=== PATIENT | male | born 1950 | race Caucasian/White ===

== ENCOUNTER 2019-12-27 12:19 | Emergency (ER) | payer MEDICARE, MEDICAID, SELFPAY ==
[2019-12-27] VITALS (27 sets, daily range): BP systolic 84–145; BP diastolic 51–72; PULSE 52–61; RESP 12–32; TEMP 36.8; O2SAT 98
--- NOTE | ~2019-12-27 | XR_ITS ---
EXAMINATION: XR chest 2V DATE: 12/27/2019 13:30 INDICATION: Weakness. Dizziness. TECHNIQUE: frontal and lateral views of the chest were obtained. COMPARISON: Chest radiograph dated 05/05/2019 FINDINGS: The lungs are clear with no focal airspace opacities, pulmonary edema, pleural effusion or pneumothor ax. The cardiomediastinal silhouette is normal. There are couple surgical clips projecting over the m edial aspect of the right posterior sulcus. IMPRESSION: 1. No acute cardiopulmonary disease. Reviewed, dictated and finalized at location A.
--- NOTE | 2019-12-27 12:59 | ECG_ITS ---
Measurements Intervals [place] Rate: 52 P: 68 ME: 187 QRS: 26 QRSD: 105 T: 75 QT: 453 QTc: 422 Interpretive Statements SINUS BRADYCARDIA MINIMAL Q WAVES- HIGH LATERAL LEADS BORDERLINE ECG Electronically Signed On 12-27-2019 13:19:38 CDT by Sancho Live D.O.
[2019-12-27] MEDS: SODIUM CHLORIDE 0.9% IV 1,000 ML 999 ML IV CONT (13:18)
[2019-12-27 13:32] LABS: Basophils Absolute Auto 0.1 K/mm3 (0.0-0.1); Basophils Percent Auto 0.6 % (0.2-1.2); Eosinophils Absolute Auto 0.2 K/mm3 (0-0.3); Eosinophils Percent Auto 1.7 % (0-4.4); Hematocrit 41.1 % (42.0-52.0); Hemoglobin 13.9 g/dL (14.0-18.0); Immature Granulocyte Absolute 0.04 K/mm3 (0.00-0.031); Immature Granulocyte Percent A 0.4 % (0-0.5); Lymphocytes Absolute Auto 1.15 K/mm3 (0.9-3.2); Lymphocytes Percent Auto 10.7 % (18.3-44.2); Mean Corpuscular HGB Conc 33.8 g/dl (32-36); Mean Corpuscular Hemoglobin 30.6 pg (26-34); Mean Corpuscular Volume 90.5 fl (80-100); Mean Platelet Volume 10.3 fl (7.4-10.4); Monocytes Absolute Auto 0.7 K/mm3 (0.1-0.6); Monocytes Percent Auto 6.2 % (2.6-8.5); Neutrophils Absolute Auto 8.6 K/mm3 (1.3-6.7); Neutrophils Percent Auto 80.4 % (45.5-73.1); Platelet Count Result 147 k/mm3 (150-375); Red Blood Count 4.54 M/mm3 (4.6-6.20); Red Cell Distribution Width 13.6 % (11.5-14.5); White Blood Count 10.7 K/mm3 (4.5-10.0)
[2019-12-27 13:45] LABS: Blood Urea Nitrogen 21 mg/dL (9-20); Calcium 8.3 mg/dL (8.4-10.2); Carbon Dioxide 25 mmol/L (22-30); Chloride 108 mmol/L (98-107); Estimated CRCL calculation 55 ml/min; Estimated Glomerular Filt Rate 60; Glucose 82 mg/dL (75-110); Potassium 4.6 mmol/L (3.4-5.0); Sodium 138 mmol/L (137-145)
--- NOTE | 2019-12-27 16:02 | PC.NURSE ---
Pt ambulated without difficulty. Pt denies dizziness or lightheadedness. Pt denies weakness.
--- NOTE | 2019-12-27 16:15 | ED.DIZZY ---
HPI - Dizziness General Chief Complaint: Dizziness Stated Complaint: WEAKNESS,DIZZY Time Seen by Provider: 12/27/19 13:07 History of Present Illness HPI Narrative: Patient is a 69-year-old male who presents the ER with dizziness. Patient reports he took his home medications this morning for the first time in years. A short time later he felt lightheaded and then he was so weak he could not get his head up off of his table. He went to his primary care physician yesterday and had the nurse put all of his pills in a medicine c4 planner. Patient does not know any of the medicines he takes or what they are for. Denies any chest pain or shortness of breath. No nausea/vomiting/confusion Related Data Home Medications Medication Instructions Recorded Confirmed amlodipine 12/27/19 aspirin 12/27/19 atorvastatin 12/27/19 clopidogrel 12/27/19 gabapentin 12/27/19 levothyroxine 12/27/19 lisinopril 12/27/19 metoprolol succinate PO 12/27/19 pantoprazole PO 12/27/19 quetiapine 12/27/19 Allergies Allergy/AdvReac Type Severity Reaction Status Date / Time No Known Allergies Allergy Unknown Verified 12/27/19 12:19 No Known Allergies Allergy Other Uncoded 12/27/19 12:19 Review of Systems Review of Systems: All systems reviewed & are unremarkable except as noted in HPI and below Constitutional: Constitutional: Denies chills, Denies fever(s) and Reports weakness ENT: Denies nasal congestion and Denies sore throat Cardiovascular: Cardiovascular: Denies chest pain and Denies radiating jaw, neck or arm pain Respiratory: Respiratory: Denies cough, Denies dyspnea and Denies wheezing Gastrointestinal: Gastrointestinal: Denies abdominal pain, Denies nausea and Denies vomiting PMFSH Past Medical History Medical History (Updated 12/27/19 @ 17:57 by Arjun Hernandez MD) CVA (cerebral vascular accident) Hypercholesterolemia Hypertension Hypothyroidism Surgical History Surgical History (Updated 12/27/19 @ 16:19 by Arjun Hernandez MD) H/O right nephrectomy Social History Social History (Updated 12/27/19 @ 16:20 by Arjun Hernandez MD) Smoking status: Never smoker Gender identity (if verbalized by the patient): Male Exam Narrative: Exam Narrative: GENERAL: Well-appearing, well-nourished, and in no acute distress. HEAD: Normocephalic, atraumatic. ENT: Mucous membranes moist. CHEST: Clear to auscultation. No respiratory distress. HEART: Regular rate and rhythm. Normal peripheral pulses. ABDOMEN: Soft, nontender, nondistended. EXTREMITIES: Normal range of motion. No edema. SKIN: Warm, dry, no rash. NEURO: Alert and oriented x3. Course Course Emergency Course: Patient up and ambulatory without issue. Blood pressures responded well to hydration. Suspect patient had a adverse reaction to his medications since he had been poorly compliant and is now taking them all appropriately. Recommend he not take any of his medications, he plans on going to his primary care doctor's office tomorrow to discuss his medications further. I have attempted to contact his PCP without success. Vital Signs Vital signs: Vital Signs Temperature 98.2 F 12/27/19 12:20 Pulse Rate 52 L 12/27/19 12:20 Respiratory Rate 16 12/27/19 12:20 Blood Pressure 84/51 L 12/27/19 12:20 Pulse Oximetry 98 12/27/19 12:20 Temperature 98.2 F 12/27/19 12:20 Pulse Rate 58 L 12/27/19 17:30 Respiratory Rate 14 12/27/19 17:30 Blood Pressure 122/66 12/27/19 17:16 Pulse Oximetry 98 12/27/19 12:20 MDM - Dizziness Lab Data Result diagrams: 12/27/19 13:27 12/27/19 13:27 Labs: Lab Results 12/27/19 12/27/19 12/27/19 Range/Units 13:27 13:27 13:27 WBC 10.7 H (4.5-10.0) K/mm3 RBC 4.54 L (4.6-6.20) M/mm3 Hgb 13.9 L (14.0-18.0) g/dL Hct 41.1 L (42.0-52.0) % MCV 90.5 (80-100) fl MCH 30.6 (26-34) pg MCHC 33.8 (32-36) g/dl RDW 13.6 (11.5
== END 2019-12-27 18:06 | disposition home or self-care (01) ==
PROVIDERS: Emergency Provider Emergency Medicine
DX: I95.9 Hypotension, unspecified (principal); T50.905A Adverse effect of unspecified drugs, medicaments and biological substances, initial encounter; Z86.73 Personal history of transient ischemic attack (TIA), and cerebral infarction without residual deficits; E78.00 Pure hypercholesterolemia, unspecified; I10 Essential (primary) hypertension; E03.9 Hypothyroidism, unspecified; Z90.5 Acquired absence of kidney; R00.1 Bradycardia, unspecified
CPT/HCPCS: 36415; 71046; 80048; 83605; 85025; 93005; 96360; 99283; J7030

== ENCOUNTER 2020-05-17 08:30 | Emergency (ER) | payer MEDICARE, MEDICAID, SELFPAY ==
--- NOTE | ~2020-05-17 | XR_ITS ---
EXAMINATION: XR chest 1V portable DATE: 05/17/2020 09:33 INDICATION: Shortness of breath TECHNIQUE: frontal view of the chest was obtained. COMPARISON: Chest radiograph dated 12/27/2019 FINDINGS: Small calcified nodule in the right midlung zone and calcified right hilar and mediastinal lymph node s, all consistent with old granulomatous disease. No other airspace opacities, pulmonary edema, pleur al effusion or pneumothorax. There are a couple tiny surgical clips at the medial aspect of the right posterior sulcus as seen on CT dated 01/21/2018 and which may be related to prior lung biopsy. The ca rdiomediastinal silhouette is normal. IMPRESSION: 1. No acute cardiopulmonary disease. Reviewed, dictated and finalized at location A.
[2020-05-17 08:40] VITALS: BP 157/86; PULSE 67; RESP 23; TEMP 36.8; O2SAT 96
--- NOTE | 2020-05-17 08:54 | ECG_ITS ---
Measurements Intervals [place] Rate: 64 P: 71 FL: 158 QRS: -49 QRSD: 100 T: 76 QT: 409 QTc: 424 Interpretive Statements SINUS RHYTHM LEFT ANTERIOR FASCICULAR BLOCK ABNORMAL ECG Electronically Signed On 05-17-2020 11:23:47 CDT by Sancho Live D.O.
--- NOTE | 2020-05-17 08:55 | ED.SOB ---
HPI - SOB/Dyspnea General Chief Complaint: Shortness of Breath/Dyspnea Stated Complaint: SOB Time Seen by Provider: 05/17/20 08:42 Source: patient Mode of arrival: EMS Limitations: no limitations History of Present Illness HPI Narrative: This patient is a 69 year old male who presents for evaluation of sob and possible covid. He states for the past 2 weeks he has been having sinus congestion and drainage. HE also reports over the past 2 days he feels like he is sob and he needs to take an extra breath. He denies nausea, vomiting, fever, chills, abdominal pain or chest pain. He states he did have diarrhea 3 days ago. His physician recommended that he go to the hospital to get evaluated for covid. He denies sick contacts. MD elicited complaint: shortness of breath Related Data Home Medications Medication Instructions Recorded Confirmed amlodipine 12/27/19 aspirin 12/27/19 atorvastatin 12/27/19 clopidogrel 12/27/19 gabapentin 12/27/19 levothyroxine 12/27/19 lisinopril 12/27/19 metoprolol succinate PO 12/27/19 pantoprazole PO 12/27/19 quetiapine 12/27/19 Allergies Allergy/AdvReac Type Severity Reaction Status Date / Time No Known Allergies Allergy Unknown Verified 05/17/20 08:56 No Known Allergies Allergy Other Uncoded 05/17/20 08:56 Review of Systems Review of Systems: All systems reviewed & are unremarkable except as noted in HPI and below Constitutional: Constitutional: Denies chills and Denies fever(s) ENT: Reports nasal congestion Cardiovascular: Cardiovascular: Denies chest pain Respiratory: Respiratory: Denies cough and Reports dyspnea Gastrointestinal: Gastrointestinal: Denies abdominal pain, Reports diarrhea (3 days ago) and Denies nausea Neurologic: Reports headache(s) PMFSH Past Medical History Medical History (Updated 05/17/20 @ 11:42 by Michelle Parrish MD) CVA (cerebral vascular accident) Hypercholesterolemia Hypertension Hypothyroidism Surgical History Surgical History (Updated 12/27/19 @ 16:19 by Arjun Hernandez MD) H/O right nephrectomy Social History Social History (Updated 12/27/19 @ 16:20 by Arjun Hernandez MD) Smoking status: Never smoker Gender identity (if verbalized by the patient): Male Exam Narrative: Exam Narrative: GENERAL: Well-appearing, well-nourished, and in no acute distress. HEAD: Normocephalic, atraumatic EYES: PERRLA and EOMI, conjunctiva clear without discharge EARS: TM's clear bilaterally without erythema or dullness NOSE: Nares clear, no rhinorrhea or epistaxis THROAT:Mucous membranes moist, Oropharynx normal without erythema, exudate, peritonsillar swelling or fluctuance NECK: Supple, without lymphadenopathy or mass RESPIRATORY: No respiratory distress, Airway patent, Respirations non-labored, Clear to auscultation without rales, rhonchi or wheeze HEART: Regular rate and rhythm. No murmur heard. Normal peripheral pulses. ABDOMEN: Soft, nontender, nondistended, normal active bowel sounds. No masses. No rebound or guarding, No organomegaly. EXTREMITIES: No edema, normal strength with full range of motion. SKIN: Warm, dry, normal color without rash NEURO: Alert and oriented x3. CN 2-12 grossly intact. No focal deficits. PSYCH: Normal mood and affect. Course Reevaluation(s) Reevaluation #1: I have discussed with patient that his evaluation has been unremarkable . He will be tested for covid. He is stable for discharge. Date: 05/17/20 Time: 11:39 Vital Signs Vital signs: Vital Signs Temperature 98.3 F 05/17/20 08:40 Pulse Rate 67 05/17/20 08:40 Respiratory Rate 23 H 05/17/20 08:40 Blood Pressure 157/86 H 05/17/20 08:40 Pulse Oximetry 96 05/17/20 08:40 Temperature 98.3 F 05/17/20 08:40 Pulse Rate 66 05/17/20 11:51 Respiratory Rate 18 05/17/20 11:51 Blood Pressure 118/66 05/17/20 11:51 Pulse Oximetry 99 05/17/20 11:51 MDM - SOB/Dyspnea Lab Data Attestation
[2020-05-17 09:11] LABS: Basophils Absolute Auto 0.1 K/mm3 (0.0-0.1); Basophils Percent Auto 0.9 % (0.2-1.2); Eosinophils Absolute Auto 0.3 K/mm3 (0-0.3); Eosinophils Percent Auto 3.3 % (0-4.4); Hematocrit 52.9 % (42.0-52.0); Hemoglobin 17.8 g/dL (14.0-18.0); Immature Granulocyte Absolute 0.03 K/mm3 (0.00-0.031); Immature Granulocyte Percent A 0.3 % (0-0.5); Lymphocytes Absolute Auto 1.88 K/mm3 (0.9-3.2); Lymphocytes Percent Auto 21.1 % (18.3-44.2); Mean Corpuscular HGB Conc 33.6 g/dl (32-36); Mean Corpuscular Hemoglobin 30.7 pg (26-34); Mean Corpuscular Volume 91.2 fl (80-100); Mean Platelet Volume 10.5 fl (7.4-10.4); Monocytes Percent Auto 10.9 % (2.6-8.5); Neutrophils Absolute Auto 5.7 K/mm3 (1.3-6.7); Neutrophils Percent Auto 63.5 % (45.5-73.1); Platelet Count Result 178 k/mm3 (150-375); Red Cell Distribution Width 13.6 % (11.5-14.5); White Blood Count 8.9 K/mm3 (4.5-10.0)
[2020-05-17 09:16] LABS: Alveolar/Arterial O2 Gradient 26.6 mmHg; Base Excess ABG -1.2 mEq/l (+/-2.0); Fractional Inspired Oxygen 21 %; HCO3 ABG 21.9 mEq/l (22.0-26.0); Oxygen Content ABG 23.5 %vol (16.0-22.0); Oxygen Saturation ABG 96.7 % (95.0-100.0); PO2 ABG 83.6 mmHg (80.0-100.0); PO2 FiO2 Ratio Arterial Blood 3.98 %
[2020-05-17 09:18] LABS: Alanine Aminotransferase 10 U/L (4-50); Albumin Level 4.2 g/dL (3.5-5.1); Alkaline Phosphatase 63 U/L (38-126); Anion Gap 9 mmol/L (8-16); Aspartate Amino Transferase 20 U/L (17-59); Bilirubin,Total 0.8 mg/dL (0.2-1.3); Blood Urea Nitrogen 19 mg/dL (9-20); Calcium 9.6 mg/dL (8.4-10.2); Carbon Dioxide 27 mmol/L (22-30); Chloride 105 mmol/L (98-107); Estimated CRCL calculation 65 ml/min; Estimated Glomerular Filt Rate > 60; Glucose 102 mg/dL (75-110); Sodium 141 mmol/L (137-145)
[2020-05-17 09:18] LABS: Device ROOM AIR; Modified Allen's Test Pass; Site Drawn RIGHT RADIAL
[2020-05-17 09:24] LABS: CRP 1.5 mg/dL (<1.0); D Dimer 0.44 ug/mL (<0.48)
[2020-05-17 11:24] VITALS: BP 123/57; PULSE 78; RESP 18; O2SAT 98
[2020-05-17 11:51] VITALS: BP 118/66; PULSE 66; RESP 18; O2SAT 99
[2020-05-17 23:13] LABS: SARS-CoV-2 RNA PCR Negative
== END 2020-05-17 11:52 | disposition home or self-care (01) ==
PROVIDERS: Emergency Provider General Practice
DX: R06.00 Dyspnea, unspecified (principal); Z20.828 Contact with and (suspected) exposure to other viral communicable diseases; Z86.73 Personal history of transient ischemic attack (TIA), and cerebral infarction without residual deficits; E78.00 Pure hypercholesterolemia, unspecified; I10 Essential (primary) hypertension; E03.9 Hypothyroidism, unspecified; Z90.5 Acquired absence of kidney; I44.4 Left anterior fascicular block
CPT/HCPCS: 36415; 36600; 71045; 80053; 82805; 85025; 85380; 86140; 87635; 93005; 99284; C9803; U0003

== ENCOUNTER 2021-12-17 14:02 | Emergency (ER) | payer MEDICARE, MEDICAID, SELFPAY ==
--- NOTE | ~2021-12-17 | XR_ITS ---
EXAMINATION: XR chest 2V Exam Date/Time: 12/17/2021 17:08 CDT CLINICAL HISTORY: dizziness,SOB X 2 DAYS stroke protocal HX CVA,HTN Comparison: None available. RESULT: Lines, tubes, and devices: Right posterior chest surgical clips. Lungs and pleura: Senescent/emphysematous change. Prior granulomatous disease. Otherwise clear. Cardiomediastinal silhouette: Stable cardiomediastinal silhouette. Other: No acute osseous or upper abdominal finding. IMPRESSION: No acute cardiopulmonary process Reviewed, dictated and finalized at location K.
--- NOTE | ~2021-12-17 | CT_ITS ---
EXAMINATION: CT brain wo con DATE: 12/17/2021 17:15 INDICATION: dizziness TECHNIQUE: Computed tomography (CT) of the head was performed without intravenous contrast. The mA wa s adjusted according to patient size. Iterative reconstruction technique was employed. The dose-lengt h product was 529.67 mGy-cm. COMPARISON: 06/04/2019 FINDINGS: No acute intracranial hemorrhage or extra-axial fluid collection. No hydrocephalus, mass, or herniation. No acute ischemic infarct. Unremarkable dural venous sinus attenuation. No acute osseous abnormality. The aerated spaces are clear. Moderate atrophy and chronic white matter change. Atherosclerotic intracranial calcifications. Old ri ght internal capsular and periventricular infarct. IMPRESSION: No acute intracranial process. Reviewed, dictated and finalized at location K.
[2021-12-17 14:51] VITALS: BP 118/67; PULSE 69; RESP 18; TEMP 36.6; O2SAT 98
--- NOTE | 2021-12-17 14:59 | ECG_ITS ---
Measurements Intervals [place] Rate: 61 P: 83 PA: 184 QRS: 62 QRSD: 91 T: 73 QT: 409 QTc: 413 Interpretive Statements SINUS RHYTHM NORMAL ECG Electronically Signed On 12-17-2021 15:18:07 CDT by Sancho Live D.O.
[2021-12-17 15:14] LABS: Basophils Absolute Auto 0.1 K/mm3 (0.0-0.1); Eosinophils Absolute Auto 0.3 K/mm3 (0-0.3); Eosinophils Percent Auto 3.2 % (0-4.4); Immature Granulocyte Absolute 0.03 K/mm3 (0.00-0.031); Immature Granulocyte Percent A 0.3 % (0-0.5); Lymphocytes Absolute Auto 2.78 K/mm3 (0.9-3.2); Lymphocytes Percent Auto 31.9 % (18.3-44.2); Mean Corpuscular Hemoglobin 31.9 pg (26-34); Mean Corpuscular Volume 93.8 fl (80-100); Mean Platelet Volume 9.9 fl (7.4-10.4); Monocytes Absolute Auto 0.7 K/mm3 (0.1-0.6); Monocytes Percent Auto 7.5 % (2.6-8.5); Neutrophils Absolute Auto 4.9 K/mm3 (1.3-6.7); Neutrophils Percent Auto 56.1 % (45.5-73.1); Platelet Count Result 191 k/mm3 (150-375); Red Blood Count 5.33 M/mm3 (4.6-6.20); Red Cell Distribution Width 13.6 % (11.5-14.5); White Blood Count 8.7 K/mm3 (4.5-10.0)
[2021-12-17 15:29] LABS: Alanine Aminotransferase 9 U/L (6-50); Albumin Level 4.5 g/dL (3.5-5.1); Alkaline Phosphatase 50 U/L (38-126); Anion Gap 8 mmol/L (8-16); Aspartate Amino Transferase 23 U/L (17-59); Bilirubin,Total 0.4 mg/dL (0.2-1.3); Blood Urea Nitrogen 13 mg/dL (9-20); Calcium 9.4 mg/dL (8.4-10.2); Carbon Dioxide 27 mmol/L (22-30); Chloride 102 mmol/L (98-107); Estimated CRCL calculation 78 ml/min; Estimated Glomerular Filt Rate > 60; Glucose 81 mg/dL (65-110); Potassium 3.9 mmol/L (3.4-5.0); Sodium 137 mmol/L (137-145)
--- NOTE | 2021-12-17 16:41 | ED.DIZZY ---
HPI - Dizziness General Chief Complaint: Dizziness Stated Complaint: DIZZINESS X WEEKS Time Seen by Provider: 12/17/21 16:41 Source: patient Mode of arrival: EMS Limitations: no limitations History of Present Illness HPI Narrative: The patient is a 71-year-old male with a history of previous CVA with left-sided deficit, hypertension, hyperlipidemia, presenting to the emergency department for evaluation of dizziness. Patient reports dizziness has been ongoing over the past several months, worsening in frequency over the past 2 weeks. Patient reports dizziness that will occur suddenly while he is at rest but does exacerbated with movement. Patient reports current dizziness at the time of assessment. He denies headache, vision changes. He reports difficulty hearing out of his left ear. He reports chronic left upper and lower extremity weakness secondary to his initial CVA over 2 years ago. Patient takes a daily statin, blood pressure medication but denies any anticoagulation. Patient lives at home and is able to function independently. Patient denies recent fall or injury. Denies recent head trauma. Patient denies any chest pain, reports at times he does feel short of breath. Patient is still smoking cigarettes and marijuana. He denies alcohol use. Patient denies any difficulty with speech, facial droop. He denies dysarthria. Patient lives alone, states that he is having increasing difficulty to complete his ADLs secondary to the dizziness. Related Data Home Medications Medication Instructions Recorded Confirmed amlodipine 12/27/19 aspirin 12/27/19 atorvastatin 12/27/19 clopidogrel 12/27/19 gabapentin 12/27/19 levothyroxine 12/27/19 lisinopril 12/27/19 metoprolol succinate PO 12/27/19 pantoprazole PO 12/27/19 quetiapine 12/27/19 Allergies Allergy/AdvReac Type Severity Reaction Status Date / Time No Known Allergies Allergy Unknown Verified 05/17/20 08:56 Review of Systems Review of Systems: CONSTITUTIONAL: Denies fever, chills, or sweats. EYES: Denies visual changes, redness, or discharge. ENT: Denies rhinorrhea, congestion, sore throat, or otalgia. CARDIOVASCULAR: Denies chest pain, palpitations, or edema. RESPIRATORY: Denies cough or dyspnea. GASTROINTESTINAL: Denies abdominal pain, nausea, vomiting, or diarrhea. GENITOURINARY: Denies dysuria or hematuria. SKIN: Denies rash or itching. MUSCULOSKELETAL: Denies back pain, joint pain, or myalgia. NEUROLOGIC: Denies headache, reports dizziness, reports left-sided upper and lower extremity weakness, chronic PMFSH Past Medical History Medical History CVA (cerebral vascular accident) Hypercholesterolemia Hypertension Hypothyroidism Surgical History Surgical History H/O right nephrectomy Social History Social History Smoking status: Never smoker Gender identity (if verbalized by the patient): Male Exam Narrative: GENERAL: Awake, alert, conversant HEAD: Normocephalic, atraumatic. EYES: PERRLA and EOMI. ENT: Nares clear, no rhinorrhea or epistaxis. Mucous membranes dry. TMs with cerumen impaction bilaterally. NECK: Supple. CHEST: No respiratory distress, breathing even and non labored HEART: Regular rate, sinus rhythm ABDOMEN:Non distended, non tender EXTREMITIES: Normal range of motion. No edema. SKIN: Warm, dry, no rash. NEURO:No focal deficits. Alert and oriented x3. Patient cannot complete [id number] testing in the left upper extremity secondary to his residual CVA deficit. It is normal [id number] testing in the right upper extremity. EOMs intact without nystagmus. No facial droop/asymmetry noted bilaterally. Grimace intact. Intact sensation in face. Hearing intact bilaterally. Shoulder shrug intact. Strength 5/5 bilateral upper extremities. Strength 5/5 bilateral l
[2021-12-17 16:42] VITALS: BP 139/77; PULSE 61; RESP 21; O2SAT 97
[2021-12-17 17:24] LABS: Troponin I < 0.012 ng/mL (0.000-0.034)
[2021-12-17 17:50] LABS: INR 1.1; Prothrombin Time 13.4 Seconds (11.1-14.7)
[2021-12-17] MEDS: SODIUM CHLORIDE 0.9% IV 1,000 ML 999 ML IV CONT (17:50)
[2021-12-17] MEDS: MECLIZINE HCL 25 MG TABLET PO (17:50)
[2021-12-17 17:51] LABS: Partial Thromboplastin Time 33.5 SECONDS (22.3-36.8)
[2021-12-17 18:22] LABS: Appearance Urine Clear (Clear); Bilirubin Urine 1+ (Negative); Blood Urine Negative (Negative); Color Urine Yellow (Yellow); Glucose Urine UA Negative (Negative); Ketones Urine Trace mg/dL (Negative); Leukocyte Esterase Ur Negative LEU/UL (Negative); Nitrate Urine Negative (Negative); Protein Urine Trace mg/dL (Negative); Specific Grav Ur >= 1.030 (1.001-1.035); Urobilinogen Urine 0.2 mg/dL (<2.0); pH Urine 5.5 (5.0-9.0)
[2021-12-17 18:26] LABS: Bacteria Urine Trace /hpf; Mucus Urine Rare /lpf; RBC Urine 0-2 /hpf (0-2); WBC Urine 0-3 /hpf
[2021-12-17 18:40] LABS: Add Urine Microscopic? YES
[2021-12-17 18:56] VITALS: BP 130/67; PULSE 58; RESP 18; O2SAT 94
--- NOTE | 2021-12-17 20:00 | PC.NURSE ---
This nurse also irrigated pt bilateral ears with moderate amount of cerumen irrigated from bilateral ears. This nurse also ambulated pt and pt felt minimal dizziness and stated, I do not need to use my cane . Pt was ambulatory with no assistance. MD Valencia made aware.
[2021-12-17 20:30] VITALS: BP 163/83; PULSE 78; RESP 18; O2SAT 98
== END 2021-12-17 20:30 | disposition home or self-care (01) ==
PROVIDERS: Emergency Provider Emergency Medicine; PCP Internal Medicine
DX: R42 Dizziness and giddiness (principal); H61.23 Impacted cerumen, bilateral; I69.954 Hemiplegia and hemiparesis following unspecified cerebrovascular disease affecting left non-dominant side; I10 Essential (primary) hypertension; E78.5 Hyperlipidemia, unspecified; E03.9 Hypothyroidism, unspecified; F17.210 Nicotine dependence, cigarettes, uncomplicated; Z79.82 Long term (current) use of aspirin
CPT/HCPCS: 36415; 69209; 70450; 71046; 80053; 81001; 84443; 84484; 85025; 85610; 85730; 93005; 96360; 99284; A9270; J7030

== ENCOUNTER 2022-01-14 12:49 | Inpatient (IN) | payer MEDICARE, MEDICAID, SELFPAY ==
[2022-01-14] VITALS (25 sets, daily range): BP systolic 136–183; BP diastolic 72–90; PULSE 68–93; RESP 12–25; TEMP 36.9–37.4; O2SAT 95–100; BMI 21.4; BMI 22.7
--- NOTE | ~2022-01-14 | US_ITS ---
EXAMINATION: US carotid duplex BI DATE: 01/16/2022 09:40 INDICATION: Syncope. TECHNIQUE: Grayscale, color Doppler, and pulsed Doppler images of the cervical carotid arteries were obtained. The degree of vessel stenosis is placed in one of the following categories: normal, <50%, 5 0-69%, >=70% but less than near-occlusion, near-occlusion, or total occlusion. Note that percent sten osis relative to normal distal artery lumen diameter is indirectly measured from velocity measurement s as described by Boris, et al. Radiology 2003; 229:[id number]. COMPARISON: None. FINDINGS: RIGHT: The right common carotid artery (CCA) and right internal carotid artery (ICA) are totally occluded. T here is no visible flow in the right vertebral artery. LEFT: The left CCA PSV is 127 cm/s. The left ICA PSV is 132 cm/s. The left ICA EDV is 55 cm/s. The left ICA /CCA PSV ratio is 1.0. Grayscale and color Doppler images yield an estimate of <50% diameter reductio n from plaque in the ICA. There is antegrade flow in the left vertebral artery. IMPRESSION: 1. 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 2. <50% stenosis in the left internal carotid artery. 3. No visible flow in the right vertebral artery, which may be small or occluded. Reviewed, dictated and finalized at location A. IMPRESSION: 1. Total occlusion of right internal carotid artery and right common carotid ar giuseppe. 2. <50% stenosis in the left internal carotid artery. 3. No visible flow in the right vertebral artery, which may be small or occlude d.
--- NOTE | ~2022-01-14 | MR_ITS ---
EXAMINATION: MR brain/brain stem wo con DATE: 01/17/2022 13:02 INDICATION: Carotid and vertebral occlusion. Syncope. TECHNIQUE: Magnetic resonance imaging (MRI) of the brain and brainstem was performed without intraven ous contrast. Sequences included sagittal and axial T1-weighted SE, axial diffusion-weighted FS SE, a xial T2*-weighted GRE, axial T2-weighted FLAIR Propeller, and axial T2-weighted Propeller. Apparent d iffusion coefficient (ADC) maps were created. COMPARISON: CTA brain dated 01/16/[address] brain dated 01/14/2022. FINDINGS: There are chronic right frontal parietal and right basal ganglia infarctions. There is gene ralized atrophy. There is compensatory dilation of the right lateral ventricle. There are scattered m oderate periventricular and subcortical white matter changes, most likely related to small vessel isc hemic disease (microangiopathy). No acute infarction or hemorrhage. No mass or mass effect. No midlin e shift. Structures of the posterior fossa including 7/grade cranial nerve complexes are normal. Orbi ts are symmetric without disconjugate gaze. Paranasal sinuses and mastoids are unremarkable. IMPRESSION: 1. No acute intracranial abnormality. 2: Chronic right frontoparietal and lacunar infarctions. 3: Chronic age-related findings. Reviewed, dictated and finalized at location A.
--- NOTE | ~2022-01-14 | XR_ITS ---
EXAMINATION: XR hip LT min 2V DATE: 01/15/2022 15:36 INDICATION: Left hip bipolar hemiarthroplasty. Postop. TECHNIQUE: 2 views of left hip were obtained. COMPARISON: Left hip radiograph 01/14/2022 FINDINGS: There is a bipolar left hip hemiarthroplasty in near-anatomic alignment. No fracture. Left hip joint space is normal. There is gas in the soft tissues, consistent with recent surgery. Skin sta ples are noted. IMPRESSION: 1. Bipolar left hip hemiarthroplasty in near-anatomic alignment. Reviewed, dictated and finalized at location A.
--- NOTE | ~2022-01-14 | CT_ITS ---
EXAMINATION: CTA brain carotid DATE: 01/16/2022 14:47 INDICATION: Syncope. TECHNIQUE: Computed tomographic angiography (CTA) of the head was performed without and with 100 mL O mnipaque 300 intravenous contrast. CTA of the neck was performed with intravenous contrast. Automated exposure control and iterative reconstruction technique were employed. The dose-length product was 1 678.90 mGy-cm. Maximum intensity projection and volume rendered 3D-reconstructions were created by janeth wong technologist on a separate workstation. COMPARISON: Head CT 01/14/2022 FINDINGS: HEAD CTA: There is an old infarct in right frontoparietal region. There is an old infarct in the righ t basal ganglia. There are scattered areas of low attenuation in the cerebral white matter. There is no intracranial hemorrhage, acute infarction, or abnormal intracranial mass lesion. There is ex vacuo dilatation of right lateral ventricle. There is mild mucosal thickening in the ethmoid sinuses. The mastoid air cells are normal. The orbits are normal. Left vertebral artery is dominant. There is no s ignificant stenosis of basilar artery or the posterior cerebral arteries. There is total occlusion of right internal carotid artery with reconstitution in the cavernous segment. There is no significant stenosis of the anterior cerebral arteries or middle cerebral arteries. Anterior communicating artery is normal. The posterior communicating arteries are normal. There is no aneurysm. NECK CTA: There are no pathologically enlarged lymph nodes. There is total occlusion of proximal righ t vertebral artery with reconstitution. There is moderate stenosis of origin of left vertebral artery . There is total occlusion of right common carotid artery and internal carotid artery. There is a jamar nt in right cervical carotid artery. There is plaque in proximal left internal carotid artery. There is 40% stenosis of the proximal left internal carotid artery relative to normal distal artery lumen d iameter. There is mild stenosis of left common carotid artery. There is moderate cervical spondylosis . IMPRESSION: 1. Old infarcts involving the right basal ganglia and right frontoparietal region. 2. Moderate nonspecific cerebral white matter disease, which likely represents chronic small vessel i schemic disease. 3. Total occlusion of proximal right vertebral artery with reconstitution. 4. 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 5. 40% stenosis of the proximal left internal carotid artery relative to normal distal artery lumen d iameter. 6. Moderate stenosis of origin of left vertebral artery. Reviewed, dictated and finalized at location A. IMPRESSION: 1. Old infarcts involving the right basal ganglia and right frontoparietal boby on. 2. Moderate nonspecific cerebral white matter disease, which likely represents chronic small vessel ischemic disease. 3. Total occlusion of proximal right vertebral artery with reconstitution. 4. Total occlusion of right common carotid artery and right internal carotid ar giuseppe. 5. 40% stenosis of the proximal left internal carotid artery relative to normal distal artery lumen diameter. 6. Moderate stenosis of origin of left vertebral artery.
--- NOTE | ~2022-01-14 | CT_ITS ---
EXAMINATION: CT brain wo con DATE: 01/14/2022 14:19 INDICATION: syncope . TECHNIQUE: Computed tomography (CT) of the head was performed without intravenous contrast. The mA wa s adjusted according to patient size. Iterative reconstruction technique was employed. The dose-lengt h product was 529.67 mGy-cm. COMPARISON: 12/17/2021. FINDINGS: No acute intracranial hemorrhage or extra-axial fluid collection. No hydrocephalus, mass, or herniation. No acute ischemic infarct. Unremarkable dural venous sinus attenuation. No acute osseous abnormality. The aerated spaces are clear. Moderate atrophy and chronic white matter change. Old right internal capsular and periventricular inf arcts. Atherosclerotic arterial calcifications. IMPRESSION: No acute intracranial process. Reviewed, dictated and finalized at location K.
--- NOTE | ~2022-01-14 | XR_ITS ---
EXAM: XR hip LT 2V w AP pelvis DATE: 01/14/2022 14:24 HISTORY: fall. LT HIP PAIN . COMPARISON: None available. FINDINGS: Decreased mineralization. Mildly medially and posteriorly angulated and externally rotated left femoral neck fracture. Extensive vascular calcifications. No other fracture. No dislocation. IMPRESSION: Left femoral neck fracture, with angulation and mild external rotation. Reviewed, dictated and finalized at location K. IMPRESSION: Left femoral neck fracture, with angulation and mild external rotat ion.
--- NOTE | ~2022-01-14 | XR_ITS ---
XR chest 1V portable 01/14/2022 15:56 Indication: AP portable chest Procedure: AP portable chest Comparison: 12/17/2021 Findings: Heart size is normal. There are bilateral interstitial infiltrates with peribronchial thick ening. No pleural effusion or pneumothorax. No acute osseous abnormality. There is polyarticular oste oarthritis of the shoulders. Impression: 1: Bilateral interstitial infiltrates with peribronchial thickening which may reflect edema or pneumo jonnathan. Reviewed, dictated and finalized at location B. Impression: 1: Bilateral interstitial infiltrates with peribronchial thickening which may r eflect edema or pneumonia.
--- NOTE | 2022-01-14 13:02 | ECG_ITS ---
Measurements Intervals [place] Rate: 80 P: 83 MS: 188 QRS: 50 QRSD: 94 T: 78 QT: 386 QTc: 446 Interpretive Statements SINUS RHYTHM COMPARED TO ECG 12/17/2021 15:04:30 NO SIGNIFICANT CHANGES Electronically Signed On 01-14-2022 22:15:27 CDT by Perla Gomes M.D.
[2022-01-14 13:39] LABS: Basophils Percent Auto 0.3 % (0.2-1.2); Eosinophils Absolute Auto 0.1 K/mm3 (0-0.3); Eosinophils Percent Auto 0.6 % (0-4.4); Hemoglobin 16.9 g/dL (14.0-18.0); Immature Granulocyte Absolute 0.06 K/mm3 (0.00-0.031); Immature Granulocyte Percent A 0.5 % (0-0.5); Immature Platelet Fraction Pct 8.3 % (0.9-11.2); Lymphocytes Absolute Auto 0.97 K/mm3 (0.9-3.2); Lymphocytes Percent Auto 7.8 % (18.3-44.2); Mean Corpuscular HGB Conc 33.8 g/dl (32-36); Mean Corpuscular Hemoglobin 31.5 pg (26-34); Mean Corpuscular Volume 93.1 fl (80-100); Mean Platelet Volume 10.9 fl (7.4-10.4); Monocytes Absolute Auto 0.5 K/mm3 (0.1-0.6); Neutrophils Absolute Auto 10.9 K/mm3 (1.3-6.7); Neutrophils Percent Auto 86.8 % (45.5-73.1); Platelet Count Result 137 k/mm3 (150-375); Red Blood Count 5.37 M/mm3 (4.6-6.20); Red Cell Distribution Width 12.9 % (11.5-14.5); White Blood Count 12.5 K/mm3 (4.5-10.0)
[2022-01-14 13:45] LABS: Alanine Aminotransferase 12 U/L (6-50); Albumin Level 4.6 g/dL (3.5-5.1); Alkaline Phosphatase 54 U/L (38-126); Anion Gap 9 mmol/L (8-16); Aspartate Amino Transferase 21 U/L (17-59); Bilirubin,Total 0.9 mg/dL (0.2-1.3); Blood Urea Nitrogen 25 mg/dL (9-20); Carbon Dioxide 25 mmol/L (22-30); Chloride 102 mmol/L (98-107); Estimated CRCL calculation 50 ml/min; Estimated Glomerular Filt Rate > 60; Glucose 94 mg/dL (65-110); Potassium 4.1 mmol/L (3.4-5.0); Sodium 136 mmol/L (137-145)
--- NOTE | 2022-01-14 15:31 | ED.GENADULT ---
HPI - General Adult General Chief complaint: Syncope Stated complaint: syncope, fall Time Seen by Provider: 01/14/22 13:51 Source: patient Mode of arrival: EMS Limitations: no limitations History of Present Illness HPI narrative: 71-year-old with a history of CVA here with complaints of near syncopal episode. Patient states that he was sitting on the couch was trying to get some water from the refrigerator felt extreme weakness in his left leg and fell backwards. Patient denies any loss of consciousness. Complains of mild headache. No history of chest pain or shortness of breath. Patient states that he has weakness in his lower extremity from the time he had stroke. Onset (ago): hour(s) (1) Location: lower extremity (left) Radiation: non-radiation Severity: moderate Quality: aching Pain Consistency: constant Relieving factors: rest Exacerbating factors: movement Associated symptoms: denies other symptoms Related Data Home Medications Medication Instructions Recorded Confirmed amlodipine 5 mg tablet 12/27/19 aspirin 81 mg chewable tablet 12/27/19 atorvastatin 80 mg tablet 12/27/19 clopidogrel 75 mg tablet 12/27/19 gabapentin 100 mg capsule 12/27/19 levothyroxine 50 mcg tablet 12/27/19 lisinopril 40 mg tablet 12/27/19 metoprolol succinate 25 mg PO 12/27/19 tablet,extended release 24 hr pantoprazole 40 mg tablet,delayed PO 12/27/19 release quetiapine 25 mg tablet 12/27/19 Allergies Allergy/AdvReac Type Severity Reaction Status Date / Time No Known Allergies Allergy Unknown Verified 05/17/20 08:56 Review of Systems Review of Systems: All systems reviewed & are unremarkable except as noted in HPI and below Constitutional: Constitutional: Reports no additional constitutional complaints Eyes: Eyes: Reports no additional eye complaints ENT: Reports system reviewed and no additional complaints, except as documented Cardiovascular: Cardiovascular: Reports no additional cardiovascular complaints PMFSH Past Medical History Medical History CVA (cerebral vascular accident) Hypercholesterolemia Hypertension Hypothyroidism Surgical History Surgical History H/O right nephrectomy Social History Social History Smoking status: Never smoker Gender identity (if verbalized by the patient): Male Exam Narrative: GENERAL: Well-appearing, thin, and in no acute distress. HEAD: Normocephalic, atraumatic. EYES: PERRLA and EOMI. NECK: Supple. CHEST: Clear to auscultation. No respiratory distress. HEART: Regular rate and rhythm. No murmur heard. Normal peripheral pulses. ABDOMEN: Soft, nontender, nondistended, normal active bowel sounds. EXTREMITIES: Left leg is externally rotated, tender in the hip SKIN: Warm, dry, no rash. NEURO: No focal deficits. Alert and oriented x3. PSYCH: Normal mood and affect. Course Course Emergency Course: Informed patient about his lab work, CT and x-ray findings. Discussed with Dr. Rodriguez agreed to consult. Discussed with Diana agreed to admit Vital Signs Vital signs: Vital Signs Temperature 36.9 C 01/14/22 12:48 Pulse Rate 83 01/14/22 12:48 Respiratory Rate 12 01/14/22 12:48 Blood Pressure 171/81 H 01/14/22 12:48 Pulse Oximetry 100 01/14/22 12:48 Oxygen Delivery Room Air 01/14/22 12:48 Temperature 36.9 C 01/14/22 12:48 Pulse Rate 83 01/14/22 14:46 Respiratory Rate 24 H 01/14/22 14:46 Blood Pressure 144/72 H 01/14/22 14:46 Pulse Oximetry 98 01/14/22 14:46 Oxygen Delivery Room Air 01/14/22 12:58 Medical Decision Making [facility] Narrative Medical decision making narrative: 71-year-old with a history of hypertension, CVA now having left hip pain after a fall we will do a CT of the head to make sure he has no evidence of bleed or stroke, x-ray of the he
--- NOTE | 2022-01-14 16:09 | PC.NURSE ---
unable to complete orthostatic blood pressures due to fractured hip.
--- NOTE | 2022-01-14 16:26 | PC.NURSE ---
Patient continues to deny pain and decline pain medication at this time. Patient made aware that he has an order for Morphine PRN if needed.
--- NOTE | 2022-01-14 16:29 | PC.NURSE ---
Hospitalist BRANCH CONTROLLER at bedside to assess pt.
--- NOTE | 2022-01-14 16:45 | PM.IMHP ---
H&P: HPI History of Present Illness Date/Time: 01/14/22 16:45 Chief Complaint: Left hip pain after fall. Narrative: This is a pleasant 71-year-old male smoker with history of stroke and residual left-sided weakness, hypertension, hyperlipidemia, nonobstructive coronary artery disease, and hypothyroidism who presented to the emergency department from home for evaluation of left hip pain after a fall. He was sitting on the couch watching television when he got up to get something to drink from the refrigerator. After he took several steps he began to feel lightheaded and dizzy and so he rested his arms on the counter top to steady himself. He then decided to tried ambulate back to the living room to sit down on the chair but unfortunately he began to feel very weak and he fell hard onto his left hip. He was unable to get himself up and he lay on the floor for approximately 2 hours until he was found by a worker that was coming to the home to install cable. He does not think that he lost consciousness however it certainly sounds as though he had a near syncopal episode. In fact he was seen ER last week for dizziness which seems to occur mainly with position changes. Brain CT and lab work was reassuring. He did have bilateral cerumen impaction which was cleared and it was thought that perhaps his symptoms were related to that causing peripheral dizziness. He was discharged with a prescription for meclizine. Unfortunately he continues to have episodes of dizziness, mainly with position changes. In any event, imaging today showed left femoral neck fracture and he is being admitted in this setting. Preoperative chest x-ray showed bilateral interstitial infiltrates with peribronchial thickening which may reflect edema or pneumonia and with further questioning he does endorse rhinorrhea and some chest congestion recently though he denies sinus congestion, cough, and shortness of breath. He also denies fever, chills, sweats, orthopnea, paroxysmal nocturnal dyspnea, and lower extremity edema. Appetite has been okay and he has not had nausea, vomiting, or diarrhea. He denies sick contacts, dysphagia, and concerns for aspiration. He denies head trauma and other injuries sustained in the fall. Review of Systems Review of Systems: Twelve systems were reviewed. No fever, chills, or sweats. No dysphagia or concerns for aspiration. No orthopnea, PND, or lower extremity edema. He had some chest pain with exertion 3 months ago but has not had any pain since that time. On occasion he does experience a discomfort in his chest that he has a difficult time describing though he says on occasion it feels ?like it is going to explode? and he attributes that to high blood pressure though he has not been monitoring his blood pressures at home. Except as documented, all other systems were reviewed and are negative. [facility] Past Medical History Medical History (Updated 01/14/22 @ 22:44 by Nga Rodriguez PA-C) Cerebrovascular accident Residual left-sided weakness. Coronary artery disease Nonobstructive coronary artery disease heard in February 2011. Hepatic steatosis Hypercholesterolemia Hypertension Hypothyroidism Tobacco abuse Surgical History Surgical History (Updated 01/14/22 @ 22:38 by Nga Rodriguez PA-C) History of cardiac catheterization History of right inguinal hernia repair History of right nephrectomy Removed as a child for recurrent infections. Family History Family History (Updated 01/14/22 @ 22:38 by Nga Rodriguez PA-C) Father Heat stroke Other Diabetes mellitus Heart disease Hypertension Social History Social History (Updated 01/14/22 @ 22:38 by Nga Rodriguez PA-C) Social History: Surrogate decision maker: An[employer], friend. Code status: Full code. Smoking packs per day: 2 Smoking cigarettes per day: 40.0 Years smoked: 44 Smoking pack-years: 88.00 Smoking status: Current every day smoker Tobacco type: ciga
[2022-01-14] MEDS: MORPHINE SULFATE (*CRX) 4 MG/ML INJ IV PUSH (16:58)
[2022-01-14] MEDS: ONDANSETRON INJ 4 MG/2 ML VIAL IV PUSH (16:58)
--- NOTE | 2022-01-14 17:20 | PC.NURSE ---
This patient, Kemal Thomas, was admitted to 3 [facility] Surg Room 304-01. Patient/family oriented to hospital policies and general routines including ID bracelet, bed and alarms, visiting hours, pain management, procedures, bathroom and other care routines, personal items, smoking policy, room service/diet, and visiting hours. Report received from Teri SHARIF. Information on how to activate the Rapid Response Team has been discussed. Patient/Family are encouraged to report perceived risks to care and to ask questions if they do not understand what they are told or what they should do.
[2022-01-14] MEDS: SODIUM CHLORIDE 0.9% IV 1,000 ML 100 ML IV CONT (18:52)
[2022-01-15] VITALS (20 sets, daily range): BP systolic 104–183; BP diastolic 57–87; PULSE 70–98; RESP 12–18; TEMP 36.1–37.6; O2SAT 93–100; BMI 21.3
[2022-01-15] MEDS: ONDANSETRON INJ 4 MG/2 ML VIAL IV PUSH ×2 (00:02→11:22)
[2022-01-15 03:15] LABS: SARS-CoV-2 RNA PCR Negative
[2022-01-15 06:15] LABS: Basophils Percent Auto 0.3 % (0.2-1.2); Eosinophils Percent Auto 0.1 % (0-4.4); Hematocrit 49.6 % (42.0-52.0); Hemoglobin 17.2 g/dL (14.0-18.0); Immature Granulocyte Absolute 0.07 K/mm3 (0.00-0.031); Immature Granulocyte Percent A 0.5 % (0-0.5); Lymphocytes Absolute Auto 1.58 K/mm3 (0.9-3.2); Lymphocytes Percent Auto 10.4 % (18.3-44.2); Mean Corpuscular HGB Conc 34.7 g/dl (32-36); Mean Corpuscular Hemoglobin 31.1 pg (26-34); Mean Corpuscular Volume 89.7 fl (80-100); Monocytes Percent Auto 6.4 % (2.6-8.5); Neutrophils Absolute Auto 12.5 K/mm3 (1.3-6.7); Neutrophils Percent Auto 82.3 % (45.5-73.1); Platelet Count Result 170 k/mm3 (150-375); Red Blood Count 5.53 M/mm3 (4.6-6.20); Red Cell Distribution Width 12.5 % (11.5-14.5); White Blood Count 15.2 K/mm3 (4.5-10.0)
[2022-01-15 06:28] LABS: Anion Gap 14 mmol/L (8-16); Blood Urea Nitrogen 17 mg/dL (9-20); Calcium 9.3 mg/dL (8.4-10.2); Carbon Dioxide 17 mmol/L (22-30); Chloride 107 mmol/L (98-107); Estimated CRCL calculation 70 ml/min; Estimated Glomerular Filt Rate > 60; Glucose 105 mg/dL (65-110); Magnesium 1.6 mg/dL (1.6-2.3); Potassium 3.9 mmol/L (3.4-5.0); Sodium 138 mmol/L (137-145)
[2022-01-15 06:34] LABS: NT Pro B Type Natriuretic Pept 891 pg/mL (5-100)
--- NOTE | 2022-01-15 08:51 | WPDANESEPPF ---
Anes - Initial Pre Proc Eval Procedure: Operation Date: 01/15/22 13:30 Proposed Procedures p Left Bipolar Hip Replacement - Tommy Rodriguez MD Date/Time: 01/15/22 08:51 Pre Op Diagnosis: Left Femoral Neck Fracture Patient Data Age: 71 Gender: M Height: 1.75 m Weight: 65.6 kg Last Vital Signs Temp 37.1 C 01/15/22 05:55 Pulse 91 01/15/22 05:55 Resp 18 01/15/22 05:55 BP 177/86 H 01/15/22 05:55 Pulse Ox 97 01/15/22 05:55 O2 Del Method Room Air 01/14/22 20:00 Allergies Allergy/AdvReac Type Severity Reaction Status Date / Time No Known Allergies Allergy Unknown Verified 01/14/22 18:40 Home Medications Medication Instructions Recorded Confirmed Type amlodipine 5 mg tablet 5 mg PO DAILY 12/27/19 01/14/22 History lisinopril 40 mg tablet 40 mg PO DAILY 12/27/19 01/14/22 History albuterol sulfate 90 mcg/actuation 2 puff inhalation QID PRN 05/17/20 01/14/22 Rx aerosol inhaler shortness of breath or wheezing #6.7 grams Laboratory Tests 01/14/22 01/14/22 01/14/22 02:45 13:28 13:28 WBC 12.5 K/mm3 H K/mm3 (4.5-10.0) RBC 5.37 M/mm3 M/mm3 (4.6-6.20) Hgb 16.9 g/dL g/dL (14.0-18.0) Hct 50.0 % % (42.0-52.0) MCV 93.1 fl fl (80-100) MCH 31.5 pg pg (26-34) MCHC 33.8 g/dl g/dl (32-36) RDW 12.9 % % (11.5-14.5) Plt Count 137 k/mm3 L k/mm3 (150-375) MPV 10.9 fl H fl (7.4-10.4) Immature Gran % (Auto) 0.5 % % (0-0.5) Neut % (Auto) 86.8 % H % (45.5-73.1) Lymph % (Auto) 7.8 % L % (18.3-44.2) [place] % (Auto) 4.0 % % (2.6-8.5) Eos % (Auto) 0.6 % % (0-4.4) Baso % (Auto) 0.3 % % (0.2-1.2) Lymph # (Auto) 0.97 K/mm3 K/mm3 (0.9-3.2) [place] # (Auto) 0.5 K/mm3 K/mm3 (0.1-0.6) Eos # (Auto) 0.1 K/mm3 K/mm3 (0-0.3) Baso # (Auto) 0.0 K/mm3 K/mm3 (0.0-0.1) Abs Immat Gran (auto) 0.06 K/mm3 H K/mm3 (0.00-0.031) Absolute Neuts (auto) 10.9 K/mm3 H K/mm3 (1.3-6.7) Absolute Nucleated RBC 0.0 K/mm3 K/mm3 (0.0-0.012) Nucleated RBC % 0.0 % % (0.0-0.2) % Immature Plt Fraction 8.3 % % (0.9-11.2) Sodium 136 mmol/L L mmol/L (137-145) Potassium 4.1 mmol/L mmol/L (3.4-5.0) Chloride 102 mmol/L mmol/L (98-107) Carbon Dioxide 25 mmol/L mmol/L (22-30) Anion Gap 9 mmol/L mmol/L (8-16) BUN 25 mg/dL H D mg/dL (9-20) Creatinine 1.10 mg/dL mg/dL (0.7-1.3) Estim Creat Clear Calc 50 ml/min ml/min Estimated GFR > 60 (59 - ) Glucose 94 mg/dL mg/dL (65-110) Calcium 9.0 mg/dL mg/dL (8.4-10.2) Magnesium Total Bilirubin 0.9 mg/dL mg/dL (0.2-1.3) AST 21 U/L U/L (17-59) ALT 12 U/L U/L (6-50) Alkaline Phosphatase 54 U/L U/L (38-126) C-Reactive Protein NT-Pro-B Natriuret Pep Total Protein 8.0 g/dL g/dL (6.3-8.2) Albumin 4.6 g/dL g/dL (3.5-5.1) Procalcitonin TSH (Reflex) SARS-CoV-2 RNA (RT-PCR) Negative 01/15/22 01/15/22 01/15/22 06:07 06:07 06:07 WBC RBC Hgb Hct MCV MCH MCHC RDW Plt Count MPV Immature Gran % (Auto) Neut % (Auto) Lymph % (Auto) [place] % (Auto) Eos % (Auto) Baso % (Auto) Lymph # (Auto) [place] # (Auto) Eos # (Auto) Baso # (Auto) Abs Immat Gran (auto) Absolute Neuts (auto) Absolute Nucleated RBC Nucleated RBC % % Immature Plt Fraction Sodium 138 mmol/L mmol/L
[2022-01-15] MEDS: MAGNESIUM SULF 2 GM/WATER 50ML 2 GM/50 ML BAG IVPB (09:03)
--- NOTE | 2022-01-15 09:15 | PM.CNOR ---
Assessment and Plan Assessment and plan (1) Closed displaced fracture of left femoral neck: Code(s): S72.002A - Fracture of unspecified part of neck of left femur, initial encounter for closed fracture <Adina LindSHARRON - Last Filed: 01/15/22 09:26> Status: Acute <Adina LindAKILP - Last Filed: 01/15/22 09:26> Assessment and Plan: History, exam and radiographs reviewed with the patient. Radiographs of the left hip reveal a left femoral neck fracture with angulation and mild external rotation. The fracture type and injury as well as radiographs discussed with the patient and family. Operative and nonoperative treatment options reviewed. The patient elects for operative treatment. Discussed Left Hip Bipolar Risks of surgery including but not limited to neurovascular damage, wound complications, blood clot, pulmonary embolus, stroke, myocardial infarction, anesthetic risks up to and including were reviewed. Continued pain and possible dysfunction were explained. No guarantees were offered. The patient understands and wishes to proceed. Plan: Left Hip Bipolar by Dr. Rodriguez pending medical clearance NPO in the interim. Bedrest. Cardiac Echo. Pain control. Ice. Dispo: Patient lives at home alone. History of CVA with left sided residual weakness. Now with left hip fracture. Will require SNF or ARF pending discharge for rehab. <Adina LrSHARRON clancy - Last Filed: 01/15/22 09:26> (2) Tobacco abuse: Code(s): Z72.0 - Tobacco use <Adina Tsai AKIL LindP - Last Filed: 01/15/22 09:26> Status: Acute <Adina Lrjulieth STAFF RESPIRATORY THERAPIST - Last Filed: 01/15/22 09:26> (3) Abnormal chest x-ray: Code(s): R93.89 - Abnormal findings on diagnostic imaging of other specified body structures <Adina AlvaJacquelin BeSHARRON clancy - Last Filed: 01/15/22 09:26> Status: Acute <Adina LrAKIL clancyP - Last Filed: 01/15/22 09:26> (4) Hypertension: Code(s): I10 - Essential (primary) hypertension <Adina AlvaJacquelin Lind [facility] - Last Filed: 01/15/22:26> Status: Acute <Adina Lind [facility] - Last Filed: 01/15/22 09:26> (5) Hypothyroidism: Code(s): E03.9 - Hypothyroidism, unspecified <Adina Lind [facility] - Last Filed: 01/15/22:26> Status: Acute <Adina Lind [facility] - Last Filed: 01/15/22 09:26> (6) Near syncope: Code(s): R55 - Syncope and collapse <Adina Lind [facility] - Last Filed: 01/15/22:26> Status: Acute <Adina Lind [facility] - Last Filed: 01/15/22:26> Assessment and Plan: Elevated BNP. Cardiac echo pending. Will need clearance prior to surgical intervention which is planned for today. <Adina Lind [facility] - Last Filed: 01/15/22:26> (7) Person under investigation for COVID-19: Code(s): Z20.828 - Contact with and (suspected) exposure to other viral communicable diseases <Adina Lind [facility] - Last Filed: 01/15/22 09:26> Status: Ruled-out <Adina Lind [facility] - Last Filed: 01/15/22 09:26> Assessment and Plan: COVID negative. <Adina Lind [facility] - Last Filed: 01/15/22 09:26> Assessment and Plan: Pt seen and examined. Discussed nonoperative and operative treatment options with the patient. Risks and benefits of each as well as alternatives were reviewed. All of the patient's questions were answered. The risks of surgery reviewed including but not limited to: Neurovascular damage, wound complication, infection, blood clot, pulmonary embolus, stroke, myocardial infarction, and anesthetic risks up to and including . Continued pain and possible dysfunction were explained. Specific risks of the procedure including later recurrence of deformity. No guarantees were offered. If hardware used, discussed risk of failure/ breakage and possible need for removal. If complications occur, the patient understands the need for further treatment, possible further surgery. Patient mil
[2022-01-15 09:37] LABS: Procalcitonin 0.1 ng/mL
[2022-01-15] MEDS: ACETAMINOPHEN 500 MG TABLET 1000 MG PO (12:24)
[2022-01-15] MEDS: KETOROLAC 15 MG/ML VIAL (*BKC) IV PUSH (12:29)
[2022-01-15] MEDS: LACTATED RINGERS 1,000 ML 30 ML IV CONT ×2 (12:29→15:22)
--- NOTE | 2022-01-15 12:52 | PCNSR ---
On 01/15/22, the student, Lisette King, provided care and completed [facility] documentation on this patient. I have reviewed the student's documentation and agree with the findings.
[2022-01-15] MEDS: TRANEXAMIC ACID 1,000 MG/10 ML AMPUL 1000 MG IV PUSH (13:28)
--- NOTE | 2022-01-15 13:31 | WPDHPUPDATE1 ---
History and Physical Update Update Date/Time: 01/15/22 13:31 History and Physical has been reviewed, including an updated exam of the patient. There are NO changes in the patient's condition. Risks, benefits, and alternatives have been discussed and questions answered. Patient agrees to proceed with procedure.
[2022-01-15] MEDS: ceFAZolin 2 GM/D5W 50 ML 2 GM/50 ML BAG IVPB (13:35)
--- NOTE | 2022-01-15 15:13 | PM.IMPN ---
Progress Note: A&P Assessment and Plan (1) Closed displaced fracture of left femoral neck: Code(s): S72.002A - Fracture of unspecified part of neck of left femur, initial encounter for closed fracture Status: Acute Assessment and Plan: Sustained in a fall related to a near syncopal episode. Management per Orthopedic surgery Planning for surgical repair this afternoon Supportive care. Analgesics available as needed He will need postoperative PT and OT evals (2) Near syncope: Code(s): R55 - Syncope and collapse Status: Acute Assessment and Plan: 01/14 patient had episode of near-syncope while standing up from sitting position Evaluate orthostatic vital signs. Continue fall precautions Telemetry evaluated and patient is in sinus rhythm. Telemetry can be discontinued postoperatively Echocardiogram is pending Evaluate carotid Doppler Head CT showed no acute findings (3) Community acquired pneumonia: Code(s): J18.9 - Pneumonia, unspecified organism Status: Acute Assessment and Plan: CXR on presentation showed bilateral infiltrates Patient complains of productive cough and has mild leukocytosis COVID-19 negative. Will check influenza. Continue ceftriaxone azithromycin Sputum culture ordered. Awaiting stable for collection Legionella and pneumococcal urinary antigens pending (4) Hypertension: Code(s): I10 - Essential (primary) hypertension Status: Acute Assessment and Plan: Blood pressures were reviewed and have been elevated, likely due to pain Resume lisinopril and amlodipine Monitor BP trends (5) Hypothyroidism: Code(s): E03.9 - Hypothyroidism, unspecified Status: Acute Assessment and Plan: TSH is within normal limits Continue levothyroxine (6) Tobacco abuse: Code(s): Z72.0 - Tobacco use Status: Acute Assessment and Plan: Patient smokes 2 packs per day Smoking cessation is imperative. Continue to educate regarding importance Declined nicotine patch Subjective Date/time seen: 01/15/22 15:13 Interval history: Date of service: 01/15/2022 Kemal Thomas is a 71-year-old male with a history of CVA with residual left-sided weakness, CAD, hepatic steatosis, hyperlipidemia, hypertension, hypothyroidism, and tobacco abuse who is seen in follow-up for left hip fracture following fall due to syncope. He states he feels ?awful today. He has some abdominal discomfort and states he has been belching. He needs to have a bowel movement. He denies shortness of breath but he does endorse cough that is productive of sputum. He has a visualize the sputum as he has been swallowing it. He endorses chills but denies fever. It seems that this is more just him feeling cold knee states 1 blank it is not enough. He endorses pain in his left hip which she rates as 8/10. He is planning for surgery this afternoon. He is NPO for the procedure and is very frustrated because he wants something to drink. He is also feeling hungry. He denies dizziness or lightheadedness. No chest pain or palpitations. Denies nausea or vomiting. Review of Systems Review of Systems: All systems reviewed & are unremarkable except as noted in HPI and below Exam Narrative: General: Thin, disheveled-appearing 71-year-old male, supine in bed, comfortable, NARD Neuro: awake, alert and oriented x4, speech clear, no focal neuro deficits noted HEENMT: normocephalic, atraumatic, EOMI, sclerae anicteric Respiratory diminished breath sounds bilaterally without crackles rhonchi, or wheezes, nonlabored breathing, able to speak complete sentences, occasional dry cough on exam Cardio: regular rate, regular rhythm with S1-S2 Abdomen: nondistended, normoactive bowel sounds, soft, nontender to palpation Extremities: Left leg is shortened and externally rotated, left hip is nontender to palpation, bilateral lower extremi
--- NOTE | 2022-01-15 15:34 | W.PM.PROC2 ---
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 Indicated for surgical treatment. Patient would like to proceed. Given medical comorbidities indicated for hemiarthroplasty replacement. Description of Procedure After informed consent was given, the operative extremity was marked in the preoperative holding area. The patient received intravenous antibiotics. Patient was brought to the operating room where they underwent a general anesthetic. Positioned in the lateral decubitus position nonop side down and the operative hip up. Careful gel padding was ensured for the down side. Protection of the head neck was done during turning as well as through the case. The hip was then prepped and draped in the usual sterile surgical fashion using ChloraPrep skin solution. Time-out performed confirming the patient, side of the surgery, and the plan. A longitudinal incision was then made over the lateral side of the hip with the 10-blade knife. Hemostasis was controlled with electrocautery. Dissection was carried down through the fascia, which was incised in line with the skin incision. Subfascial retractor was placed. The abductor musculature was then elevated off the lateral side of the femur leaving a cuff of tissue for repair. The short abductor musculature was then elevated off the capsule and retention sutures were placed at the corner. The capsule was then incised in line with the femoral neck and T'd at the base. This allowed exposure of the fracture. The acute fracture hematoma was evacuated. Proximal femoral cutting guide was used to make a femoral neck cut at 2 cm above the lesser trochanter. This bone was removed with a rongeur. We then removed the head with a corkscrew. This was measured on the back table. Trialing of the acetabulum was done and a size 51mm had excellent fit. The acetabulum was thoroughly irrigated and suctioned. Part of the fovea was removed with cautery. The rest of the acetabulum was inspected and noted to be with minimal degenerative changes. The proximal femur was then prepared. A posterior femoral retractor elevator was placed and a box cutting chisel was used to enter the femoral canal. We then used the canal finder. Broaching was then performed sequentially in 1 mm increments from a size 4 up to a size 12. This was noted to have excellent fit. We then trialed the hip. Excellent fit, stability with external and internal rotation at full extension and flexion of his hip and leg shuck were noted. The trial components were then removed. There was thorough irrigation with antibiotic solution of the proximal femur, acetabulum, and the wound. The femoral stem was then impacted into place. Good fit was noted. Trialing was once again performed and a -3 stem with a 51 mm acetabular cup had excellent stability and range of motion. The trial components were removed and the 28 mm head acetabular cup were then impacted onto the femoral stem. The hip was then reduced once again, taken through full range of motion and noted to be stable with the leg extended in full external and internal rotation with the hip flexed to 90 degrees with internal and external rotation. There was equal leg length noted. Wound was thoroughly irrigated with antibiotic solution. The capsule was repaired with #1 Vicryl interrupted suture. The abductors were repaired back with #1 Vicryl interrupted suture. The fascia was repaired with 0 Vicryl running suture. Subcutaneous tissue was repaired in layers with 2-0 Vicryl interrupted suture. Skin repaired with malissa. A sterile dressing was placed. A hip abduction safety pillow was applied. The patient was then returned supine, extubated a
[2022-01-15] MEDS: SENNA/DOCUSATE SODIUM TABLET 2 TAB PO (17:16)
[2022-01-15 17:32] LABS: Influenza Control Positive
[2022-01-15] MEDS: KCL 20 MEQ/D5/0.45% SOD CHL 1,000 ML 80 ML IV CONT (18:54)
[2022-01-15] MEDS: FAMOTIDINE 20 MG TABLET PO (20:41)
--- NOTE | 2022-01-15 22:47 | ECHO_ITS ---
Patient Info Name: Kemal Thomas Age: 71 years : 1950 Gender: Male Ht: 69 in Wt: 153 lbs BSA: 1.84 m2 HR: 78 bpm BP: 177 / 86 mmHg Heart Rhythm: Sinus Rhythm Technical Quality: Fair Exam Date: 01/15/2022 10:11 AM [facility] Patient Status: Inpatient Admit Date: 01/14/2022 Staff Ordering Physician: Nga Rodriguez PA-C Hand Splitter: Heather Mcfarland RDCS Attending Provider: Claribel Gasca PA-C Referring Physician: Jennifer NAGEL; Exam Type: CA echo doppler color flow Study Info Indications - near syncope hypertension cad Complete two-dimensional, color flow and Doppler transthoracic echocardiogram is performed. Summary 1. Complete two-dimensional, color flow and Doppler transthoracic echocardiogram is performed. 2. Normal left ventricular size and and thickness, with overall good contractility, ejection fraction 65-70%. Probable basal inferior wall hypokinesis. Normal diastolic function. 3. Left atrial chamber dimension is mildly enlarged. 4. There is mild aortic valve regurgitation. 5. Moderate pulmonary hypertension, estimated pulmonary arterial systolic pressure is 47 mmHg. 6. Normal sinus rhythm. 7. Technically difficult study with limited views. Left Ventricle Left ventricular chamber dimension is normal. Left ventricular systolic function is normal, estimated at 65-70%. There is no increased left ventricular wall thickness. Left ventricular septal wall motion is normal. The left ventricular diastolic function is normal. Right Ventricle Right ventricular chamber dimension is normal. Right ventricular systolic function is normal. Left Atria Left atrial chamber dimension is mildly enlarged. Right Atria Right atrial chamber dimension is normal. Aortic Valve The aortic valve is trileaflet. There is mild aortic valve sclerosis. There is no aortic valve stenosis. There is mild aortic valve regurgitation. Pulmonic Valve The pulmonic valve is normal. There is no pulmonic valve stenosis. There is no pulmonic regurgitation. Mitral Valve The mitral valve has normal leaflets. There is no mitral valve stenosis. There is no mitral valve regurgitation. Tricuspid Valve The tricuspid valve leaflets are normal. There is no significant tricuspid valve stenosis. There is trace tricuspid valve regurgitation. Moderate pulmonary hypertension, estimated pulmonary arterial systolic pressure is 47 mmHg. Pericardium/Pleural The pericardium appears normal. There is no pericardial effusion. Inferior Vena Cava Not well visualized inferior vena cava with >50% collapse upon inspiration consistent with Empty right atrial pressure, 10 mmHg. Aorta The aortic root size at the sinus of Valsalva is normal. The prox ascending aorta size is not well visualized. Left Ventricular Outflow Tract Name Value Normal LVOT 2D LVOT Diameter 2.0 cm LVOT Doppler LVOT Peak Gradient 10 mmHg LVOT Mean Gradient 6 mmHg LVOT VTI 28 cm LVOT VT
[2022-01-16] VITALS (11 sets, daily range): BP systolic 82–132; BP diastolic 40–74; PULSE 72–88; RESP 17–18; TEMP 36.4–36.7; O2SAT 97–100
[2022-01-16] MEDS: KCL 20 MEQ/D5/0.45% SOD CHL 1,000 ML 80 ML IV CONT (06:21)
[2022-01-16 07:43] LABS: Basophils Percent Auto 0.1 % (0.2-1.2); Hematocrit 40.8 % (42.0-52.0); Immature Granulocyte Absolute 0.07 K/mm3 (0.00-0.031); Immature Granulocyte Percent A 0.4 % (0-0.5); Lymphocytes Absolute Auto 0.88 K/mm3 (0.9-3.2); Lymphocytes Percent Auto 5.6 % (18.3-44.2); Mean Corpuscular HGB Conc 34.3 g/dl (32-36); Mean Corpuscular Hemoglobin 31.5 pg (26-34); Mean Corpuscular Volume 91.7 fl (80-100); Mean Platelet Volume 11.1 fl (7.4-10.4); Monocytes Absolute Auto 1.3 K/mm3 (0.1-0.6); Monocytes Percent Auto 8.5 % (2.6-8.5); Neutrophils Absolute Auto 13.3 K/mm3 (1.3-6.7); Neutrophils Percent Auto 85.4 % (45.5-73.1); Platelet Count Result 137 k/mm3 (150-375); Red Blood Count 4.45 M/mm3 (4.6-6.20); Red Cell Distribution Width 12.7 % (11.5-14.5); White Blood Count 15.6 K/mm3 (4.5-10.0)
--- NOTE | 2022-01-16 10:14 | PCNFU ---
Nutrition Follow-Up Complete: Inadequate oral intake related to decreased appetite as evidenced by unintentional weight loss of 50lbs within last 6 months. Goal: Eating 75% or more of meals with Ensure Compact BID ([id number], Pro 9gm each). - Pt is not meeting current goal, continue current goal. Pt current nutrition is full liquid. Last recorded weight is 70.2 kg, up 4.6 kg from reported wt on 01/15. Bowel Motility: no new BM reported Labs Reviewed: Hct 40.8 Meds Noted: Zofran-Nausea Skin: WNL Additional Notes: Pt reports good appetite but is consuming 10% of meals (01/15) due to pt report of dull food. Pt has advanced from NPO to full liquid and will start receiving Ensure Compact BID (220kcal, 9gm/pro each). Monitor changes in weight, meal consumption %, and labs every 3 days.
[2022-01-16] MEDS: ASPIRIN 325 MG ENTERIC TABLET 650 MG PO (10:40)
[2022-01-16] MEDS: polyethylene glycoL 3350 17 GM POWD.PACK PO (10:40)
[2022-01-16] MEDS: amLODIPine BESYLATE 5 MG TABLET PO (10:40)
[2022-01-16] MEDS: SENNA/DOCUSATE SODIUM TABLET 2 TAB PO ×2 (10:40→17:52)
[2022-01-16] MEDS: lisinopriL 20 MG TABLET 40 MG PO (10:41)
[2022-01-16] MEDS: FAMOTIDINE 20 MG TABLET PO ×2 (10:41→21:42)
[2022-01-16] MEDS: SODIUM CHLORIDE 0.9% IV 500 ML IV CONT (10:49)
--- NOTE | 2022-01-16 11:52 | PCNSR ---
On 01/16/22, the student, Lisette King, provided care and completed [facility] documentation on this patient. I have reviewed the student's documentation and agree with the findings.
--- NOTE | 2022-01-16 12:45 | PM.PNORT ---
Progress Note: A&P Assessment and Plan (1) S/P hip hemiarthroplasty: Code(s): Z96.649 - Presence of unspecified artificial hip joint Status: Acute Assessment and Plan: POD #1: L Hip Hemiarthroplasty Continue PT/OT. WBAT. Walker. HIGH FALL RISK. Continue pain control. Ice Hip. Protect skin. DVT prophylaxis with Aspirin. SCDs. Incentive Spirometry Use reviewed. Monitor Dressing. Change prior to discharge. Apply mepilex silver dressing before discharge. Bowel Regimen. Dispo: SNF for rehab pending medical clearance. Subjective Subjective Date/Time Seen: 01/16/22 12:45 Post Op day: 1 Interval history: POD #1: Left Hip Bipolar Patient doing well. No new concerns. Pain well controlled. Slow progress with PT/OT. Review of Systems Constitutional: Constitutional: Denies chills, Denies fatigue, Denies fever(s), Denies night sweats and Denies weakness Cardiovascular: Cardiovascular: Denies chest pain, Denies lightheadedness, Denies palpitations and Denies dyspnea Respiratory: Respiratory: Denies cough, Denies dyspnea and Denies wheezing Gastrointestinal: Gastrointestinal: Denies abdominal pain, Denies diarrhea, Denies nausea and Denies vomiting Musculoskeletal: Musculoskeletal: Reports arthralgias (left hip ), Reports joint swelling (left hip ) and Denies numbness Neurologic: Denies numbness and Denies weakness Endocrine: Endocrine: Denies fatigue and Denies palpitations Allergic/Immunologic: Allergic/Immunologic: Denies wheezing Exam Const: General: comfortable and no acute distress Orientation/consciousness: patient oriented x3 Limitations: no limitations Resp: Effort & Inspection: normal respiratory effort Cardio: Rate: regular rate Rhythm: regular rhythm GI: Inspection: non-distended Skin: General skin exam: normal color Wounds: wounds noted (incision left hip C/D/I ) Neuro: General: patient oriented x3 Extrem: Left lower extremity: hip/thigh Details: tenderness Location: of the hip Location: laterally and anteriorly, swelling (thigh soft ) Location: of the hip (lateral. ), abnormal ROM (limitations with internal/external rotation and flexion/extension due to recent surgical intervention ) and other (incision lateral hip c/d/i. ), knee Details: normal to inspection and normal ROM; no tenderness and no swelling, lower leg (Negative Amber's Sign ) Details: no edema, ankle (+ankle dorsiflexion/plantarflexion ) Details: normal to inspection, no edema and normal ROM; no tenderness, no swelling and no warmth and foot Details: normal capillary refill, toes with normal ROM, vascular exam Details: dorsalis pedis pulse present and motor-sensory exam light-touch normal in all toes; no tenderness, no ecchymosis and no crepitus Psych: Mental Status: mental status grossly normal Affect: normal affect Objective Data Vital Signs Vital Signs: Vital Signs - 24 hr 01/15/22 15:22 01/15/22 15:28 01/15/22 15:35 Temperature 36.2 C L Pulse Rate 89 82 95 Respiratory Rate 12 14 16 Blood Pressure 111/59 L 138/64 145/62 H Pulse Oximetry 100 99 100 Oxygen Delivery Simple Face Mask Simple Face Mask Simple Face Mask Oxygen Flow Rate 6 10 10 01/15/22 15:50 01/15/22 16:05 01/15/22 16:20 Temperature 36.1 C L 36.4 C L 36.6 C Pulse Rate 82 72 70 Respiratory Rate 13 16 16 Blood Pressure 131/58 L 120/62 115/57 L Pulse Oximetry 100 95 93 Oxygen Delivery Simple Face Mask Room Air Room Air Oxygen Flow Rate 10 01/15/22 16:35 01/15/22 17:29 01/15/22 18:05 Temperature 36.3 C L 36.3 C L Pulse Rate 75 74 73 Respiratory Rate 18 18 18 Blood Pressure 123/64 112/66 104/62 Pulse Oximetry 98 100 100 Oxygen Delivery Room Air Oxygen Flow Rate 01/15/22 18:21 01/15/22 21:48 01/15/22 20:00 Temperature 36.3 C L 36.7 C Pulse Rate 83 75 78 Respiratory Rate 18 17 Blood Pressure 105/74 127/63 Pulse Oximetry 100 97 Oxygen Delivery Oxygen Flow Rate 01/15/22 20:00 01/16/22 03:
[2022-01-16 13:42] LABS: Anion Gap 3 mmol/L (8-16); Blood Urea Nitrogen 11 mg/dL (9-20); Calcium 8.5 mg/dL (8.4-10.2); Carbon Dioxide 27 mmol/L (22-30); Chloride 108 mmol/L (98-107); Estimated CRCL calculation 85 ml/min; Estimated Glomerular Filt Rate > 60; Glucose 112 mg/dL (65-110); Potassium 3.9 mmol/L (3.4-5.0); Sodium 138 mmol/L (137-145)
--- NOTE | 2022-01-16 13:44 | P.PNIM_ITS ---
Progress Note: A&P Assessment and Plan (1) Closed displaced fracture of left femoral neck: Code(s): S72.002A - Fracture of unspecified part of neck of left femur, initial encounter for closed fracture Status: Acute Assessment and Plan: Sustained in a fall related to a near syncopal episode. * Management per Orthopedic surgery * Status post hip hemiarthroplasty. POD #!. * Supportive care. Analgesics available as needed * Appreciate PT/OT eval (2) Near syncope: Code(s): R55 - Syncope and collapse Status: Acute Assessment and Plan: 01/14 patient had episode of near-syncope while standing up from sitting position * Patient found to be orthostatic, BP declined to 82/40 upon standing * Will administer IV fluid bolus. Initiate Maged hose. * Continue fall precautions * Monitor on telemetry overnight with no dysrhythmias. Will discontinue telemetry. * Echocardiogram revealed EF 65-70% with basal inferior wall hypokinesis and normal diastolic function * Carotid Doppler with total occlusion of the right internal carotid on right common carotid, no visible flow in the right vertebral artery which may be small or occluded, <50% stenosis of the left internal carotid artery. * Head CT showed no acute findings (3) Carotid artery disease: Code(s): I77.9 - Disorder of arteries and arterioles, unspecified Status: Acute Assessment and Plan: Please see above * Obtain head/neck CTA * Further evaluation/intervention following results of CTA (4) Community acquired pneumonia: Code(s): J18.9 - Pneumonia, unspecified organism Status: Acute Assessment and Plan: CXR on presentation showed bilateral infiltrates * Patient complains of productive cough and has mild leukocytosis * COVID-19 negative. Influenza negative * Continue ceftriaxone and azithromycin * Sputum culture ordered. Awaiting sample for collection (5) Hypertension: Code(s): I10 - Essential (primary) hypertension Status: Acute Assessment and Plan: Blood pressures were reviewed were elevated prior to surgery, now running on the low end * Resume lisinopril and amlodipine * Hold p.o. antihypertensives (6) Hypothyroidism: Code(s): E03.9 - Hypothyroidism, unspecified Status: Acute Assessment and Plan: TSH is within normal limits * Continue levothyroxine (7) Tobacco abuse: Code(s): Z72.0 - Tobacco use Status: Acute Assessment and Plan: Patient smokes 2 packs per day * Smoking cessation is imperative. Continue to educate regarding importance * Declined nicotine patch Subjective Date/time seen: 01/16/22 13:44 Interval history: Date of service: 01/16/2022 Kemal Thomas is a 71-year-old male with a history of CVA with residual left- sided weakness, CAD, hepatic steatosis, hyperlipidemia, hypertension, hypothyroidism, and tobacco abuse who is seen in follow-up for left hip fracture following fall due to syncope. He is feeling well today. He tolerated his procedure well. His pain has been well controlled. He currently reports hip pain rated 3/10. This morning he stood up in pivoted and sat in a chair for a while. With movement his pain was 10/10. Denies dizziness or lightheadedness with movement or positional change. He denies shortness of breath, cough, or chest pain. No nausea, vomiting, fever, or chills. He is tolerating his diet. His last bowel movement was prior to admission. He reports regular urination and denies dysuria or kip
--- NOTE | 2022-01-16 13:44 | PM.IMPN ---
Progress Note: A&P Assessment and Plan (1) Closed displaced fracture of left femoral neck: Code(s): S72.002A - Fracture of unspecified part of neck of left femur, initial encounter for closed fracture Status: Acute Assessment and Plan: Sustained in a fall related to a near syncopal episode. Management per Orthopedic surgery Status post hip hemiarthroplasty. POD #!. Supportive care. Analgesics available as needed Appreciate PT/OT eval (2) Near syncope: Code(s): R55 - Syncope and collapse Status: Acute Assessment and Plan: 01/14 patient had episode of near-syncope while standing up from sitting position Patient found to be orthostatic, BP declined to 82/40 upon standing Will administer IV fluid bolus. Initiate Maged hose. Continue fall precautions Monitor on telemetry overnight with no dysrhythmias. Will discontinue telemetry. Echocardiogram revealed EF 65-70% with basal inferior wall hypokinesis and normal diastolic function Carotid Doppler with total occlusion of the right internal carotid on right common carotid, no visible flow in the right vertebral artery which may be small or occluded, <50% stenosis of the left internal carotid artery. Head CT showed no acute findings (3) Carotid artery disease: Code(s): I77.9 - Disorder of arteries and arterioles, unspecified Status: Acute Assessment and Plan: Please see above Obtain head/neck CTA Further evaluation/intervention following results of CTA (4) Community acquired pneumonia: Code(s): J18.9 - Pneumonia, unspecified organism Status: Acute Assessment and Plan: CXR on presentation showed bilateral infiltrates Patient complains of productive cough and has mild leukocytosis COVID-19 negative. Influenza negative Continue ceftriaxone and azithromycin Sputum culture ordered. Awaiting sample for collection (5) Hypertension: Code(s): I10 - Essential (primary) hypertension Status: Acute Assessment and Plan: Blood pressures were reviewed were elevated prior to surgery, now running on the low end Resume lisinopril and amlodipine Hold p.o. antihypertensives (6) Hypothyroidism: Code(s): E03.9 - Hypothyroidism, unspecified Status: Acute Assessment and Plan: TSH is within normal limits Continue levothyroxine (7) Tobacco abuse: Code(s): Z72.0 - Tobacco use Status: Acute Assessment and Plan: Patient smokes 2 packs per day Smoking cessation is imperative. Continue to educate regarding importance Declined nicotine patch Subjective Date/time seen: 01/16/22 13:44 Interval history: Date of service: 01/16/2022 Kemal Thomas is a 71-year-old male with a history of CVA with residual left-sided weakness, CAD, hepatic steatosis, hyperlipidemia, hypertension, hypothyroidism, and tobacco abuse who is seen in follow-up for left hip fracture following fall due to syncope. He is feeling well today. He tolerated his procedure well. His pain has been well controlled. He currently reports hip pain rated 3/10. This morning he stood up in pivoted and sat in a chair for a while. With movement his pain was 10/10. Denies dizziness or lightheadedness with movement or positional change. He denies shortness of breath, cough, or chest pain. No nausea, vomiting, fever, or chills. He is tolerating his diet. His last bowel movement was prior to admission. He reports regular urination and denies dysuria or hematuria. Review of Systems Review of Systems: All systems reviewed & are unremarkable except as noted in HPI and below Exam Narrative: General: Thin, disheveled-appearing 71-year-old male, supine in bed, comfortable, NARD Neuro: awake, alert and oriented x4, speech clear, no focal neuro deficits noted HEENMT: normocephalic, atraumatic, EOMI, sclerae anicteric Respiratory: Clear to auscultation bilaterally witho
[2022-01-16] MEDS: diazePAM (*CRX) 5 MG TABLET PO (17:56)
[2022-01-16] MEDS: HYDROcodone/acetaminophen (*CRX) 7.5-325 MG TABLET 1 TAB PO (22:00)
[2022-01-17 05:26] VITALS: BP 108/58; PULSE 72; RESP 18; TEMP 36.9; O2SAT 98
[2022-01-17 06:34] LABS: Hematocrit 36.3 % (42.0-52.0); Hemoglobin 12.4 g/dL (14.0-18.0); Immature Platelet Fraction Pct 6.5 % (0.9-11.2); Mean Corpuscular HGB Conc 34.2 g/dl (32-36); Mean Corpuscular Hemoglobin 31.3 pg (26-34); Mean Corpuscular Volume 91.7 fl (80-100); Mean Platelet Volume 10.8 fl (7.4-10.4); Platelet Count Result 110 k/mm3 (150-375); Red Blood Count 3.96 M/mm3 (4.6-6.20); Red Cell Distribution Width 12.9 % (11.5-14.5); White Blood Count 10.8 K/mm3 (4.5-10.0)
[2022-01-17 06:43] LABS: Anion Gap 2 mmol/L (8-16); Blood Urea Nitrogen 15 mg/dL (9-20); Calcium 8.5 mg/dL (8.4-10.2); Carbon Dioxide 26 mmol/L (22-30); Chloride 109 mmol/L (98-107); Estimated CRCL calculation 85 ml/min; Estimated Glomerular Filt Rate > 60; Glucose 94 mg/dL (65-110); Potassium 3.7 mmol/L (3.4-5.0); Sodium 137 mmol/L (137-145)
[2022-01-17 08:00] VITALS: BP 99/65; PULSE 67; RESP 16; TEMP 36.2; O2SAT 98
[2022-01-17] MEDS: ASPIRIN 325 MG ENTERIC TABLET 650 MG PO (08:04)
[2022-01-17] MEDS: SENNA/DOCUSATE SODIUM TABLET 2 TAB PO (08:04)
[2022-01-17] MEDS: FAMOTIDINE 20 MG TABLET PO ×2 (08:04→21:44)
[2022-01-17] MEDS: polyethylene glycoL 3350 17 GM POWD.PACK PO (08:04)
[2022-01-17] MEDS: ATORVASTATIN 40 MG TABLET PO (08:04)
[2022-01-17 08:41] VITALS: BP 135/70; BP 136/80
--- NOTE | 2022-01-17 10:24 | PM.PNORT ---
Progress Note: A&P Assessment and Plan (1) S/P hip hemiarthroplasty: Code(s): Z96.649 - Presence of unspecified artificial hip joint Status: Acute Assessment and Plan: POD #2: L Hip Hemiarthroplasty Continue PT/OT. WBAT. Walker. HIGH FALL RISK. Continue pain control. Ice Hip. Protect skin. DVT prophylaxis with Aspirin. SCDs. Incentive Spirometry Use reviewed. Monitor Dressing. Change prior to discharge. Apply mepilex silver dressing before discharge. Bowel Regimen. Dispo: SNF for rehab pending medical clearance. Subjective Subjective Date/Time Seen: 01/17/22 10:24 Post Op day: 2 Principal diagnosis: LT hip fx Interval history: Feels better today. Mild let hip pain Exam Const: General: comfortable and no acute distress Orientation/consciousness: patient oriented x3 Limitations: no limitations Resp: Effort & Inspection: normal respiratory effort Cardio: Rate: regular rate Rhythm: regular rhythm GI: Inspection: non-distended Skin: General skin exam: normal color Wounds: wounds noted (incision left hip C/D/I ) Neuro: General: patient oriented x3 Extrem: Left lower extremity: hip/thigh Details: tenderness Location: of the hip Location: laterally and anteriorly, swelling (thigh soft ) Location: of the hip (lateral. ), abnormal ROM (limitations with internal/external rotation and flexion/extension due to recent surgical intervention ) and other (incision clean and dry), knee Details: normal to inspection and normal ROM; no tenderness and no swelling, lower leg (Negative Amber's Sign ) Details: no edema, ankle (+ankle dorsiflexion/plantarflexion ) Details: normal to inspection, no edema and normal ROM; no tenderness, no swelling and no warmth and foot Details: normal capillary refill, toes with normal ROM, vascular exam Details: dorsalis pedis pulse present and motor-sensory exam light-touch normal in all toes; no tenderness, no ecchymosis and no crepitus Psych: Mental Status: mental status grossly normal Affect: normal affect Objective Data Vital Signs Vital Signs: Vital Signs - 24 hr 01/16/22 14:00 01/16/22 10:40 01/16/22 12:00 Temperature 97.9 F Pulse Rate 85 74 Respiratory Rate 18 Blood Pressure 132/48 L Pulse Oximetry 100 Oxygen Delivery Room Air 01/16/22 16:00 01/16/22 21:46 01/17/22 05:26 Temperature 98.1 F 98.4 F Pulse Rate 82 88 72 Respiratory Rate 17 18 Blood Pressure 130/63 108/58 L Pulse Oximetry 97 98 Oxygen Delivery 01/16/22 20:00 01/17/22 08:00 01/17/22 08:00 Temperature 97.2 F L Pulse Rate 72 67 Respiratory Rate 18 16 Blood Pressure 99/65 L Pulse Oximetry 98 98 Oxygen Delivery Room Air Room Air 01/17/22 08:41 01/17/22 08:41 Temperature Pulse Rate Respiratory Rate Blood Pressure 135/70 136/80 Pulse Oximetry Oxygen Delivery Intake/Output Intake/Output: Intake & Output 01/14/22 01/15/22 01/16/22 01/17/22 23:59 23:59 23:59 23:59 Intake Total 2440 3440 310 Output Total 1600 1250 375 Balance 840 2190 -65 Meds/Results Medications: Active Medications Generic Name Dose Route Start Last Admin Trade Name Marshalq PRN Reason Stop Dose Admin Acetaminophen 650 mg 01/14/22 15:42 Acetaminophen 325 Mg Tablet PO Q4H PRN Mild Pain (1-3) or Fever Hydrocodone Bitart/Acetaminophen 1 tab 01/15/22 16:44 01/16/22 22:00 Hydrocodone/Acetaminophen (*Crx) 7.5-325 Mg Tablet PO 1 tab Q3H PRN Administration Pain Rated 4-6 Albuterol 2 puff 01/15/22 16:44 Albuterol Sulfate (*Sp) Aerosol 1 Puff INHALATION QID PRN shortness of breath or wheezing Amlodipine Besylate 5 mg 01/16/22 09:00 01/16/22 10:40 Amlodipine Besylate 5 Mg Tablet PO 5 mg QAM AJAY Administration Aspirin 650 mg 01/16/22 09:00 01/17/22 08:04 Aspirin 325 Mg Enteric Tablet PO 650 mg DAILY AJAY Administration Atorvastatin Calcium 40 mg 01/17/22 09:00 01/17/22 08:04 Atorvastati
[2022-01-17 13:46] VITALS: BP 101/54; PULSE 77; RESP 18; TEMP 36.4; O2SAT 99
--- NOTE | 2022-01-17 15:18 | P.PNIM_ITS ---
Progress Note: A&P Assessment and Plan (1) Closed displaced fracture of left femoral neck: Code(s): S72.002A - Fracture of unspecified part of neck of left femur, initial encounter for closed fracture Status: Acute Assessment and Plan: Sustained in a fall related to a near syncopal episode. * Management per Orthopedic surgery * Status post hip hemiarthroplasty. POD #2. * Supportive care. Analgesics available as needed * Appreciate PT/OT eval (2) Near syncope: Code(s): R55 - Syncope and collapse Status: Acute Assessment and Plan: 01/14 patient had episode of near-syncope while standing up from sitting position * Patient found to be orthostatic. Maged hose applied and he was rehydrated with IV fluids. Subsequent orthostatic vital signs negative. * Continue fall precautions * Monitored on telemetry overnight with no dysrhythmias. Tele discontinued * Echocardiogram revealed EF 65-70% with basal inferior wall hypokinesis and normal diastolic function * Evidence of carotid artery disease, this is likely etiology. * Head CT showed no acute findings (3) Carotid artery disease: Code(s): I77.9 - Disorder of arteries and arterioles, unspecified Status: Acute Assessment and Plan: Carotid Doppler showed total occlusion of the right internal carotid artery and right common carotid artery with no visible flow in the right vertebral artery and <50% stenosis of the left internal carotid artery * Follow-up head/neck CTA also showed total occlusion of the right common, right internal carotid, and right vertebral artery and 40% stenosis of the left internal carotid with moderate stenosis of the left vertebral artery * MRI completed today with no evidence of acute stroke * He will follow-up as an outpatient with Interventional Neurology at [facility]. Records will be faxed on Wednesday, 01/19. * Continue aspirin * Added atorvastatin (4) Community acquired pneumonia: Code(s): J18.9 - Pneumonia, unspecified organism Status: Acute Assessment and Plan: CXR on presentation showed bilateral infiltrates * Patient complained of productive cough and had mild leukocytosis * COVID-19 negative. Influenza negative * Continue ceftriaxone and azithromycin * Sputum culture ordered. Awaiting sample for collection * Supportive care. Pt symptomatically improved. (5) Hypertension: Code(s): I10 - Essential (primary) hypertension Status: Acute Assessment and Plan: Blood pressures were reviewed were elevated prior to surgery, now running on the low end. Last BP 101/54 * Lisinopril and amlodipine discontinued * Allow for permissive hypertension (6) Hypothyroidism: Code(s): E03.9 - Hypothyroidism, unspecified Status: Acute Assessment and Plan: TSH is within normal limits * Continue levothyroxine (7) Tobacco abuse: Code(s): Z72.0 - Tobacco use Status: Acute Assessment and Plan: Patient smokes 2 packs per day * Educated regarding smoking cessation for 6 minutes. Patient is motivated to quit smoking * Declined nicotine patch Subjective Date/time seen: 01/17/22 15:18 Interval history: Date of service: 01/17/2022 Kemal Thomas is a 71-year-old male with a history of CVA with residual left- sided weakness, CAD, hepatic steatosis, hyperlipidemia, hypertension, hypothyroidism, and tobacco abuse who is seen in follow-up for left hip fracture following fall due to near syncope. He is feeling well today. He is in good s
--- NOTE | 2022-01-17 15:18 | PM.IMPN ---
Progress Note: A&P Assessment and Plan (1) Closed displaced fracture of left femoral neck: Code(s): S72.002A - Fracture of unspecified part of neck of left femur, initial encounter for closed fracture Status: Acute Assessment and Plan: Sustained in a fall related to a near syncopal episode. Management per Orthopedic surgery Status post hip hemiarthroplasty. POD #2. Supportive care. Analgesics available as needed Appreciate PT/OT eval (2) Near syncope: Code(s): R55 - Syncope and collapse Status: Acute Assessment and Plan: 01/14 patient had episode of near-syncope while standing up from sitting position Patient found to be orthostatic. Maged hose applied and he was rehydrated with IV fluids. Subsequent orthostatic vital signs negative. Continue fall precautions Monitored on telemetry overnight with no dysrhythmias. Tele discontinued Echocardiogram revealed EF 65-70% with basal inferior wall hypokinesis and normal diastolic function Evidence of carotid artery disease, this is likely etiology. Head CT showed no acute findings (3) Carotid artery disease: Code(s): I77.9 - Disorder of arteries and arterioles, unspecified Status: Acute Assessment and Plan: Carotid Doppler showed total occlusion of the right internal carotid artery and right common carotid artery with no visible flow in the right vertebral artery and <50% stenosis of the left internal carotid artery Follow-up head/neck CTA also showed total occlusion of the right common, right internal carotid, and right vertebral artery and 40% stenosis of the left internal carotid with moderate stenosis of the left vertebral artery MRI completed today with no evidence of acute stroke He will follow-up as an outpatient with Interventional Neurology at [facility]. Records will be faxed on Wednesday, 01/19. Continue aspirin Added atorvastatin (4) Community acquired pneumonia: Code(s): J18.9 - Pneumonia, unspecified organism Status: Acute Assessment and Plan: CXR on presentation showed bilateral infiltrates Patient complained of productive cough and had mild leukocytosis COVID-19 negative. Influenza negative Continue ceftriaxone and azithromycin Sputum culture ordered. Awaiting sample for collection Supportive care. Pt symptomatically improved. (5) Hypertension: Code(s): I10 - Essential (primary) hypertension Status: Acute Assessment and Plan: Blood pressures were reviewed were elevated prior to surgery, now running on the low end. Last BP 101/54 Lisinopril and amlodipine discontinued Allow for permissive hypertension (6) Hypothyroidism: Code(s): E03.9 - Hypothyroidism, unspecified Status: Acute Assessment and Plan: TSH is within normal limits Continue levothyroxine (7) Tobacco abuse: Code(s): Z72.0 - Tobacco use Status: Acute Assessment and Plan: Patient smokes 2 packs per day Educated regarding smoking cessation for 6 minutes. Patient is motivated to quit smoking Declined nicotine patch Subjective Date/time seen: 01/17/22 15:18 Interval history: Date of service: 01/17/2022 Kemal Thomas is a 71-year-old male with a history of CVA with residual left-sided weakness, CAD, hepatic steatosis, hyperlipidemia, hypertension, hypothyroidism, and tobacco abuse who is seen in follow-up for left hip fracture following fall due to near syncope. He is feeling well today. He is in good spirits. He has no hip pain at this time. This morning when he went down for an MRI, he did have some discomfort with transferring from the bed to the table. He did participate in therapy today and took a walk using his walker. He states he tolerated this well and feels he is getting around pretty well. He has had 2 bowel movements today. He denies abdominal pain, cramping, or bloating. Appetite is good. He denies dizziness or lighthead
[2022-01-17 20:00] VITALS: PULSE 77; RESP 18; O2SAT 99
[2022-01-17] MEDS: HYDROcodone/acetaminophen (*CRX) 7.5-325 MG TABLET 1 TAB PO (22:33)
[2022-01-18] VITALS (9 sets, daily range): BP systolic 110–148; BP diastolic 54–71; PULSE 73–110; RESP 16–18; TEMP 36.8–37; O2SAT 98–100
[2022-01-18 06:39] LABS: Hematocrit 35.3 % (42.0-52.0); Hemoglobin 11.9 g/dL (14.0-18.0); Immature Platelet Fraction Pct 7.6 % (0.9-11.2); Mean Corpuscular HGB Conc 33.7 g/dl (32-36); Mean Corpuscular Hemoglobin 31.2 pg (26-34); Mean Corpuscular Volume 92.4 fl (80-100); Platelet Count Result 124 k/mm3 (150-375); Red Blood Count 3.82 M/mm3 (4.6-6.20); Red Cell Distribution Width 13.2 % (11.5-14.5); White Blood Count 10.5 K/mm3 (4.5-10.0)
[2022-01-18 06:48] LABS: Sodium 138 mmol/L (137-145)
[2022-01-18 06:52] LABS: Anion Gap 3 mmol/L (8-16); Blood Urea Nitrogen 14 mg/dL (9-20); Calcium 8.4 mg/dL (8.4-10.2); Carbon Dioxide 28 mmol/L (22-30); Chloride 107 mmol/L (98-107); Estimated CRCL calculation 84 ml/min; Estimated Glomerular Filt Rate > 60; Glucose 97 mg/dL (65-110); Potassium 3.5 mmol/L (3.4-5.0)
[2022-01-18] MEDS: ASPIRIN 325 MG ENTERIC TABLET 650 MG PO (10:17)
[2022-01-18] MEDS: polyethylene glycoL 3350 17 GM POWD.PACK PO (10:17)
[2022-01-18] MEDS: HYDROcodone/acetaminophen (*CRX) 7.5-325 MG TABLET 1 TAB PO (10:17)
[2022-01-18] MEDS: FAMOTIDINE 20 MG TABLET PO ×2 (10:18→22:33)
[2022-01-18] MEDS: ATORVASTATIN 40 MG TABLET PO (10:18)
[2022-01-18] MEDS: SENNA/DOCUSATE SODIUM TABLET 2 TAB PO ×2 (10:18→16:28)
--- NOTE | 2022-01-18 10:39 | PM.PNORT ---
Progress Note: A&P Assessment and Plan (1) S/P hip hemiarthroplasty: Code(s): Z96.649 - Presence of unspecified artificial hip joint Status: Acute Assessment and Plan: POD #3: L Hip Hemiarthroplasty Continue PT/OT. WBAT. Walker. HIGH FALL RISK. Continue pain control. Ice Hip. Protect skin. DVT prophylaxis with Aspirin. SCDs. Incentive Spirometry Use reviewed. Dressing changed to Mepilex. Dispo: SNF for rehab pending medical clearance. Subjective Subjective Date/Time Seen: 01/18/22 10:39 Post Op day: 3 (Left hip bipolar) Principal diagnosis: Left hip fracture Interval history: Patient states feeling better today. Had some difficulty with therapy yesterday and mobilization. Pain improved today. Exam Const: General: comfortable and no acute distress Orientation/consciousness: patient oriented x3 Limitations: no limitations Resp: Effort & Inspection: normal respiratory effort Cardio: Rate: regular rate Rhythm: regular rhythm GI: Inspection: non-distended Skin: General skin exam: normal color Wounds: wounds noted (incision left hip C/D/I ) Neuro: General: patient oriented x3 Extrem: Left lower extremity: hip/thigh Details: tenderness Location: of the hip Location: laterally and anteriorly, swelling (thigh soft ) Location: of the hip (lateral. ), abnormal ROM (limitations with internal/external rotation and flexion/extension due to recent surgical intervention ) and other (Dressing changed, incision clean and dry), knee Details: normal to inspection and normal ROM; no tenderness and no swelling, lower leg (Negative Amber's Sign ) Details: no edema, ankle (+ankle dorsiflexion/plantarflexion ) Details: normal to inspection, no edema and normal ROM; no tenderness, no swelling and no warmth and foot Details: normal capillary refill, toes with normal ROM, vascular exam Details: dorsalis pedis pulse present and motor-sensory exam light-touch normal in all toes; no tenderness, no ecchymosis and no crepitus Psych: Mental Status: mental status grossly normal Affect: normal affect Objective Data Vital Signs Vital Signs: Vital Signs - 24 hr 01/17/22 13:46 01/17/22 20:00 01/18/22 06:00 Temperature 97.6 F 98.4 F Pulse Rate 77 77 75 Respiratory Rate 18 18 16 Blood Pressure 101/54 L 121/71 Pulse Oximetry 99 99 98 Oxygen Delivery Room Air Intake/Output Intake/Output: Intake & Output 01/15/22 01/16/22 01/17/22 01/18/22 23:59 23:59 23:59 23:59 Intake Total 2440 3440 730 461 Output Total 1600 1250 375 150 Balance 840 2190 355 311 Meds/Results Medications: Active Medications Generic Name Dose Route Start Last Admin Trade Name Freq PRN Reason Stop Dose Admin Acetaminophen 650 mg 01/14/22 15:42 Acetaminophen 325 Mg Tablet PO Q4H PRN Mild Pain (1-3) or Fever Hydrocodone Bitart/Acetaminophen 1 tab 01/15/22 16:44 01/18/22 10:17 Hydrocodone/Acetaminophen (*Crx) 7.5-325 Mg Tablet PO 1 tab Q3H PRN Administration Pain Rated 4-6 Albuterol 2 puff 01/15/22 16:44 Albuterol Sulfate (*Sp) Aerosol 1 Puff INHALATION QID PRN shortness of breath or wheezing Aspirin 650 mg 01/16/22 09:00 01/18/22 10:17 Aspirin 325 Mg Enteric Tablet PO 650 mg DAILY AJAY Administration Atorvastatin Calcium 40 mg 01/17/22 09:00 01/18/22 10:18 Atorvastatin 40 Mg Tablet PO 40 mg DAILY AJAY Administration Bisacodyl 10 mg 01/15/22 16:44 Bisacodyl 10 Mg Suppository RECTAL DAILY PRN Constipation Diazepam 5 mg 01/15/22 16:44 01/16/22 17:56 Diazepam (*Crx) 5 Mg Tablet PO 5 mg Q8H PRN Administration Muscle Spasm Famotidine 20 mg 01/15/22 21:00 01/18/22 10:18 Famotidine 20 Mg Tablet PO 20 mg Q12HR AJAY Administration Ceftriaxone Sodium/Dextrose 1 gm in 50 mls @ 100 mls/hr 01/14/22 22:50 01/17/22 22:15 Rocephin 1 Gm/D5w 50 Ml IVPB Infused DAILY@2200 AJAY Infusion Azithromycin 500 mg in 250 mls
--- NOTE | 2022-01-18 14:03 | P.PNIM_ITS ---
Progress Note: A&P Assessment and Plan (1) Closed displaced fracture of left femoral neck: Code(s): S72.002A - Fracture of unspecified part of neck of left femur, initial encounter for closed fracture Status: Acute Assessment and Plan: Sustained in a fall related to a near syncopal episode. * Management per Orthopedic surgery * Status post hip hemiarthroplasty. POD #2. * Supportive care. Analgesics available as needed * Appreciate PT/OT eval. He will need continued therapy at SNF on discharge (2) Near syncope: Code(s): R55 - Syncope and collapse Status: Acute Assessment and Plan: 01/14 patient had episode of near-syncope while standing up from sitting position * Patient found to be orthostatic. Maged hose applied and he was rehydrated with IV fluids. Subsequent orthostatic vital signs negative. * Continue fall precautions * No evidence of dysrhythmias on telemetry * Echocardiogram revealed EF 65-70% with basal inferior wall hypokinesis and normal diastolic function * Evidence of carotid artery disease, this is likely etiology. * Head CT showed no acute findings (3) Carotid artery disease: Code(s): I77.9 - Disorder of arteries and arterioles, unspecified Status: Acute Assessment and Plan: Carotid Doppler showed total occlusion of the right internal carotid artery and right common carotid artery with no visible flow in the right vertebral artery and <50% stenosis of the left internal carotid artery * Follow-up head/neck CTA also showed total occlusion of the right common, right internal carotid, and right vertebral artery and 40% stenosis of the left internal carotid with moderate stenosis of the left vertebral artery * MRI with no evidence of acute stroke * He will follow-up as an outpatient with Interventional Neurology at [facility]. Records will be faxed on Wednesday, 01/19. * Continue aspirin and atorvastatin (4) Community acquired pneumonia: Code(s): J18.9 - Pneumonia, unspecified organism Status: Acute Assessment and Plan: CXR on presentation showed bilateral infiltrates * Patient complained of productive cough and had mild leukocytosis * COVID-19 negative. Influenza negative * Continue ceftriaxone and azithromycin #4 * Supportive care. Pt symptomatically improved. (5) Hypertension: Code(s): I10 - Essential (primary) hypertension Status: Acute Assessment and Plan: Blood pressures were reviewed were elevated prior to surgery, now running on the low end. Last BP 121/71 * Lisinopril and amlodipine discontinued * Allow for permissive hypertension (6) Hypothyroidism: Code(s): E03.9 - Hypothyroidism, unspecified Status: Acute Assessment and Plan: TSH is within normal limits * Continue levothyroxine (7) Tobacco abuse: Code(s): Z72.0 - Tobacco use Status: Acute Assessment and Plan: Patient smokes 2 packs per day * Smoking cessation is imperative, especially in light of his carotid disease * Educated regarding smoking cessation for 6 minutes. Patient is motivated to q uit smoking * Declined nicotine patch Subjective Date/time seen: 01/18/22 14:03 Interval history: Date of service: 01/18/2022 Kemal Thomas is a 71-year-old male with a history of CVA with residual left- sided weakness, CAD, hepatic steatosis, hyperlipidemia, hypertension, hypothyroidism, and tobacco abuse who is seen in follow-up for left hip fracture following fall due to near syncope. Is doing well today. He has
--- NOTE | 2022-01-18 14:03 | PM.IMPN ---
Progress Note: A&P Assessment and Plan (1) Closed displaced fracture of left femoral neck: Code(s): S72.002A - Fracture of unspecified part of neck of left femur, initial encounter for closed fracture Status: Acute Assessment and Plan: Sustained in a fall related to a near syncopal episode. Management per Orthopedic surgery Status post hip hemiarthroplasty. POD #2. Supportive care. Analgesics available as needed Appreciate PT/OT eval. He will need continued therapy at SNF on discharge (2) Near syncope: Code(s): R55 - Syncope and collapse Status: Acute Assessment and Plan: 01/14 patient had episode of near-syncope while standing up from sitting position Patient found to be orthostatic. Maged hose applied and he was rehydrated with IV fluids. Subsequent orthostatic vital signs negative. Continue fall precautions No evidence of dysrhythmias on telemetry Echocardiogram revealed EF 65-70% with basal inferior wall hypokinesis and normal diastolic function Evidence of carotid artery disease, this is likely etiology. Head CT showed no acute findings (3) Carotid artery disease: Code(s): I77.9 - Disorder of arteries and arterioles, unspecified Status: Acute Assessment and Plan: Carotid Doppler showed total occlusion of the right internal carotid artery and right common carotid artery with no visible flow in the right vertebral artery and <50% stenosis of the left internal carotid artery Follow-up head/neck CTA also showed total occlusion of the right common, right internal carotid, and right vertebral artery and 40% stenosis of the left internal carotid with moderate stenosis of the left vertebral artery MRI with no evidence of acute stroke He will follow-up as an outpatient with Interventional Neurology at [facility]. Records will be faxed on Wednesday, 01/19. Continue aspirin and atorvastatin (4) Community acquired pneumonia: Code(s): J18.9 - Pneumonia, unspecified organism Status: Acute Assessment and Plan: CXR on presentation showed bilateral infiltrates Patient complained of productive cough and had mild leukocytosis COVID-19 negative. Influenza negative Continue ceftriaxone and azithromycin #4 Supportive care. Pt symptomatically improved. (5) Hypertension: Code(s): I10 - Essential (primary) hypertension Status: Acute Assessment and Plan: Blood pressures were reviewed were elevated prior to surgery, now running on the low end. Last BP 121/71 Lisinopril and amlodipine discontinued Allow for permissive hypertension (6) Hypothyroidism: Code(s): E03.9 - Hypothyroidism, unspecified Status: Acute Assessment and Plan: TSH is within normal limits Continue levothyroxine (7) Tobacco abuse: Code(s): Z72.0 - Tobacco use Status: Acute Assessment and Plan: Patient smokes 2 packs per day Smoking cessation is imperative, especially in light of his carotid disease Educated regarding smoking cessation for 6 minutes. Patient is motivated to quit smoking Declined nicotine patch Subjective Date/time seen: 01/18/22 14:03 Interval history: Date of service: 01/18/2022 Kemal Thomas is a 71-year-old male with a history of CVA with residual left-sided weakness, CAD, hepatic steatosis, hyperlipidemia, hypertension, hypothyroidism, and tobacco abuse who is seen in follow-up for left hip fracture following fall due to near syncope. Is doing well today. He has been up and walking around with therapy and tolerating this well. His pain was 3/10 when he was ambulating. At rest it is 0/10. He states he did feel a bit lightheaded today while he was sitting up in the chair eating. When he got up for a walk he did not feel dizzy or lightheaded. He denies nausea, vomiting, fever, chills, shortness of breath, cough, chest pain. He is eating well. He had a bowel movement this morning. He denies
[2022-01-19 05:53] VITALS: BP 110/51; PULSE 79; RESP 17; TEMP 36.6; O2SAT 96
[2022-01-19 06:10] LABS: Red Cell Distribution Width 13.2 % (11.5-14.5)
[2022-01-19 06:12] LABS: Immature Platelet Fraction Pct 6.9 % (0.9-11.2)
[2022-01-19 06:26] LABS: Anion Gap 4 mmol/L (8-16); Blood Urea Nitrogen 14 mg/dL (9-20); Calcium 8.4 mg/dL (8.4-10.2); Carbon Dioxide 28 mmol/L (22-30); Chloride 103 mmol/L (98-107); Estimated CRCL calculation 98 ml/min; Estimated Glomerular Filt Rate > 60; Glucose 100 mg/dL (65-110); Potassium 3.4 mmol/L (3.4-5.0); Sodium 135 mmol/L (137-145)
[2022-01-19 06:33] LABS: Hematocrit 35.4 % (42.0-52.0); Hemoglobin 11.9 g/dL (14.0-18.0); Mean Corpuscular Hemoglobin 31.2 pg (26-34); Mean Corpuscular Volume 92.9 fl (80-100); Red Blood Count 3.81 M/mm3 (4.6-6.20); White Blood Count 10.2 K/mm3 (4.5-10.0)
[2022-01-19 06:34] LABS: Mean Corpuscular HGB Conc 33.6 g/dl (32-36); Platelet Count Result 137 k/mm3 (150-375)
[2022-01-19 08:00] VITALS: BP 102/89; PULSE 83; RESP 18; TEMP 36.9; O2SAT 97
[2022-01-19] MEDS: FAMOTIDINE 20 MG TABLET PO ×2 (08:42→22:07)
[2022-01-19] MEDS: ASPIRIN 325 MG ENTERIC TABLET 650 MG PO (08:42)
[2022-01-19] MEDS: ATORVASTATIN 40 MG TABLET PO (08:42)
--- NOTE | 2022-01-19 10:52 | PCOTNOTE ---
Attempted to see patient this am, however patient refused stating, After lunch. Physical therapy worked with me and after eating, its got me going to the bathroom a lot.
--- NOTE | 2022-01-19 12:07 | PM.PNORT ---
Progress Note: A&P Assessment and Plan (1) S/P hip hemiarthroplasty: Code(s): Z96.649 - Presence of unspecified artificial hip joint Status: Acute Assessment and Plan: POD #4: L Hip Hemiarthroplasty Continue PT/OT. WBAT. Walker. HIGH FALL RISK. Continue pain control. Ice Hip. Protect skin. DVT prophylaxis with Aspirin. SCDs. Incentive Spirometry. Dressing changed to Mepilex. Dispo: SNF for rehab pending medical clearance. Subjective Subjective Date/Time Seen: 01/19/22 12:07 Post Op day: 4 (Left hip bipolar) Principal diagnosis: Left hip fracture Interval history: Patient doing well today. Slow progress with PT/OT. Review of Systems Constitutional: Constitutional: Denies chills, Denies fatigue, Denies fever(s), Denies night sweats and Denies weakness Cardiovascular: Cardiovascular: Denies chest pain, Denies lightheadedness, Denies palpitations and Denies dyspnea Respiratory: Respiratory: Denies cough, Denies dyspnea and Denies wheezing Gastrointestinal: Gastrointestinal: Denies abdominal pain, Denies diarrhea, Denies nausea and Denies vomiting Musculoskeletal: Musculoskeletal: Reports arthralgias (left hip ), Reports joint swelling (left hip ) and Denies numbness Neurologic: Denies numbness and Denies weakness Endocrine: Endocrine: Denies fatigue and Denies palpitations Allergic/Immunologic: Allergic/Immunologic: Denies wheezing Exam Const: General: comfortable and no acute distress Orientation/consciousness: patient oriented x3 Limitations: no limitations Resp: Effort & Inspection: normal respiratory effort Cardio: Rate: regular rate Rhythm: regular rhythm GI: Inspection: non-distended Skin: General skin exam: normal color Wounds: wounds noted (incision left hip C/D/I ) Neuro: General: patient oriented x3 Extrem: Left lower extremity: hip/thigh Details: tenderness Location: of the hip Location: laterally and anteriorly, swelling (thigh soft ) Location: of the hip (lateral. ), abnormal ROM (limitations with internal/external rotation and flexion/extension due to recent surgical intervention ) and other (Dressing changed, incision clean and dry), knee Details: normal to inspection and normal ROM; no tenderness and no swelling, lower leg (Negative Amber's Sign ) Details: no edema, ankle (+ankle dorsiflexion/plantarflexion ) Details: normal to inspection, no edema and normal ROM; no tenderness, no swelling and no warmth and foot Details: normal capillary refill, toes with normal ROM, vascular exam Details: dorsalis pedis pulse present and motor-sensory exam light-touch normal in all toes; no tenderness, no ecchymosis and no crepitus Psych: Mental Status: mental status grossly normal Affect: normal affect Objective Data Vital Signs Vital Signs: Vital Signs - 24 hr 01/18/22 14:16 01/18/22 15:09 01/18/22 15:11 Temperature 37.0 C Pulse Rate 74 73 82 Respiratory Rate 16 Blood Pressure 116/68 116/64 110/57 L Pulse Oximetry 100 Oxygen Delivery 01/18/22 15:14 01/18/22 20:00 01/18/22 20:30 Temperature 36.8 C 36.8 C Pulse Rate 95 87 82 Respiratory Rate 18 18 Blood Pressure 118/58 L 130/59 L 122/62 Pulse Oximetry 99 98 Oxygen Delivery 01/18/22 20:33 01/18/22 20:36 01/18/22 20:00 Temperature 37.0 C 36.8 C Pulse Rate 90 110 H 110 H Respiratory Rate 18 18 18 Blood Pressure 148/54 H 147/64 H Pulse Oximetry 100 99 99 Oxygen Delivery Room Air 01/19/22 05:53 Temperature 36.6 C Pulse Rate 79 Respiratory Rate 17 Blood Pressure 110/51 L Pulse Oximetry 96 Oxygen Delivery Intake/Output Intake/Output: Intake & Output 01/16/22 01/17/22 01/18/22 01/19/22 23:59 23:59 23:59 23:59 Intake Total 3440 730 731 687 Output Total 1250 375 600 300 Balance 2190 355 131 387 Meds/Results Medications: Active Medications Generic Name Dose Route Start Last Admin Trade Name Freq PRN Reason Stop Dose Admin Acetaminophen 650 mg 01/14/22 15:4
--- NOTE | 2022-01-19 13:23 | PCOTNOTE ---
Attempted to see patient this pm, however patient was with physical therapy at this time.
[2022-01-19 13:27] VITALS: O2SAT 97
[2022-01-19 13:43] VITALS: BP 102/89; BP 123/64; BP 145/81; PULSE 83; RESP 18; TEMP 36.9; O2SAT 97
--- NOTE | 2022-01-19 13:45 | PCNFU ---
Nutrition Follow-Up Complete: Inadequate oral intake related to decreased appetite as evidenced by unintentional weight loss of 50lbs within last 6 months. Goal: Eating 75% or more of meals with Ensure Compact BID ([id number], Pro 9gm each). Pt. is making progress towards goal. Continue with current goal. Pt. current nutrition is Regular Nutrition recommendation: Continue encouraging intake of diet and dietary supplements Last recorded weight is 70 kg, stable. Bowel Motility: +BM reported 01/18 - per MD report, Miralax given 01/17 Labs Reviewed: Hgb 11.9, Hct 35.4, Cr 0.60 Meds Noted: Aspirin, Lipitor, Zithromax, Rocephin, Pepcid Skin: left hip incision Additional Notes: Pt. diet was advanced from full liquid diet to regular diet over the weekend. Pt. appears to be tolerating current diet orders and intake appears to be improving. Reported intake is 50%, 100%, 10%, 5%, and 90% x2. Pt. is receiving dietary supplements of Ensure Compact BID providing an additional 220kcal and 9g of protein per shake. Agree with diet orders at this time. Will continue to follow. Monitor changes in weight, meal consumption %, and labs every 5 days.
--- NOTE | 2022-01-19 15:35 | P.PNIM_ITS ---
Progress Note: A&P Assessment and Plan (1) Closed displaced fracture of left femoral neck: Code(s): S72.002A - Fracture of unspecified part of neck of left femur, initial encounter for closed fracture Status: Acute Assessment and Plan: Sustained in a fall related to a near syncopal episode. * Management per Orthopedic surgery * Status post hip hemiarthroplasty. POD #4. * Supportive care. Analgesics available as needed * Appreciate PT/OT eval. He will need continued therapy at SNF on discharge (2) Near syncope: Code(s): R55 - Syncope and collapse Status: Acute Assessment and Plan: 01/14 patient had episode of near-syncope while standing up from sitting position * Patient found to be orthostatic. Maged hose applied and he was rehydrated with IV fluids. Subsequent orthostatic vital signs negative. * Continue fall precautions * No evidence of dysrhythmias on telemetry * Echocardiogram revealed EF 65-70% with basal inferior wall hypokinesis and normal diastolic function * Evidence of carotid artery disease, this is likely etiology. * Head CT showed no acute findings (3) Carotid artery disease: Code(s): I77.9 - Disorder of arteries and arterioles, unspecified Status: Acute Assessment and Plan: Carotid Doppler showed total occlusion of the right internal carotid artery and right common carotid artery with no visible flow in the right vertebral artery and <50% stenosis of the left internal carotid artery * Follow-up head/neck CTA also showed total occlusion of the right common, right internal carotid, and right vertebral artery and 40% stenosis of the left internal carotid with moderate stenosis of the left vertebral artery * MRI with no evidence of acute stroke * He will follow-up as an outpatient with Interventional Neurology at [facility]. Records have been sent for review and patient will be contacted for follow-up * Continue aspirin and atorvastatin (4) Community acquired pneumonia: Code(s): J18.9 - Pneumonia, unspecified organism Status: Acute Assessment and Plan: CXR on presentation showed bilateral infiltrates * Patient complained of productive cough and had mild leukocytosis * COVID-19 negative. Influenza negative * Completed 5 days of azithromycin. * Continue ceftriaxone #6 * Supportive care. Pt symptomatically improved. (5) Hypertension: Code(s): I10 - Essential (primary) hypertension Status: Acute Assessment and Plan: Blood pressures were reviewed and were elevated prior to surgery, now running on the lower end. * Lisinopril and amlodipine discontinued * Allow for permissive hypertension (6) Hypothyroidism: Code(s): E03.9 - Hypothyroidism, unspecified Status: Acute Assessment and Plan: TSH is within normal limits * Continue levothyroxine (7) Tobacco abuse: Code(s): Z72.0 - Tobacco use Status: Acute Assessment and Plan: Patient smokes 2 packs per day * Smoking cessation is imperative, especially in light of his carotid disease * Educated regarding smoking cessation for 6 minutes. Patient is motivated to quit smoking * Declined nicotine patch during admission Plan Awaiting SNF acceptance. Plan for discharge following approval. Subjective Date/time seen: 01/19/22 15:35 Interval history: Date of service: 01/19/2022 Kemal Thomas is a 71-year-old male with a history of CVA with residual left- sided weakness, CAD, hepatic steatosis, hyperlipidemia, hypertension
--- NOTE | 2022-01-19 15:35 | PM.IMPN ---
Progress Note: A&P Assessment and Plan (1) Closed displaced fracture of left femoral neck: Code(s): S72.002A - Fracture of unspecified part of neck of left femur, initial encounter for closed fracture Status: Acute Assessment and Plan: Sustained in a fall related to a near syncopal episode. Management per Orthopedic surgery Status post hip hemiarthroplasty. POD #4. Supportive care. Analgesics available as needed Appreciate PT/OT eval. He will need continued therapy at SNF on discharge (2) Near syncope: Code(s): R55 - Syncope and collapse Status: Acute Assessment and Plan: / patient had episode of near-syncope while standing up from sitting position Patient found to be orthostatic. Maged hose applied and he was rehydrated with IV fluids. Subsequent orthostatic vital signs negative. Continue fall precautions No evidence of dysrhythmias on telemetry Echocardiogram revealed EF 65-70% with basal inferior wall hypokinesis and normal diastolic function Evidence of carotid artery disease, this is likely etiology. Head CT showed no acute findings (3) Carotid artery disease: Code(s): I77.9 - Disorder of arteries and arterioles, unspecified Status: Acute Assessment and Plan: Carotid Doppler showed total occlusion of the right internal carotid artery and right common carotid artery with no visible flow in the right vertebral artery and <50% stenosis of the left internal carotid artery Follow-up head/neck CTA also showed total occlusion of the right common, right internal carotid, and right vertebral artery and 40% stenosis of the left internal carotid with moderate stenosis of the left vertebral artery MRI with no evidence of acute stroke He will follow-up as an outpatient with Interventional Neurology at [facility]. Records have been sent for review and patient will be contacted for follow-up Continue aspirin and atorvastatin (4) Community acquired pneumonia: Code(s): J18.9 - Pneumonia, unspecified organism Status: Acute Assessment and Plan: CXR on presentation showed bilateral infiltrates Patient complained of productive cough and had mild leukocytosis COVID-19 negative. Influenza negative Completed 5 days of azithromycin. Continue ceftriaxone #6 Supportive care. Pt symptomatically improved. (5) Hypertension: Code(s): I10 - Essential (primary) hypertension Status: Acute Assessment and Plan: Blood pressures were reviewed and were elevated prior to surgery, now running on the lower end. Lisinopril and amlodipine discontinued Allow for permissive hypertension (6) Hypothyroidism: Code(s): E03.9 - Hypothyroidism, unspecified Status: Acute Assessment and Plan: TSH is within normal limits Continue levothyroxine (7) Tobacco abuse: Code(s): Z72.0 - Tobacco use Status: Acute Assessment and Plan: Patient smokes 2 packs per day Smoking cessation is imperative, especially in light of his carotid disease Educated regarding smoking cessation for 6 minutes. Patient is motivated to quit smoking Declined nicotine patch during admission Plan Awaiting SNF acceptance. Plan for discharge following approval. Subjective Date/time seen: 01/19/22 15:35 Interval history: Date of service: 01/19/2022 Kemal Thomas is a 71-year-old male with a history of CVA with residual left-sided weakness, CAD, hepatic steatosis, hyperlipidemia, hypertension, hypothyroidism, and tobacco abuse who is seen in follow-up for left hip fracture and carotid artery disease. He feels well today. He has no pain at this time. He was ambulating in the halls earlier today with therapy. He states with movement his pain can get up to 6/10. Overall he feels that he is doing very well. He denies dizziness, lightheadedness, presyncope. Denies feeling weak. No nausea, vomiting, fever, or chills. No chest pain
[2022-01-19 21:32] VITALS: BP 118/56; PULSE 72; RESP 18; TEMP 37.1; O2SAT 96
[2022-01-20 05:37] VITALS: BP 114/59; PULSE 70; RESP 17; TEMP 36.9; O2SAT 98
[2022-01-20 06:27] LABS: Hematocrit 34.6 % (42.0-52.0); Hemoglobin 11.8 g/dL (14.0-18.0); Mean Corpuscular HGB Conc 34.1 g/dl (32-36); Mean Corpuscular Hemoglobin 31.6 pg (26-34); Mean Corpuscular Volume 92.5 fl (80-100); Mean Platelet Volume 10.7 fl (7.4-10.4); Platelet Count Result 156 k/mm3 (150-375); Red Blood Count 3.74 M/mm3 (4.6-6.20); White Blood Count 9.7 K/mm3 (4.5-10.0)
[2022-01-20 06:38] LABS: Anion Gap 4 mmol/L (8-16); Blood Urea Nitrogen 15 mg/dL (9-20); Calcium 8.6 mg/dL (8.4-10.2); Carbon Dioxide 28 mmol/L (22-30); Chloride 105 mmol/L (98-107); Estimated CRCL calculation 79 ml/min; Estimated Glomerular Filt Rate > 60; Glucose 99 mg/dL (65-110); Potassium 3.7 mmol/L (3.4-5.0); Sodium 137 mmol/L (137-145)
[2022-01-20 08:00] VITALS: PULSE 79; RESP 17; O2SAT 99
[2022-01-20] MEDS: SENNA/DOCUSATE SODIUM TABLET 2 TAB PO (08:39)
[2022-01-20] MEDS: ATORVASTATIN 40 MG TABLET PO (08:40)
[2022-01-20] MEDS: ASPIRIN 325 MG ENTERIC TABLET 650 MG PO (08:40)
[2022-01-20] MEDS: FAMOTIDINE 20 MG TABLET PO (08:40)
--- NOTE | 2022-01-20 09:04 | PM.PNORT ---
Progress Note: A&P Assessment and Plan (1) S/P hip hemiarthroplasty: Code(s): Z96.649 - Presence of unspecified artificial hip joint Status: Acute Assessment and Plan: POD #5: L Hip Hemiarthroplasty Continue PT/OT. WBAT. Walker. HIGH FALL RISK. Continue pain control. Ice Hip. Protect skin. DVT prophylaxis with Aspirin. SCDs. Incentive Spirometry. Dressing changed to Mepilex. Dispo: SNF for rehab pending medical clearance. Subjective Subjective Date/Time Seen: 01/20/22 09:04 Post Op day: 5 (Left hip bipolar) Principal diagnosis: Left hip fracture Interval history: Patient doing well. Pain well controlled. Awaiting placement. Review of Systems Review of Systems: All systems reviewed & are unremarkable except as noted in HPI and below Exam Const: General: comfortable and no acute distress Orientation/consciousness: patient oriented x3 Limitations: no limitations Resp: Effort & Inspection: normal respiratory effort Cardio: Rate: regular rate Rhythm: regular rhythm GI: Inspection: non-distended Skin: General skin exam: normal color Wounds: wounds noted (incision left hip C/D/I ) Neuro: General: patient oriented x3 Extrem: Left lower extremity: hip/thigh Details: tenderness Location: of the hip Location: laterally and anteriorly, swelling (thigh soft ) Location: of the hip (lateral. ), abnormal ROM (limitations with internal/external rotation and flexion/extension due to recent surgical intervention ) and other (Dressing changed, incision clean and dry), knee Details: normal to inspection and normal ROM; no tenderness and no swelling, lower leg (Negative Amber's Sign ) Details: no edema, ankle (+ankle dorsiflexion/plantarflexion ) Details: normal to inspection, no edema and normal ROM; no tenderness, no swelling and no warmth and foot Details: normal capillary refill, toes with normal ROM, vascular exam Details: dorsalis pedis pulse present and motor-sensory exam light-touch normal in all toes; no tenderness, no ecchymosis and no crepitus Psych: Mental Status: mental status grossly normal Affect: normal affect Objective Data Vital Signs Vital Signs: Vital Signs - 24 hr 01/19/22 13:27 01/19/22 13:43 01/19/22 13:43 Temperature 36.9 C Pulse Rate 83 Respiratory Rate 18 Blood Pressure 102/89 123/64 Pulse Oximetry 97 97 Oxygen Delivery Room Air 01/19/22 13:43 01/19/22 21:32 01/20/22 05:37 Temperature 37.1 C 36.9 C Pulse Rate 72 70 Respiratory Rate 18 17 Blood Pressure 145/81 H 118/56 L 114/59 L Pulse Oximetry 96 98 Oxygen Delivery Intake/Output Intake/Output: Intake & Output 01/17/22 01/18/22 01/19/22 01/20/22 23:59 23:59 23:59 23:59 Intake Total 679 033 0334 750 Output Total 357 366 4529 600 Balance 355 131 177 150 Meds/Results Medications: Active Medications Generic Name Dose Route Start Last Admin Trade Name Freq PRN Reason Stop Dose Admin Acetaminophen 650 mg 01/14/22 15:42 Acetaminophen 325 Mg Tablet PO Q4H PRN Mild Pain (1-3) or Fever Hydrocodone Bitart/Acetaminophen 1 tab 01/15/22 16:44 01/18/22 10:17 Hydrocodone/Acetaminophen (*Crx) 7.5-325 Mg Tablet PO 1 tab Q3H PRN Administration Pain Rated 4-6 Albuterol 2 puff 01/15/22 16:44 Albuterol Sulfate (*Sp) Aerosol 1 Puff INHALATION QID PRN shortness of breath or wheezing Aspirin 650 mg 01/16/22 09:00 01/20/22 08:40 Aspirin 325 Mg Enteric Tablet PO 650 mg DAILY AJAY Administration Atorvastatin Calcium 40 mg 01/17/22 09:00 01/20/22 08:40 Atorvastatin 40 Mg Tablet PO 40 mg DAILY AJAY Administration Bisacodyl 10 mg 01/15/22 16:44 Bisacodyl 10 Mg Suppository RECTAL DAILY PRN Constipation Diazepam 5 mg 01/15/22 16:44 01/16/22 17:56 Diazepam (*Crx) 5 Mg Tablet PO 5 mg Q8H PRN Administration Muscle Spasm Famotidine 20 mg 01/15/22 21:00 01/20/22 08:40 Famotidine 20 Mg Tablet
[2022-01-20 11:57] LABS: EDCOVIDSCREEN Negative (Negative)
--- NOTE | 2022-01-20 13:40 | P.DS_ITS ---
DS: Admitting Diagnosis Discharge Date 01/20/2022 Admitting Diagnosis Left hip fracture DS: Discharge Diagnosis Discharge Diagnosis (1) Closed displaced fracture of left femoral neck: Code(s): S72.002A - Fracture of unspecified part of neck of left femur, initial encounter for closed fracture Status: Acute Assessment and Plan: Sustained in a fall related to a near syncopal episode. * Management per Orthopedic surgery * Underwent surgical repair on 01/15/[address] Rodriguez. * Aspirin 325 mg daily per Orthopedic surgery x30 days for DVT prophylaxis * Analgesics available as needed * Participated in PT/OT. Will continue therapy at SNF * Follow-up with orthopedic surgery scheduled for 02/18/2022 (2) Near syncope: Code(s): R55 - Syncope and collapse Status: Acute Assessment and Plan: 01/14 patient had episode of near-syncope while standing up from sitting position * Patient found to be orthostatic. Maged hose applied and he was rehydrated with IV fluids. Subsequent orthostatic vital signs negative. * Fall precautions implemented * No evidence of dysrhythmias on telemetry * Echocardiogram revealed EF 65-70% with basal inferior wall hypokinesis and normal diastolic function * Evidence of carotid artery disease, this is likely etiology. See below * Head CT showed no acute findings (3) Carotid artery disease: Code(s): I77.9 - Disorder of arteries and arterioles, unspecified Status: Acute Assessment and Plan: Carotid Doppler showed total occlusion of the right internal carotid artery and right common carotid artery with no visible flow in the right vertebral artery and <50% stenosis of the left internal carotid artery * Follow-up head/neck CTA also showed total occlusion of the right common, right internal carotid, and right vertebral artery and 40% stenosis of the left in ternal carotid with moderate stenosis of the left vertebral artery * MRI with no evidence of acute stroke * He will follow-up as an outpatient with Interventional Neurology at [facility]. Records have been sent for review and patient will be contacted for follow-up. Disc was provided with CTA and MRI results to bring to appointment * Started on aspirin and atorvastatin He will need to remain on aspirin 81 mg daily when he has completed aspirin 325 mg daily for DVT prophylaxis. (4) Community acquired pneumonia: Code(s): J18.9 - Pneumonia, unspecified organism Status: Acute Assessment and Plan: CXR on presentation showed bilateral infiltrates * Patient complained of productive cough and had mild leukocytosis * COVID-19 negative. Influenza negative * Completed appropriate antibiotic therapy with ceftriaxone and azithromycin (5) Hypertension: Code(s): I10 - Essential (primary) hypertension Status: Acute Assessment and Plan: Blood pressures were reviewed and were elevated prior to surgery but were in the low-normal range postoperatively * Lisinopril and amlodipine discontinued * Avoid tight blood pressure control in the setting of carotid artery disease (6) Hypothyroidism: Code(s): E03.9 - Hypothyroidism, unspecified Status: Acute Assessment and Plan: TSH is within normal limits * Continue levothyroxine (7) Tobacco abuse: Code(s): Z72.0 - Tobacco use Status: Acute Assessment and Plan: Patient smokes 2 packs per day * Smoking cessation is imperative, especially in light of his carotid disease * Educated regarding smoking cessation for 6 minutes. Patient is mo
--- NOTE | 2022-01-20 13:40 | PM.DS ---
DS: Admitting Diagnosis Discharge Date 01/20/2022 Admitting Diagnosis Left hip fracture DS: Discharge Diagnosis Discharge Diagnosis (1) Closed displaced fracture of left femoral neck: Code(s): S72.002A - Fracture of unspecified part of neck of left femur, initial encounter for closed fracture Status: Acute Assessment and Plan: Sustained in a fall related to a near syncopal episode. Management per Orthopedic surgery Underwent surgical repair on 01/15/[address] Rodriguez. Aspirin 325 mg daily per Orthopedic surgery x30 days for DVT prophylaxis Analgesics available as needed Participated in PT/OT. Will continue therapy at SNF Follow-up with orthopedic surgery scheduled for 02/18/2022 (2) Near syncope: Code(s): R55 - Syncope and collapse Status: Acute Assessment and Plan: 01/14 patient had episode of near-syncope while standing up from sitting position Patient found to be orthostatic. Maged hose applied and he was rehydrated with IV fluids. Subsequent orthostatic vital signs negative. Fall precautions implemented No evidence of dysrhythmias on telemetry Echocardiogram revealed EF 65-70% with basal inferior wall hypokinesis and normal diastolic function Evidence of carotid artery disease, this is likely etiology. See below Head CT showed no acute findings (3) Carotid artery disease: Code(s): I77.9 - Disorder of arteries and arterioles, unspecified Status: Acute Assessment and Plan: Carotid Doppler showed total occlusion of the right internal carotid artery and right common carotid artery with no visible flow in the right vertebral artery and <50% stenosis of the left internal carotid artery Follow-up head/neck CTA also showed total occlusion of the right common, right internal carotid, and right vertebral artery and 40% stenosis of the left internal carotid with moderate stenosis of the left vertebral artery MRI with no evidence of acute stroke He will follow-up as an outpatient with Interventional Neurology at [facility]. Records have been sent for review and patient will be contacted for follow-up. Disc was provided with CTA and MRI results to bring to appointment Started on aspirin and atorvastatin He will need to remain on aspirin 81 mg daily when he has completed aspirin 325 mg daily for DVT prophylaxis. (4) Community acquired pneumonia: Code(s): J18.9 - Pneumonia, unspecified organism Status: Acute Assessment and Plan: CXR on presentation showed bilateral infiltrates Patient complained of productive cough and had mild leukocytosis COVID-19 negative. Influenza negative Completed appropriate antibiotic therapy with ceftriaxone and azithromycin (5) Hypertension: Code(s): I10 - Essential (primary) hypertension Status: Acute Assessment and Plan: Blood pressures were reviewed and were elevated prior to surgery but were in the low-normal range postoperatively Lisinopril and amlodipine discontinued Avoid tight blood pressure control in the setting of carotid artery disease (6) Hypothyroidism: Code(s): E03.9 - Hypothyroidism, unspecified Status: Acute Assessment and Plan: TSH is within normal limits Continue levothyroxine (7) Tobacco abuse: Code(s): Z72.0 - Tobacco use Status: Acute Assessment and Plan: Patient smokes 2 packs per day Smoking cessation is imperative, especially in light of his carotid disease Educated regarding smoking cessation for 6 minutes. Patient is motivated to quit smoking Declined nicotine patch DS: Summary Hospital Course Hospital Course: Date of admission: 01/14/2022 Date of discharge: 01/20/2022 Kemal Thomas is a 71-year-old male with a history of CVA with residual left-sided weakness, CAD, hepatic steatosis, hyperlipidemia, hypertension, hypothyroidism, and tobacco abuse who presented to the emergency department on 01/14/2022 S after a
[2022-01-20 13:54] VITALS: BP 135/82; PULSE 79; RESP 17; TEMP 37.1; O2SAT 99
== END 2022-01-20 19:30 | disposition home or self-care (01) | DRG 521 ==
LOC: ANHED 15:41 → ANH3MEDSUR 16:25
PROVIDERS: General Practice; Orthopaedic Surgery; Physician Assistant; Admitting Provider Family Medicine; Emergency Provider Family Medicine; PCP Internal Medicine; Visit Provider Physician Assistant
PROC: 0SRS01Z Replacement of Left Hip Joint, Femoral Surface with Metal Synthetic Substitute, Open Approach (ICD-10-PCS; CPT 27125; principal; 2022-01-15 13:30)
DX: S72.002A Fracture of unspecified part of neck of left femur, initial encounter for closed fracture (principal); J18.9 Pneumonia, unspecified organism; I69.954 Hemiplegia and hemiparesis following unspecified cerebrovascular disease affecting left non-dominant side; Z20.822 Contact with and (suspected) exposure to COVID-19; W19.XXXA Unspecified fall, initial encounter; I10 Essential (primary) hypertension; I25.10 Atherosclerotic heart disease of native coronary artery without angina pectoris; E03.9 Hypothyroidism, unspecified; E78.00 Pure hypercholesterolemia, unspecified; F17.210 Nicotine dependence, cigarettes, uncomplicated; Z79.82 Long term (current) use of aspirin; Z79.899 Other long term (current) drug therapy; R55 Syncope and collapse; I65.23 Occlusion and stenosis of bilateral carotid arteries
CPT/HCPCS: 36415; 70450; 70496; 70498; 70551; 71045; 73502; 80048; 80053; 83735; 83880; 84145; 84443; 85025; 85027; 85055; 86140; 87426; 87804; 93005; 93306; 93880; 97110; 97116; 97161; 97165; 97530; 97535; 99285; A9270; C1776; C9803; J0330; J0456; J0690; J0696; J1100; J1170; J1885; J2270; J2370; J2405; J2704; J2710; J3010; J3475; J3480; J7030; J7040; J7120; Q9967; U0003; U0005

== ENCOUNTER 2022-04-09 09:09 | Observation (INO) | payer MEDICARE, MEDICAID, SELFPAY ==
[2022-04-09] VITALS (8 sets, daily range): BP systolic 111–165; BP diastolic 63–91; PULSE 69–83; RESP 16–23; TEMP 36.2–36.4; O2SAT 91–100; BMI 18.6
--- NOTE | ~2022-04-09 | XR_ITS ---
EXAMINATION: XR hip LT min 2V INDICATION: Left hip pain TECHNIQUE: Two views of the left hip are obtained. COMPARISON: 01/15/2022 FINDINGS: A bipolar left hip hemiarthroplasty is again noted. There is no fracture. Calcified atheros clerosis is noted. IMPRESSION: 1. No acute osseous abnormality. Reviewed, dictated and finalized at location A.
--- NOTE | ~2022-04-09 | XR_ITS ---
XR chest 2V DATE: 04/09/2022 09:35 INDICATION: Weakness. Fall. TECHNIQUE: AP and lateral views COMPARISON: 01/14/2022 portable AP chest FINDINGS: Heart size is within normal range. Bilateral hyperinflation. No pulmonary infiltrate or con solidation, pleural effusion or pulmonary vascular congestion or pneumothorax is detected. Osteopenia. Old healed bilateral rib fractures. IMPRESSION: Bilateral hyperinflation; no active cardiopulmonary disease Reviewed, dictated and finalized at location B.
--- NOTE | ~2022-04-09 | XR_ITS ---
EXAMINATION: XR chest 1V portable DATE: 04/10/2022 08:52 INDICATION: Shortness of breath with new oxygen requirement. TECHNIQUE: A single frontal view of the chest was obtained on 2 radiographs. COMPARISON: Chest 2 views 04/09/2022, CT abdomen and pelvis 01/21/2018 FINDINGS: There are airspace opacities in left lower lung zone. No pleural effusion or pneumothorax. The heart size is normal. Surgical clips overlie the right posterior costophrenic angle. There are ol d healed left rib fractures. IMPRESSION: 1. Mild airspace opacities in left lower lung zone, consistent with atelectasis/scarring versus pneum onia. Reviewed, dictated and finalized at location A. IMPRESSION: 1. Mild airspace opacities in left lower lung zone, consistent with atelectasis /scarring versus pneumonia.
--- NOTE | ~2022-04-09 | CT_ITS ---
EXAMINATION: CT brain wo con INDICATION: Head injury COMPARISON: 01/16/2022 TECHNIQUE: Standard unenhanced head CT. The dose-length product (DLP) was 605.33 mGy-cm. The mA was a djusted according to patient size. Iterative reconstruction technique was employed. FINDINGS: There is no acute intraparenchymal hemorrhage. No evidence of mass lesion. No evidence of a cute infarction. There are areas of prior infarction in the right basal ganglia and right frontoparie jona region. There is a left parietal scalp hematoma. There is mild periventricular and subcortical hy podensity probably related to small vessel ischemic disease. There is mild prominence of the sulci an d ventricles related to cerebral atrophy. Intracranial calcified cerebral atherosclerosis is noted. T here are no extra-axial collections. There is no mass effect or midline shift. The orbits are unremar kable. The visualized sinuses and mastoid air cells are well aerated. IMPRESSION: 1. Left parietal scalp hematoma and areas of prior infarction without acute intracranial abnormality. 2. Age related findings. Reviewed, dictated and finalized at location A. IMPRESSION: 1. Left parietal scalp hematoma and areas of prior infarction without acute int racranial abnormality. 2. Age related findings.
--- NOTE | 2022-04-09 08:59 | ECG_ITS ---
Measurements Intervals [place] Rate: 79 P: 81 ME: 152 QRS: 52 QRSD: 82 T: 62 QT: 407 QTc: 469 Interpretive Statements SINUS RHYTHM ATRIAL AND VENTRICULAR PREMATURE COMPLEXES BASELINE ARTIFACT- I, III, AVR, AVL, AVF, V1-V2 BORDERLINE ECG COMPARISON TO PRIOR ECG 03-16-22 13:02 NO SIGNIFICANT CHANGE Electronically Signed On 04-09-2022 11:54:31 CDT by Sancho Live D.O.
[2022-04-09 09:05] LABS: Glucose Point of Care 98 mg/dl (65-105)
[2022-04-09 09:09] LABS: Basophils Percent Auto 0.3 % (0.2-1.2); Hematocrit 56.5 % (42.0-52.0); Immature Granulocyte Absolute 0.04 K/mm3 (0.00-0.031); Immature Granulocyte Percent A 0.5 % (0-0.5); Lymphocytes Absolute Auto 0.74 K/mm3 (0.9-3.2); Lymphocytes Percent Auto 9.7 % (18.3-44.2); Mean Corpuscular HGB Conc 33.6 g/dl (32-36); Mean Corpuscular Hemoglobin 30.4 pg (26-34); Mean Corpuscular Volume 90.5 fl (80-100); Mean Platelet Volume 10.7 fl (7.4-10.4); Monocytes Absolute Auto 0.6 K/mm3 (0.1-0.6); Monocytes Percent Auto 8.4 % (2.6-8.5); Neutrophils Absolute Auto 6.2 K/mm3 (1.3-6.7); Neutrophils Percent Auto 81.1 % (45.5-73.1); Platelet Count Result 178 k/mm3 (150-375); Red Blood Count 6.24 M/mm3 (4.6-6.20); Red Cell Distribution Width 14.4 % (11.5-14.5); White Blood Count 7.7 K/mm3 (4.5-10.0)
--- NOTE | 2022-04-09 09:14 | ED.WEAKNESS ---
HPI - Weakness General Chief complaint: Weakness <MERYL Salgado Last Filed: 04/09/22 18:25> Stated complaint: Weakness <MERYL Salgado Last Filed: 04/09/22 18:25> History of Present Illness HPI Narrative: Patient is a 71-year-old male with history of CVA with residual left-sided weakness, hypertension, COPD, hypothyroidism here for evaluation of weakness. Patient states that over the past week, he has felt generally weak and unable to take care of himself at home. He believes this weakness has led to several falls over the past week, several times he has been unable to get off of the floor by himself. He states he lives at home with his girlfriend who is mentally slow , and does not help him when he falls, so he has spent up to 3 days on the ground without meals or water. He also notes that he has been having diarrhea over the past several days and has been soiling himself. He reports left hip pain. Denies head injury no falls, pain, shortness of breath, fevers, chills, abdominal pain, nausea or vomiting. <MERYL Salgado Last Filed: 04/09/22 18:25> Related Data Home medications: Home Medications Medication Instructions Recorded Confirmed No Home Medications 04/09/22 04/09/22 <MERYL Salgado Last Filed: 04/09/22 18:25> Allergies/Adverse reactions: Allergies Allergy/AdvReac Type Severity Reaction Status Date / Time No Known Allergies Allergy Unknown Verified 01/14/22 18:40 <MERYL Salgado Last Filed: 04/09/22 18:25> Review of Systems Review of Systems: Gen: Reports weakness. Denies fevers or chills Eyes: Denies eye pain or visual change ENT: Denies congestion Respiratory: Denies shortness of breath or cough CV: Denies chest pain or palpitations GI: Reports diarrhea. Denies abdominal pain nausea, emesis : denies burning, urgency, frequency or hematuria Musculoskeletal: Reports left hip pain. Denies back pain or muscle pain Neuro: Denies numbness, tingling, weakness or focal weakness Skin: Denies rash Except as documented, all other systems reviewed and negative <Maggie Hernandez PA-C - Last Filed: 04/09/22 18:25> [facility] Past Medical History Medical History: Medical History (Updated 04/09/22 @ 19:27 by Camille Valencia MD) Cerebrovascular accident Residual left-sided weakness. Community acquired pneumonia Coronary artery disease Nonobstructive coronary artery disease heard in February 2011. Hepatic steatosis Hypercholesterolemia Hypertension Hypothyroidism Tobacco abuse <Maggie Hernandez PA-C - Last Filed: 04/09/22 18:25> Surgical History Surgical History: Surgical History History of cardiac catheterization History of right inguinal hernia repair History of right nephrectomy Removed as a child for recurrent infections. S/P hip hemiarthroplasty <Maggie Hernandez PA-C - Last Filed: 04/09/22 18:25> Family History Family History: Family History Father Heat stroke Other Diabetes mellitus Heart disease Hypertension <Maggie Hernandez PA-C - Last Filed: 04/09/22 18:25> Social History Social History: Social History (Updated 04/09/22 @ 14:10 by Mikayla Gardner NP) Social History: Surrogate decision maker: Anastacio TaylorKolton, friend. He said he has quit smoking it was noted that he was still smoking this past January. He is retired from [employer]. He lives with a significant other and has no children. Code status: Full code. Smoking packs per day: 2 Smoking cigarettes per day: 40.0 Years smoked: 44 Smoking pack-years: 88.00 Smoking status: Current every day smoker Tobacco type: cigarettes Alcohol intake: never Substance use: former Substance use type: marijuana Spiritual care concerns: No <Maggie Burroughs
[2022-04-09 09:21] LABS: Alanine Aminotransferase 30 U/L (6-50); Albumin Level 5.1 g/dL (3.5-5.1); Alkaline Phosphatase 71 U/L (38-126); Anion Gap 19 mmol/L (8-16); Aspartate Amino Transferase 83 U/L (17-59); Bilirubin,Total 0.8 mg/dL (0.2-1.3); Blood Urea Nitrogen 36 mg/dL (9-20); Calcium 9.8 mg/dL (8.4-10.2); Carbon Dioxide 19 mmol/L (22-30); Chloride 98 mmol/L (98-107); Estimated CRCL calculation 62 ml/min; Estimated Glomerular Filt Rate > 60; Glucose 118 mg/dL (65-110); Sodium 136 mmol/L (137-145)
[2022-04-09 09:22] LABS: Creatine Kinase 1484 U/L (55-170); Lactic Acid Reflex 2.2 mmol/L (0.7-2.0)
[2022-04-09 09:24] LABS: Partial Thromboplastin Time 32.5 SECONDS (22.3-36.8); Prothrombin Time 12.6 Seconds (11.1-14.7)
[2022-04-09] MEDS: SODIUM CHLORIDE 0.9% IV 1,000 ML 999 ML IV CONT ×2 (09:45→10:39)
[2022-04-09 11:14] LABS: Appearance Urine Clear (Clear); Bilirubin Urine 1+ (Negative); Blood Urine 3+ (Negative); Color Urine Yellow (Yellow); Glucose Urine UA Negative (Negative); Ketones Urine 3+ mg/dL (Negative); Leukocyte Esterase Ur Negative LEU/UL (Negative); Nitrate Urine Negative (Negative); Protein Urine 3+ mg/dL (Negative); Specific Grav Ur >= 1.030 (1.001-1.035); Urobilinogen Urine 0.2 mg/dL (<2.0); pH Urine 5.5 (5.0-9.0)
[2022-04-09 11:21] LABS: Bacteria Urine Trace /hpf; RBC Urine 0-2 /hpf (0-2); Squamous Epithelial Cell Urine Rare /hpf (Few); WBC Urine 0-3 /hpf
[2022-04-09 11:31] LABS: Add Urine Microscopic? YES
[2022-04-09 12:06] LABS: Reflex Lactic Acid Yes or No Add Lactic
[2022-04-09 12:09] LABS: Fractional Inspired Oxygen 21 %; HCO3 VBG 17.8 mEq/l (24.0-30.0); PCO2 VBG 39.1 mmHg (42.0-48.0); PO2 VBG 33.3 mmHg (35.0-45.0); pH VBG 7.275 (7.300-7.400)
--- NOTE | 2022-04-09 12:43 | PM.IMHP ---
H&P: HPI History of Present Illness Date/Time: 04/09/22 12:43 Chief Complaint: Weakness Narrative: This is a 71-year-old male patient who has a history of CVA with left-sided weakness, hypertension, COPD and hypothyroidism. The patient came to the emergency room with complaints of weakness. The patient stated that he has been generally weak over the last week. Patient has had several falls over the last week. He is typically able to take care of himself until this week. The patient stated that he fell on the floor 3 days ago and not could not get up off the floor. He stated that his girlfriend that lives with him is mentally slow and does not help him. He has stayed on the floor for 3 days without any meals or water. The patient was unable to get up to use the restroom and stated that he went in his pants. H&H is 19.0 and 56.5. PH is 7.275 CO2 is 39.1. Patient is awake and talkative. Total creatinine kinase 1484. IV fluids have been continued. The patient is being admitted to observation status on the date of service of 04/09/2022. Review of Systems Review of Systems: See HPI All systems reviewed & are unremarkable except as noted in HPI and below Constitutional: Constitutional: Reports as per HPI and Reports no additional constitutional complaints Eyes: Eyes: Reports as per HPI and Reports no additional eye complaints ENT: Reports system reviewed and no additional complaints, except as documented and Reports Normal hearing present Cardiovascular: Cardiovascular: Reports no additional cardiovascular complaints Respiratory: Respiratory: Reports no additional respiratory complaints and Reports no additional respiratory complaints Gastrointestinal: Gastrointestinal: Reports as per HPI and Reports no additional gastrointestinal complaints Musculoskeletal: Musculoskeletal: Reports no additional musculoskeletal complaints Integumentary/Breasts: Skin/Breast: Reports system reviewed and no additional complaints, except as docu and Reports as per HPI Neurologic: Reports system reviewed and no additional complaints, except as documented, Reports as per HPI and Reports Normal hearing present Psychiatric: Psychiatric: Reports no additional psychiatric complaints and Reports as per HPI Endocrine: Endocrine: Reports no additional endocrine complaints Hematologic/Lymphatic: Hematologic/Lymphatic: Reports no additional hematologic/lymphatic complaints Allergic/Immunologic: Allergic/Immunologic: Reports no additional allergic/immunologic complaints [facility] Past Medical History Medical History (Updated 04/09/22 @ 14:19 by Mikayla Gardner NP) Cerebrovascular accident Residual left-sided weakness. Community acquired pneumonia Coronary artery disease Nonobstructive coronary artery disease heard in February 2011. Hepatic steatosis Hypercholesterolemia Hypertension Hypothyroidism Tobacco abuse Surgical History Surgical History History of cardiac catheterization History of right inguinal hernia repair History of right nephrectomy Removed as a child for recurrent infections. S/P hip hemiarthroplasty Family History Family History Father Heat stroke Other Diabetes mellitus Heart disease Hypertension Social History Social History (Updated 04/09/22 @ 14:10 by Mikayla Gardner NP) Social History: Surrogate decision maker: Anastacio TaylorKolton, friend. He said he has quit smoking it was noted that he was still smoking this past January. He is retired from [employer]. He lives with a significant other and has no children. Code status: Full code. Smoking packs per day: 2 Smoking cigarettes per day: 40.0 Years smoked: 44 Smoking pack-years: 88.00 Smoking status: Current every day smoker Tobacco type: cigarettes Alcohol intake: never Substance use: former Substance use type: marijuana Spiri
--- NOTE | 2022-04-09 13:15 | ADMGEN ---
This patient, Kemla Thomas, was admitted to Medical Room 248-. Patient/family oriented to hospital policies and general routines including ID bracelet, bed and alarms, visiting hours, pain management, procedures, bathroom and other care routines, personal items, smoking policy, room service/diet, and visiting hours. Information on how to activate the Rapid Response Team has been discussed. Patient/Family are encouraged to report perceived risks to care and to ask questions if they do not understand what they are told or what they should do.
[2022-04-09] MEDS: SODIUM CHLORIDE 0.9% IV 1,000 ML 250 ML IV CONT ×2 (14:48→19:59)
[2022-04-10] VITALS (9 sets, daily range): BP systolic 115–150; BP diastolic 53–56; PULSE 71–78; RESP 16–18; TEMP 36–36.7; O2SAT 87–93; BMI 18.6
[2022-04-10] MEDS: SODIUM CHLORIDE 0.9% IV 1,000 ML 250 ML IV CONT ×2 (00:56→06:17)
--- NOTE | 2022-04-10 05:09 | PC.NURSE ---
Pt resting comfortably over night. Pt has multiple abrasions to left leg, buttocks, and bilateral arms. Pt's O2 drops when sleeping. Pt placed on 2L O2. Pt improved slightly but not enough to bring him back up to the 90's so O2 was bumped up to 4L. Pt sating mid to high 90's now. Will continue to closely monitor pt.
--- NOTE | 2022-04-10 05:28 | PC.NURSE ---
Pt was turned back down to 2L O2 and is doing well. Will continue to monitor pt.
[2022-04-10 05:42] LABS: Basophils Percent Auto 0.1 % (0.2-1.2); Hematocrit 41.4 % (42.0-52.0); Hemoglobin 13.9 g/dL (14.0-18.0); Immature Granulocyte Absolute 0.04 K/mm3 (0.00-0.031); Immature Granulocyte Percent A 0.5 % (0-0.5); Immature Platelet Fraction Pct 4.4 % (0.9-11.2); Lymphocytes Absolute Auto 0.88 K/mm3 (0.9-3.2); Lymphocytes Percent Auto 10.1 % (18.3-44.2); Mean Corpuscular HGB Conc 33.6 g/dl (32-36); Mean Corpuscular Volume 89.4 fl (80-100); Mean Platelet Volume 11.1 fl (7.4-10.4); Monocytes Absolute Auto 0.8 K/mm3 (0.1-0.6); Monocytes Percent Auto 9.7 % (2.6-8.5); Neutrophils Absolute Auto 6.9 K/mm3 (1.3-6.7); Neutrophils Percent Auto 79.6 % (45.5-73.1); Platelet Count Result 114 k/mm3 (150-375); Red Blood Count 4.63 M/mm3 (4.6-6.20); Red Cell Distribution Width 14.5 % (11.5-14.5); White Blood Count 8.7 K/mm3 (4.5-10.0)
[2022-04-10 05:50] LABS: Lactic Acid Reflex 0.8 mmol/L (0.7-2.0)
[2022-04-10 05:58] LABS: CRP 3.9 mg/dL (<1.0); Creatine Kinase 568 U/L (55-170); Magnesium 1.6 mg/dL (1.6-2.3)
[2022-04-10 07:23] LABS: Free T4 Free Thyroxine Reflex 1.28 ng/dL (0.78-2.19)
[2022-04-10 08:06] LABS: Total Triiodothyronine (T3) 0.84 NG/ML (0.97-1.69)
[2022-04-10] MEDS: ACETAMINOPHEN 325 MG TABLET 650 MG PO ×4 (08:49→23:00)
--- NOTE | 2022-04-10 10:12 | PM.IMPN ---
Progress Note: A&P Assessment and Plan (1) Rhabdomyolysis: Qualifiers: Rhabdomyolysis type: non-traumatic Qualified Code(s): M62.82 - Rhabdomyolysis Code(s): M62.82 - Rhabdomyolysis Status: Acute Assessment and Plan: CK 1484 on admission patient was treated with approximately 4 L of IV fluids. Repeat CK 451. given nursing report the patient has increased dyspnea will hold IV fluids for now. No renal dysfunction noted. PT OT evaluation for weakness Urine myoglobin pending. Monitor I&O. replete electrolytes as needed, magnesium 1.5 will give 3 g rider Mag sulfate x1. (2) Pneumonia: Qualifiers: Pneumonia type: due to unspecified organism Laterality: left Lung location: lower lobe of lung Qualified Code(s): J18.9 - Pneumonia, unspecified organism Code(s): J18.9 - Pneumonia, unspecified organism Status: Acute Assessment and Plan: possible aspiration pneumonia given patient was down on the ground for more than 3 days. Start Unasyn 3 g IV q.6 hours. Obtain sputum culture with RT to induce. supplemental oxygen to keep sats greater than 90% Incentive spirometer q.2 hours while awake. pneumococcal and legionella antigen urine pending. (3) Carotid artery disease: Qualifiers: Carotid artery disease type: occlusion Laterality: left Qualified Code(s): I65.22 - Occlusion and stenosis of left carotid artery Code(s): I77.9 - Disorder of arteries and arterioles, unspecified Status: Chronic Assessment and Plan: history of a total occlusion of the right internal carotid artery and right common or carotid artery. Less than 50% stenosis of the left internal carotid artery. No visual flow the right vertebral artery which may be smaller occluded on carotid Doppler performed on 01/16/2022 resume statin here when rhabdo he is resolved (4) Hypothyroidism: Qualifiers: Hypothyroidism type: unspecified Qualified Code(s): E03.9 - Hypothyroidism, unspecified Code(s): E03.9 - Hypothyroidism, unspecified Status: Chronic Assessment and Plan: TSH 5.26, mildly elevated; free T4 1.28 within normal limits; total T3 low 0.84. Patient had normal TSH in January of this year. he is not currently taking any medications. Will treat patient's pneumonia at this time and if still has persistent weakness will initiate levothyroxine at low-dose. If symptoms resolve with antibiotic therapy with will have patient repeat thyroid panel in 4-6 weeks and PCP can initiate treatment if TSH is persistently elevated (5) Hypertension: Code(s): I10 - Essential (primary) hypertension Status: Chronic Assessment and Plan: Stable. Off medications. (6) Tobacco abuse: Code(s): Z72.0 - Tobacco use Status: Chronic Assessment and Plan: Counseled to quit smoking, approximately 5 minutes smoking cessation counseling given on admission. The patient tells me that he has quit smoking (7) Coronary artery disease: Qualifiers: Coronary Disease-Associated Artery/Lesion type: [place] artery [place] vs. transplanted heart: [place] heart Associated angina: without angina Qualified Code(s): I25.10 - Atherosclerotic heart disease of [place] coronary artery without angina pectoris Code(s): I25.10 - Atherosclerotic heart disease of [place] coronary artery without angina pectoris Status: Chronic Assessment and Plan: Continue aspirin and atorvastatin (8) Malnutrition: Qualifiers: Malnutrition type: protein-calorie malnutrition Protein-calorie malnutrition severity: unspecified severity Qualified Code(s): E46 - Unspecified protein-calorie malnutrition Code(s): E46 - Unspecified protein-calorie malnutrition Status: Acute Assessment and Plan: supplements with meals. dietary consult Plan CODE STATUS: FULL CODE Disposition: may need placem
[2022-04-10] MEDS: AMPICILLIN SULB 3 GM/NS 100 ML 3 GM/100 ML VIAL IVPB ×3 (11:23→23:01)
[2022-04-10 12:07] LABS: Anion Gap 10 mmol/L (8-16); Blood Urea Nitrogen 21 mg/dL (9-20); Calcium 7.9 mg/dL (8.4-10.2); Carbon Dioxide 23 mmol/L (22-30); Chloride 106 mmol/L (98-107); Creatine Kinase 451 U/L (55-170); Estimated CRCL calculation 87 ml/min; Estimated Glomerular Filt Rate > 60; Glucose 130 mg/dL (65-110); Magnesium 1.5 mg/dL (1.6-2.3); Potassium 3.9 mmol/L (3.4-5.0); Sodium 139 mmol/L (137-145)
[2022-04-10] MEDS: MAGNESIUM SULFATE 3GM/D5W100ML 3 GM/100 ML BAG IVPB (13:00)
[2022-04-10] MEDS: IPRATROPIUM BR 0.02% INH SOLN 0.5 MG/2.5 ML VIAL INHALATION ×2 (14:06→20:30)
[2022-04-10] MEDS: ALBUTEROL SULFATE NEB 2.5 MG/3 ML INH INHALATION ×2 (14:06→20:31)
[2022-04-11] VITALS (13 sets, daily range): BP systolic 108–148; BP diastolic 56–64; PULSE 70–81; RESP 14–20; TEMP 36.2–36.7; O2SAT 90–95
[2022-04-11] MEDS: ALBUTEROL SULFATE NEB 2.5 MG/3 ML INH INHALATION ×4 (02:08→20:12)
[2022-04-11] MEDS: IPRATROPIUM BR 0.02% INH SOLN 0.5 MG/2.5 ML VIAL INHALATION ×4 (02:08→20:11)
[2022-04-11 04:59] LABS: Basophils Percent Auto 0.2 % (0.2-1.2); Hematocrit 40.5 % (42.0-52.0); Hemoglobin 13.2 g/dL (14.0-18.0); Immature Granulocyte Absolute 0.02 K/mm3 (0.00-0.031); Immature Granulocyte Percent A 0.4 % (0-0.5); Immature Platelet Fraction Pct 5.1 % (0.9-11.2); Lymphocytes Absolute Auto 0.77 K/mm3 (0.9-3.2); Lymphocytes Percent Auto 13.8 % (18.3-44.2); Mean Corpuscular HGB Conc 32.6 g/dl (32-36); Mean Platelet Volume 10.6 fl (7.4-10.4); Monocytes Absolute Auto 0.5 K/mm3 (0.1-0.6); Neutrophils Absolute Auto 4.3 K/mm3 (1.3-6.7); Neutrophils Percent Auto 76.6 % (45.5-73.1); Platelet Count Result 84 k/mm3 (150-375); Red Cell Distribution Width 14.7 % (11.5-14.5); White Blood Count 5.6 K/mm3 (4.5-10.0)
[2022-04-11] MEDS: AMPICILLIN SULB 3 GM/NS 100 ML 3 GM/100 ML VIAL IVPB ×4 (05:23→23:02)
[2022-04-11 05:27] LABS: Anion Gap 5 mmol/L (8-16); Blood Urea Nitrogen 20 mg/dL (9-20); Calcium 8.7 mg/dL (8.4-10.2); Carbon Dioxide 25 mmol/L (22-30); Chloride 110 mmol/L (98-107); Estimated CRCL calculation 76 ml/min; Estimated Glomerular Filt Rate > 60; Glucose 118 mg/dL (65-110); Potassium 3.5 mmol/L (3.4-5.0); Sodium 140 mmol/L (137-145)
[2022-04-11] MEDS: SODIUM CHLOR 3% 15 ML NEB (RESPIRATORY THERAPY) 6 ML INHALATION (05:50)
[2022-04-11] MEDS: ACETAMINOPHEN 325 MG TABLET 650 MG PO ×3 (09:10→19:52)
[2022-04-11] MEDS: LIDOCAINE 5% PATCH 1 PATCH TRANSDERM (12:19)
[2022-04-11] MEDS: guaiFENesin 12 HR 600 MG TABCR PO ×2 (12:19→19:52)
--- NOTE | 2022-04-11 12:49 | PM.IMPN ---
Progress Note: A&P Assessment and Plan (1) Rhabdomyolysis: Qualifiers: Rhabdomyolysis type: non-traumatic Qualified Code(s): M62.82 - Rhabdomyolysis Code(s): M62.82 - Rhabdomyolysis Status: Acute Assessment and Plan: CK 1484 on admission patient was treated with approximately 4 L of IV fluids. PT OT evaluation for weakness Urine myoglobin pending. Monitor I&O. replete electrolytes as needed 04/10/22 CK 451. No renal dysfunction. Hold IV fluids. 04/11/22 Renal function stable. (2) Pneumonia: Qualifiers: Laterality: left Lung location: lower lobe of lung Pneumonia type: due to unspecified organism Qualified Code(s): J18.9 - Pneumonia, unspecified organism Code(s): J18.9 - Pneumonia, unspecified organism Status: Acute Assessment and Plan: possible aspiration pneumonia given patient was down on the ground for more than 3 days. Day 2 Unasyn 3 g IV q.6 hours- transition to oral Augmentin BID in the morning if remains afebrile and respiratory status continues to improve. Pending sputum culture supplemental oxygen to keep sats greater than 90%; Weaned to RA. Incentive spirometer q.2 hours while awake. pneumococcal and legionella antigen urine pending. Add Acapella and mucinex. (3) Carotid artery disease: Qualifiers: Carotid artery disease type: occlusion Laterality: left Qualified Code(s): I65.22 - Occlusion and stenosis of left carotid artery Code(s): I77.9 - Disorder of arteries and arterioles, unspecified Status: Chronic Assessment and Plan: history of a total occlusion of the right internal carotid artery and right common or carotid artery. Less than 50% stenosis of the left internal carotid artery. No visual flow the right vertebral artery which may be smaller occluded on carotid Doppler performed on 01/16/2022 resume statin in am. (4) Hypothyroidism: Qualifiers: Hypothyroidism type: unspecified Qualified Code(s): E03.9 - Hypothyroidism, unspecified Code(s): E03.9 - Hypothyroidism, unspecified Status: Chronic Assessment and Plan: TSH 5.26, mildly elevated; free T4 1.28 within normal limits; total T3 low 0.84. Patient had normal TSH in January of this year. he is not currently taking any medications. Will treat patient's pneumonia at this time and if still has persistent weakness will initiate levothyroxine at low-dose. If symptoms resolve with antibiotic therapy with will have patient repeat thyroid panel in 4-6 weeks and PCP can initiate treatment if TSH is persistently elevated Monitor for now. (5) Hypertension: Qualifiers: Hypertension type: primary hypertension Qualified Code(s): I10 - Essential (primary) hypertension Code(s): I10 - Essential (primary) hypertension Status: Chronic Assessment and Plan: Stable. BP 117/53 to 151/63. Off medications. Attempt to find out patient's home medications. (6) Tobacco abuse: Code(s): Z72.0 - Tobacco use Status: Chronic Assessment and Plan: Counseled to quit smoking, approximately 5 minutes smoking cessation counseling given on admission. The patient states he has quit smoking (7) Coronary artery disease: Qualifiers: Associated angina: without angina Coronary Disease-Associated Artery/Lesion type: [place] artery [place] vs. transplanted heart: [place] heart Qualified Code(s): I25.10 - Atherosclerotic heart disease of [place] coronary artery without angina pectoris Code(s): I25.10 - Atherosclerotic heart disease of [place] coronary artery without angina pectoris Status: Chronic Assessment and Plan: Continue aspirin and atorvastatin (8) Malnutrition: Qualifiers: Malnutrition type: protein-calorie malnutrition Protein-calorie malnutrition severity: unspecified severity Qualified Code(s): E46 - Unspecified protein-calorie
--- NOTE | 2022-04-11 13:50 | PCOTNOTE ---
Attempted to see pt for occupational therapy tx. Pt declined to get out of bed for participation in therapeutic activities/ADLs. Pt was educated on the importance of getting up out of bed for greater independence and strengthening. Pt continued to refuse. Pt states he will participate tomorrow with therapy. Will continue per poc duration/frequency tomorrow.
[2022-04-12] VITALS (11 sets, daily range): BP systolic 100–131; BP diastolic 50–55; PULSE 62–80; RESP 16–20; TEMP 36.4–36.8; O2SAT 92–98
[2022-04-12] MEDS: ACETAMINOPHEN 325 MG TABLET 650 MG PO ×3 (00:11→20:32)
[2022-04-12] MEDS: IPRATROPIUM BR 0.02% INH SOLN 0.5 MG/2.5 ML VIAL INHALATION ×4 (01:19→20:36)
[2022-04-12] MEDS: ALBUTEROL SULFATE NEB 2.5 MG/3 ML INH INHALATION ×4 (01:20→20:36)
[2022-04-12] MEDS: AMPICILLIN SULB 3 GM/NS 100 ML 3 GM/100 ML VIAL IVPB (05:07)
[2022-04-12 05:08] LABS: Basophils Percent Auto 0.2 % (0.2-1.2); Eosinophils Percent Auto 0.2 % (0-4.4); Hematocrit 37.4 % (42.0-52.0); Hemoglobin 11.8 g/dL (14.0-18.0); Immature Granulocyte Absolute 0.02 K/mm3 (0.00-0.031); Immature Granulocyte Percent A 0.5 % (0-0.5); Lymphocytes Absolute Auto 0.94 K/mm3 (0.9-3.2); Lymphocytes Percent Auto 22.2 % (18.3-44.2); Mean Corpuscular HGB Conc 31.6 g/dl (32-36); Mean Corpuscular Hemoglobin 29.7 pg (26-34); Mean Corpuscular Volume 94.2 fl (80-100); Mean Platelet Volume 10.9 fl (7.4-10.4); Monocytes Absolute Auto 0.5 K/mm3 (0.1-0.6); Monocytes Percent Auto 11.3 % (2.6-8.5); Neutrophils Absolute Auto 2.8 K/mm3 (1.3-6.7); Neutrophils Percent Auto 65.6 % (45.5-73.1); Platelet Count Result 78 k/mm3 (150-375); Red Blood Count 3.97 M/mm3 (4.6-6.20); Red Cell Distribution Width 15.1 % (11.5-14.5); White Blood Count 4.2 K/mm3 (4.5-10.0)
[2022-04-12 05:16] LABS: Anion Gap 3 mmol/L (8-16); Blood Urea Nitrogen 18 mg/dL (9-20); Calcium 8.4 mg/dL (8.4-10.2); Carbon Dioxide 27 mmol/L (22-30); Chloride 108 mmol/L (98-107); Estimated CRCL calculation 76 ml/min; Estimated Glomerular Filt Rate > 60; Glucose 79 mg/dL (65-110); Potassium 3.7 mmol/L (3.4-5.0); Sodium 138 mmol/L (137-145)
[2022-04-12] MEDS: LIDOCAINE 5% PATCH 1 PATCH TRANSDERM (08:20)
[2022-04-12] MEDS: AMOXICILLIN/CLAVULANATE K 875-125 MG TAB 1 TABLET PO ×2 (08:20→20:33)
[2022-04-12] MEDS: guaiFENesin 12 HR 600 MG TABCR PO ×2 (08:20→20:33)
--- NOTE | 2022-04-12 10:14 | PM.IMPN ---
Progress Note: A&P Assessment and Plan (1) Rhabdomyolysis: Qualifiers: Rhabdomyolysis type: non-traumatic Qualified Code(s): M62.82 - Rhabdomyolysis Code(s): M62.82 - Rhabdomyolysis Status: Acute Assessment and Plan: CK 1484 on admission patient was treated with approximately 4 L of IV fluids. PT OT evaluation for weakness Urine myoglobin pending. Monitor I&O. replete electrolytes as needed 04/10/22 CK 451. No renal dysfunction. Hold IV fluids. 04/11/22 Renal function stable. 04/12/22 unchanged. (2) Pneumonia: Qualifiers: Laterality: left Lung location: lower lobe of lung Pneumonia type: due to unspecified organism Qualified Code(s): J18.9 - Pneumonia, unspecified organism Code(s): J18.9 - Pneumonia, unspecified organism Status: Acute Assessment and Plan: possible aspiration pneumonia given patient was down on the ground for more than 3 days. 04/10-04/11/22 Unasyn 3 g IV q.6 hours- transition to oral Augmentin BID in the morning if remains afebrile and respiratory status continues to improve. Pending sputum culture supplemental oxygen to keep sats greater than 90%; Weaned to RA. Incentive spirometer q.2 hours while awake. pneumococcal and legionella antigen urine pending. Continue Acapella and mucinex. 04/12/22 transition to Augmentin 875-125 mg BID x 5 days, will trial 20 mg IV lasix x1 given he is +7.7 liters since admission. (3) Carotid artery disease: Qualifiers: Carotid artery disease type: occlusion Laterality: left Qualified Code(s): I65.22 - Occlusion and stenosis of left carotid artery Code(s): I77.9 - Disorder of arteries and arterioles, unspecified Status: Chronic Assessment and Plan: history of a total occlusion of the right internal carotid artery and right common or carotid artery. Less than 50% stenosis of the left internal carotid artery. No visual flow the right vertebral artery which may be smaller occluded on carotid Doppler performed on 01/16/2022 resume statin in am. (4) Hypothyroidism: Qualifiers: Hypothyroidism type: unspecified Qualified Code(s): E03.9 - Hypothyroidism, unspecified Code(s): E03.9 - Hypothyroidism, unspecified Status: Chronic Assessment and Plan: TSH 5.26, mildly elevated; free T4 1.28 within normal limits; total T3 low 0.84. Patient had normal TSH in January of this year. he is not currently taking any medications. Will treat patient's pneumonia at this time and if still has persistent weakness will initiate levothyroxine at low-dose. If symptoms resolve with antibiotic therapy with will have patient repeat thyroid panel in 4-6 weeks and PCP can initiate treatment if TSH is persistently elevated Monitor for now. (5) Hypertension: Qualifiers: Hypertension type: primary hypertension Qualified Code(s): I10 - Essential (primary) hypertension Code(s): I10 - Essential (primary) hypertension Status: Chronic Assessment and Plan: Stable. BP 117/53 to 151/63. Off medications. Appears the patient had amlodipine and lisinopril were stopped for orthostatic hypotension on his last admission. (6) Tobacco abuse: Code(s): Z72.0 - Tobacco use Status: Chronic Assessment and Plan: Counseled to quit smoking, approximately 5 minutes smoking cessation counseling given on admission. The patient states he has quit smoking (7) Coronary artery disease: Qualifiers: Associated angina: without angina Coronary Disease-Associated Artery/Lesion type: [place] artery [place] vs. transplanted heart: [place] heart Qualified Code(s): I25.10 - Atherosclerotic heart disease of [place] coronary artery without angina pectoris Code(s): I25.10 - Atherosclerotic heart disease of [place] coronary artery without angina pectoris Status: Chronic Assessment and Plan: Continue aspirin and ator
[2022-04-12] MEDS: FUROSEMIDE INJ 40 MG/4 ML VIAL 20 MG IV PUSH (10:35)
[2022-04-12] MEDS: POTASSIUM CHLORIDE 20 MEQ TABLET 40 MEQ PO (10:36)
[2022-04-13] VITALS (7 sets, daily range): BP systolic 100–112; BP diastolic 59–62; PULSE 59–88; RESP 16–20; TEMP 36.4–36.9; O2SAT 92–94
[2022-04-13] MEDS: ACETAMINOPHEN 325 MG TABLET 650 MG PO ×3 (00:39→20:14)
[2022-04-13] MEDS: ALBUTEROL SULFATE NEB 2.5 MG/3 ML INH INHALATION (02:33)
[2022-04-13] MEDS: IPRATROPIUM BR 0.02% INH SOLN 0.5 MG/2.5 ML VIAL INHALATION (02:33)
[2022-04-13] MEDS: SODIUM CHLOR 3% 15 ML NEB (RESPIRATORY THERAPY) 6 ML INHALATION (04:20)
[2022-04-13 05:03] LABS: Basophils Percent Auto 0.3 % (0.2-1.2); Eosinophils Percent Auto 0.3 % (0-4.4); Hematocrit 36.5 % (42.0-52.0); Hemoglobin 11.7 g/dL (14.0-18.0); Immature Granulocyte Absolute 0.03 K/mm3 (0.00-0.031); Immature Platelet Fraction Pct 6.8 % (0.9-11.2); Lymphocytes Absolute Auto 1.02 K/mm3 (0.9-3.2); Lymphocytes Percent Auto 32.9 % (18.3-44.2); Mean Corpuscular HGB Conc 32.1 g/dl (32-36); Mean Corpuscular Hemoglobin 29.3 pg (26-34); Mean Corpuscular Volume 91.3 fl (80-100); Mean Platelet Volume 10.9 fl (7.4-10.4); Monocytes Absolute Auto 0.4 K/mm3 (0.1-0.6); Monocytes Percent Auto 14.2 % (2.6-8.5); Neutrophils Absolute Auto 1.6 K/mm3 (1.3-6.7); Neutrophils Percent Auto 51.3 % (45.5-73.1); Platelet Count Result 81 k/mm3 (150-375); White Blood Count 3.1 K/mm3 (4.5-10.0)
[2022-04-13 05:19] LABS: Anion Gap 10 mmol/L (8-16); Blood Urea Nitrogen 20 mg/dL (9-20); Calcium 8.3 mg/dL (8.4-10.2); Carbon Dioxide 28 mmol/L (22-30); Chloride 102 mmol/L (98-107); Estimated CRCL calculation 76 ml/min; Estimated Glomerular Filt Rate > 60; Glucose 79 mg/dL (65-110); Potassium 3.8 mmol/L (3.4-5.0); Sodium 140 mmol/L (137-145)
[2022-04-13] MEDS: ATORVASTATIN 40 MG TABLET PO (08:45)
[2022-04-13] MEDS: ASPIRIN 81 MG ENTERIC TABLET PO (08:45)
[2022-04-13] MEDS: guaiFENesin 12 HR 600 MG TABCR PO ×2 (08:45→20:14)
[2022-04-13] MEDS: AMOXICILLIN/CLAVULANATE K 875-125 MG TAB 1 TABLET PO ×2 (08:46→20:14)
[2022-04-13] MEDS: LIDOCAINE 5% PATCH 1 PATCH TRANSDERM (08:46)
--- NOTE | 2022-04-13 09:57 | PM.DS ---
DS: Discharge Diagnosis Discharge Diagnosis (1) Rhabdomyolysis: Qualifiers: Rhabdomyolysis type: non-traumatic Qualified Code(s): M62.82 - Rhabdomyolysis Code(s): M62.82 - Rhabdomyolysis Status: Acute Assessment and Plan: CK 1484 on admission patient was treated with approximately 4 L of IV fluids. PT OT evaluation for weakness Urine myoglobin pending. Monitor I&O. replete electrolytes as needed 04/10/22 CK 451. No renal dysfunction. Hold IV fluids. 04/11/22 Renal function stable. 04/12/22 unchanged. (2) Pneumonia: Qualifiers: Pneumonia type: due to unspecified organism Laterality: left Lung location: lower lobe of lung Qualified Code(s): J18.9 - Pneumonia, unspecified organism Code(s): J18.9 - Pneumonia, unspecified organism Status: Acute Assessment and Plan: possible aspiration pneumonia given patient was down on the ground for more than 3 days. 04/10-04/11/22 Unasyn 3 g IV q.6 hours- transition to oral Augmentin BID in the morning if remains afebrile and respiratory status continues to improve. Pending sputum culture supplemental oxygen to keep sats greater than 90%; Weaned to RA. Incentive spirometer q.2 hours while awake. pneumococcal and legionella antigen urine pending. Continue Acapella and mucinex. 04/12/22 transition to Augmentin 875-125 mg BID x 5 days, will trial 20 mg IV lasix x1 given he is +7.7 liters since admission. (3) Carotid artery disease: Qualifiers: Carotid artery disease type: occlusion Laterality: left Qualified Code(s): I65.22 - Occlusion and stenosis of left carotid artery Code(s): I77.9 - Disorder of arteries and arterioles, unspecified Status: Chronic Assessment and Plan: history of a total occlusion of the right internal carotid artery and right common or carotid artery. Less than 50% stenosis of the left internal carotid artery. No visual flow the right vertebral artery which may be smaller occluded on carotid Doppler performed on 01/16/2022 resume statin in am. (4) Hypothyroidism: Qualifiers: Hypothyroidism type: unspecified Qualified Code(s): E03.9 - Hypothyroidism, unspecified Code(s): E03.9 - Hypothyroidism, unspecified Status: Chronic Assessment and Plan: TSH 5.26, mildly elevated; free T4 1.28 within normal limits; total T3 low 0.84. Patient had normal TSH in January of this year. he is not currently taking any medications. Will treat patient's pneumonia at this time and if still has persistent weakness will initiate levothyroxine at low-dose. If symptoms resolve with antibiotic therapy with will have patient repeat thyroid panel in 4-6 weeks and PCP can initiate treatment if TSH is persistently elevated Monitor for now. (5) Hypertension: Qualifiers: Hypertension type: primary hypertension Qualified Code(s): I10 - Essential (primary) hypertension Code(s): I10 - Essential (primary) hypertension Status: Chronic Assessment and Plan: Stable. BP 117/53 to 151/63. Off medications. Appears the patient had amlodipine and lisinopril were stopped for orthostatic hypotension on his last admission. (6) Tobacco abuse: Code(s): Z72.0 - Tobacco use Status: Chronic Assessment and Plan: Counseled to quit smoking, approximately 5 minutes smoking cessation counseling given on admission. The patient states he has quit smoking (7) Coronary artery disease: Qualifiers: Coronary Disease-Associated Artery/Lesion type: [place] artery [place] vs. transplanted heart: [place] heart Associated angina: without angina Qualified Code(s): I25.10 - Atherosclerotic heart disease of [place] coronary artery without angina pectoris Code(s): I25.10 - Atherosclerotic heart disease of [place] coronary artery without angina pectoris Status: Chronic Assessment and Plan: Continue aspirin and
[2022-04-13 11:02] LABS: EDCOVIDSCREEN Positive (Negative)
[2022-04-13 12:38] LABS: SARS-CoV-2 RNA PCR Positive
--- NOTE | 2022-04-13 12:53 | PM.IMPN ---
Progress Note: A&P Assessment and Plan (1) Rhabdomyolysis: Qualifiers: Rhabdomyolysis type: non-traumatic Qualified Code(s): M62.82 - Rhabdomyolysis Code(s): M62.82 - Rhabdomyolysis Status: Resolved Assessment and Plan: CK 1484 on admission patient was treated with approximately 4 L of IV fluids.? ?PT OT evaluation for weakness ?Urine myoglobin pending. ?Monitor I&O. ?replete electrolytes as needed ?04/10/22 CK 451. No renal dysfunction. Hold IV fluids. ?04/11/22 Renal function stable. ?04/12/22 unchanged. 04/13/22 Resolved. (2) Pneumonia: Qualifiers: Pneumonia type: due to unspecified organism Laterality: left Lung location: lower lobe of lung Qualified Code(s): J18.9 - Pneumonia, unspecified organism Code(s): J18.9 - Pneumonia, unspecified organism Status: Acute Assessment and Plan: Presumed aspiration pneumonia given patient was down on the ground for more than 3 days. 04/10-04/11/22 Unasyn 3 g IV q.6 hours- transition to oral Augmentin BID in the morning if remains afebrile and respiratory status continues to improve. Pending sputum culture? supplemental oxygen to keep sats greater than 90%; Weaned to RA. Incentive spirometer q.2 hours while awake. pneumococcal and legionella antigen urine pending. Continue Acapella and mucinex. 04/12/22 transition to Augmentin 875-125 mg BID x 5 days, will trial 20 mg IV lasix x1 given he is +7.7 liters since admission. 04/13/22 improved. Now COVID19 rapid and PCR positive. (3) Malnutrition: Qualifiers: Malnutrition type: protein-calorie malnutrition Protein-calorie malnutrition severity: unspecified severity Qualified Code(s): E46 - Unspecified protein-calorie malnutrition Code(s): E46 - Unspecified protein-calorie malnutrition Status: Acute Assessment and Plan: supplements with meals. dietary consult (4) SARS-CoV-2 positive: Code(s): U07.1 - COVID-19 Status: Acute Assessment and Plan: Positive rapid atigen and PCR. Respiratory symptoms improved. Off supplemental oxygen. Hold remdesivir and dexamethasone at this time. Continue supportive care. (5) Carotid artery disease: Qualifiers: Carotid artery disease type: occlusion Laterality: left Qualified Code(s): I65.22 - Occlusion and stenosis of left carotid artery Code(s): I77.9 - Disorder of arteries and arterioles, unspecified Status: Chronic Assessment and Plan: history of a total occlusion of the right internal carotid artery and right common or carotid artery. Less than 50% stenosis of the left internal carotid artery.? No visual flow the right vertebral artery which may be smaller occluded on carotid Doppler performed on 01/16/2022 Continue aspirin and statin. (6) Hypothyroidism: Qualifiers: Hypothyroidism type: unspecified Qualified Code(s): E03.9 - Hypothyroidism, unspecified Code(s): E03.9 - Hypothyroidism, unspecified Status: Chronic Assessment and Plan: TSH 5.26, mildly elevated; free T4 1.28 within normal limits; total T3 low 0.84. Patient had normal TSH in January of this year. ? he is not currently taking any medications. Improving. Repeat Thyroid panel in 4-6 weeks. (7) Hypertension: Qualifiers: Hypertension type: primary hypertension Qualified Code(s): I10 - Essential (primary) hypertension Code(s): I10 - Essential (primary) hypertension Status: Chronic Assessment and Plan: Stable. Off medications. Appears the patient had amlodipine and lisinopril were stopped for orthostatic hypotension on his last admission. (8) Tobacco abuse: Code(s): Z72.0 - Tobacco use Status: Chronic Assessment and Plan: Counseled to quit smoking, approximately 5 minutes smoking cessation counseling given on admission (9) Coronary artery disease: Qualifiers: Coronary Disease-Asso
[2022-04-14 04:40] VITALS: BP 121/56; PULSE 66; RESP 18; TEMP 36.5; O2SAT 94
[2022-04-14 05:26] LABS: Basophils Percent Auto 0.3 % (0.2-1.2); Eosinophils Percent Auto 0.3 % (0-4.4); Hematocrit 37.9 % (42.0-52.0); Hemoglobin 12.3 g/dL (14.0-18.0); Immature Granulocyte Absolute 0.03 K/mm3 (0.00-0.031); Immature Granulocyte Percent A 0.8 % (0-0.5); Immature Platelet Fraction Pct 6.1 % (0.9-11.2); Lymphocytes Absolute Auto 1.05 K/mm3 (0.9-3.2); Lymphocytes Percent Auto 27.8 % (18.3-44.2); Mean Corpuscular HGB Conc 32.5 g/dl (32-36); Mean Corpuscular Hemoglobin 29.9 pg (26-34); Mean Platelet Volume 10.6 fl (7.4-10.4); Monocytes Absolute Auto 0.7 K/mm3 (0.1-0.6); Monocytes Percent Auto 17.7 % (2.6-8.5); Neutrophils Percent Auto 53.1 % (45.5-73.1); Platelet Count Result 102 k/mm3 (150-375); Red Blood Count 4.12 M/mm3 (4.6-6.20); Red Cell Distribution Width 14.9 % (11.5-14.5); White Blood Count 3.8 K/mm3 (4.5-10.0)
[2022-04-14 05:35] LABS: Anion Gap 4 mmol/L (8-16); Blood Urea Nitrogen 20 mg/dL (9-20); Calcium 8.5 mg/dL (8.4-10.2); Carbon Dioxide 27 mmol/L (22-30); Chloride 106 mmol/L (98-107); Estimated CRCL calculation 76 ml/min; Estimated Glomerular Filt Rate > 60; Glucose 76 mg/dL (65-110); Potassium 3.7 mmol/L (3.4-5.0); Sodium 137 mmol/L (137-145)
[2022-04-14] MEDS: guaiFENesin 12 HR 600 MG TABCR PO (08:37)
[2022-04-14] MEDS: AMOXICILLIN/CLAVULANATE K 875-125 MG TAB 1 TABLET PO (08:37)
[2022-04-14] MEDS: ATORVASTATIN 40 MG TABLET PO (08:37)
[2022-04-14] MEDS: LIDOCAINE 5% PATCH 1 PATCH TRANSDERM (08:37)
[2022-04-14] MEDS: ASPIRIN 81 MG ENTERIC TABLET PO (08:37)
--- NOTE | 2022-04-14 12:57 | P.PNIM_ITS ---
Progress Note: A&P Assessment and Plan (1) Rhabdomyolysis: Qualifiers: Rhabdomyolysis type: non-traumatic Qualified Code(s): M62.82 - Rhabdomyolysis Code(s): M62.82 - Rhabdomyolysis Status: Resolved Assessment and Plan: CK 1484 on admission patient was treated with approximately 4 L of IV fluids.? ?PT OT evaluation for weakness ?Urine myoglobin pending. ?Monitor I&O. ?replete electrolytes as needed ?04/10/22 CK 451. No renal dysfunction. Hold IV fluids. ?04/11/22 Renal function stable. ?04/12/22 unchanged. 04/13/22 Resolved. (2) Pneumonia: Qualifiers: Laterality: left Lung location: lower lobe of lung Pneumonia type: due to unspecified organism Qualified Code(s): J18.9 - Pneumonia, unspecified organism Code(s): J18.9 - Pneumonia, unspecified organism Status: Acute Assessment and Plan: Presumed aspiration pneumonia given patient was down on the ground for more than 3 days. 04/10-04/11/22 Unasyn 3 g IV q.6 hours- transition to oral Augmentin BID in the morning if remains afebrile and respiratory status continues to improve. Pending sputum culture? supplemental oxygen to keep sats greater than 90%; Weaned to RA. Incentive spirometer q.2 hours while awake. pneumococcal and legionella antigen urine pending. Continue Acapella and mucinex. 04/12/22 transition to Augmentin 875-125 mg BID x 5 days, will trial 20 mg IV lasix x1 given he is +7.7 liters since admission. 04/13/22 improved. Now COVID19 rapid and PCR positive. (3) Malnutrition: Qualifiers: Malnutrition type: protein-calorie malnutrition Protein-calorie malnutrition severity: unspecified severity Qualified Code(s): E46 - Unspecified protein-calorie malnutrition Code(s): E46 - Unspecified protein-calorie malnutrition Status: Acute Assessment and Plan: supplements with meals. dietary consult (4) SARS-CoV-2 positive: Code(s): U07.1 - COVID-19 Status: Acute Assessment and Plan: Positive rapid atigen and PCR. Respiratory symptoms improved. Off supplemental oxygen. Hold remdesivir and dexamethasone at this time. Continue supportive care. (5) Carotid artery disease: Qualifiers: Carotid artery disease type: occlusion Laterality: left Qualified Code(s): I65.22 - Occlusion and stenosis of left carotid artery Code(s): I77.9 - Disorder of arteries and arterioles, unspecified Status: Chronic Assessment and Plan: history of a total occlusion of the right internal carotid artery and right common or carotid artery. Less than 50% stenosis of the left internal carotid ar giuseppe.? No visual flow the right vertebral artery which may be smaller occluded on carotid Doppler performed on 01/16/2022 Continue aspirin and statin. (6) Hypothyroidism: Qualifiers: Hypothyroidism type: unspecified Qualified Code(s): E03.9 - Hypothyroidism, unspecified Code(s): E03.9 - Hypothyroidism, unspecified Status: Chronic Assessment and Plan: TSH 5.26, mildly elevated; free T4 1.28 within normal limits; total T3 low 0.84. Patient had normal TSH in January of this year. ? he is not currently taking any medications. Improving. Repeat Thyroid panel in 4-6 weeks. (7) Hypertension: Qualifiers: Hypertension type: primary hypertension Qualified Code(s): I10 - Essential (primary) hypertension Code(s): I10 - Essential (primary) hypertension Status: Chronic Assessment and Plan: Stable. Off medicatio
--- NOTE | 2022-04-14 13:14 | PM.DS ---
DS: Admitting Diagnosis Discharge Date 04/14/22 1316 Admitting Diagnosis Rhabdomyolysis Carotid artery disease Hypothyroidism Malnutrition DS: Discharge Diagnosis Discharge Diagnosis (1) Rhabdomyolysis: Qualifiers: Rhabdomyolysis type: non-traumatic Qualified Code(s): M62.82 - Rhabdomyolysis Code(s): M62.82 - Rhabdomyolysis Status: Resolved (2) Pneumonia: Qualifiers: Laterality: left Lung location: lower lobe of lung Pneumonia type: due to unspecified organism Qualified Code(s): J18.9 - Pneumonia, unspecified organism Code(s): J18.9 - Pneumonia, unspecified organism Status: Acute (3) Malnutrition: Qualifiers: Malnutrition type: protein-calorie malnutrition Protein-calorie malnutrition severity: unspecified severity Qualified Code(s): E46 - Unspecified protein-calorie malnutrition Code(s): E46 - Unspecified protein-calorie malnutrition Status: Acute (4) SARS-CoV-2 positive: Code(s): U07.1 - COVID-19 Status: Acute (5) Carotid artery disease: Qualifiers: Carotid artery disease type: occlusion Laterality: left Qualified Code(s): I65.22 - Occlusion and stenosis of left carotid artery Code(s): I77.9 - Disorder of arteries and arterioles, unspecified Status: Chronic (6) Hypothyroidism: Qualifiers: Hypothyroidism type: unspecified Qualified Code(s): E03.9 - Hypothyroidism, unspecified Code(s): E03.9 - Hypothyroidism, unspecified Status: Chronic (7) Hypertension: Qualifiers: Hypertension type: primary hypertension Qualified Code(s): I10 - Essential (primary) hypertension Code(s): I10 - Essential (primary) hypertension Status: Chronic (8) Tobacco abuse: Code(s): Z72.0 - Tobacco use Status: Chronic (9) Coronary artery disease: Qualifiers: Associated angina: without angina Coronary Disease-Associated Artery/Lesion type: [place] artery [place] vs. transplanted heart: [place] heart Qualified Code(s): I25.10 - Atherosclerotic heart disease of [place] coronary artery without angina pectoris Code(s): I25.10 - Atherosclerotic heart disease of [place] coronary artery without angina pectoris Status: Chronic DS: Summary Hospital Course Reason for hospitalization: Weakness Hospital Course: Kemal Thomas is a 71-year-old male patient who has a history of CVA with left-sided weakness, hypertension, COPD and hypothyroidism.? The patient came to the emergency room with complaints of weakness.? The patient stated that he has been generally weak over the last week and has had several falls in that time.? He is typically able to take care of himself until recently.? The patient stated that he fell on the floor 3 days prior to admission and not could not get up from the floor.? He stated that his girlfriend that lives with him is mentally slow and was not there to help him.? He has stayed on the floor for 3 days without any meals or water.? The patient was unable to get up to use the restroom and stated that he went in his pants.? H&H is 19.0 and 56.5.? PH is 7.275 CO2 is 39.1.?Total creatinine kinase 1484.? IV fluids were initiated in the ED.? The patient was admitted to the medical floor and treated with aggressive IV hydration. His CK was monitored and decreased from 1484 to 451. His renal function was stable during his hospital stay. Magnesium was repleted with IV as needed. On 04/10/22 the nurse reported the patient had coarse lung sounds and was requiring supplemental O2 up to 2-3 liters; he does not wear oxygen at home. Chest x-ray was obtained and concerning for LLL opacities suggestive of atelectasis versus pneumonia. Given the patient was on the floor for 3 days and weak, there was concern for aspiration pneumonia. He was treated with Unasyn 3 grams Q6 hours x 48 hours and duonebs scheduled. He was transitioned to Augmentin 875/125
[2022-04-14 13:51] VITALS: BP 114/71; PULSE 86; RESP 16; TEMP 36.6; O2SAT 93
[2022-04-16 03:39] LABS: Pneumococcal Antigen Urine Not Detected (Not Detected)
[2022-04-17 07:25] LABS: Legionella pneumophila Ag Ur Not Detected (Not Detected)
== END 2022-04-14 14:10 ==
LOC: ANHED 09:21 → ANH2MED 15:51
PROVIDERS: Nurse Practitioner; Physician Assistant; Admitting Provider Chiropractor; Emergency Provider Emergency Medicine; PCP Internal Medicine; Visit Provider Nurse Practitioner Family
DX: M62.82 Rhabdomyolysis (principal); J18.9 Pneumonia, unspecified organism; E46 Unspecified protein-calorie malnutrition; U07.1 COVID-19; I65.22 Occlusion and stenosis of left carotid artery; I77.9 Disorder of arteries and arterioles, unspecified; I69.354 Hemiplegia and hemiparesis following cerebral infarction affecting left non-dominant side; E03.9 Hypothyroidism, unspecified; I10 Essential (primary) hypertension; F17.210 Nicotine dependence, cigarettes, uncomplicated; I49.1 Atrial premature depolarization; I49.3 Ventricular premature depolarization; I25.10 Atherosclerotic heart disease of native coronary artery without angina pectoris; J44.0 Chronic obstructive pulmonary disease with (acute) lower respiratory infection; R19.7 Diarrhea, unspecified; M25.552 Pain in left hip; K76.0 Fatty (change of) liver, not elsewhere classified; E78.00 Pure hypercholesterolemia, unspecified; Z98.890 Other specified postprocedural states; Z90.5 Acquired absence of kidney; F12.90 Cannabis use, unspecified, uncomplicated; Z68.1 Body mass index [BMI] 19.9 or less, adult; R79.89 Other specified abnormal findings of blood chemistry; R74.8 Abnormal levels of other serum enzymes; S00.03XA Contusion of scalp, initial encounter; R29.6 Repeated falls; Z79.51 Long term (current) use of inhaled steroids; Z79.891 Long term (current) use of opiate analgesic; Z79.1 Long term (current) use of non-steroidal anti-inflammatories (NSAID); Z79.899 Other long term (current) drug therapy; Z82.49 Family history of ischemic heart disease and other diseases of the circulatory system
CPT/HCPCS: 36415; 51701; 70450; 71045; 71046; 73502; 80048; 80053; 81001; 82550; 82728; 82803; 82948; 83605; 83735; 83874; 84439; 84443; 84480; 85025; 85055; 85610; 85730; 86140; 87070; 87081; 87205; 87426; 87449; 87899; 93005; 94640; 96360; 96361; 96365; 96366; 96367; 96375; 97161; 97165; 97530; 97535; 99285; A9270; C9803; G0378; J0295; J1940; J3475; J7030; U0003; U0005

== ENCOUNTER 2022-05-11 09:14 | Emergency (ER) | payer MEDICARE, MEDICAID, SELFPAY ==
--- NOTE | ~2022-05-11 | XR_ITS ---
EXAMINATION: XR chest 2V 05/11/2022 09:48 INDICATION: Weakness. PROCEDURE: 2 view chest COMPARISON: Comparison to multiple prior studies sequentially, with oldest reviewed study dated 12/17. FINDINGS: The lungs are clear. The cardiomediastinal silhouette is within normal limits. There are no pleural effusions. There is no pneumothorax suspected. There are multiple healed left rib fractu res. Osteopenia. There are symmetric degenerative changes of the acromioclavicular joints. IMPRESSION: 1: NO ACUTE CARDIOPULMONARY DISEASE. Reviewed, dictated and finalized at location A.
[2022-05-11 09:11] VITALS: BP 120/69; PULSE 65; RESP 18; TEMP 36.7; O2SAT 97
--- NOTE | 2022-05-11 09:17 | ECG_ITS ---
Measurements Intervals [place] Rate: 65 P: 81 TN: 169 QRS: 20 QRSD: 89 T: 76 QT: 399 QTc: 416 Interpretive Statements SINUS RHYTHM WITH SINUS ARRHYTHMIA BASELINE ARTIFACT LOW-VOLTAGE QRS IN LIMB LEADS BORDERLINE ECG COMPARED TO ECG 04/09/2022 08:59:16 SINUS ARRHYTHMIA NOW PRESENT Electronically Signed On 05-11-2022 15:08:17 CDT by Manan Caba M.D.
[2022-05-11 09:19] LABS: Glucose Point of Care 80 mg/dl (65-105)
[2022-05-11 09:34] LABS: Basophils Absolute Auto 0.1 K/mm3 (0.0-0.1); Basophils Percent Auto 0.7 % (0.2-1.2); Eosinophils Absolute Auto 0.4 K/mm3 (0-0.3); Eosinophils Percent Auto 2.9 % (0-4.4); Hematocrit 40.5 % (42.0-52.0); Hemoglobin 12.9 g/dL (14.0-18.0); Immature Granulocyte Absolute 0.14 K/mm3 (0.00-0.031); Immature Granulocyte Percent A 1.1 % (0-0.5); Lymphocytes Absolute Auto 2.04 K/mm3 (0.9-3.2); Lymphocytes Percent Auto 16.7 % (18.3-44.2); Mean Corpuscular HGB Conc 31.9 g/dl (32-36); Mean Corpuscular Hemoglobin 28.2 pg (26-34); Mean Corpuscular Volume 88.4 fl (80-100); Mean Platelet Volume 9.6 fl (7.4-10.4); Monocytes Absolute Auto 0.9 K/mm3 (0.1-0.6); Monocytes Percent Auto 7.3 % (2.6-8.5); Neutrophils Absolute Auto 8.7 K/mm3 (1.3-6.7); Neutrophils Percent Auto 71.3 % (45.5-73.1); Platelet Count Result 288 k/mm3 (150-375); Red Blood Count 4.58 M/mm3 (4.6-6.20); Red Cell Distribution Width 14.8 % (11.5-14.5); White Blood Count 12.2 K/mm3 (4.5-10.0)
[2022-05-11 09:37] VITALS: PULSE 65
[2022-05-11 09:57] LABS: Alanine Aminotransferase 14 U/L (6-50); Alkaline Phosphatase 88 U/L (38-126); Anion Gap 6 mmol/L (8-16); Aspartate Amino Transferase 22 U/L (17-59); Bilirubin,Total 0.6 mg/dL (0.2-1.3); Blood Urea Nitrogen 15 mg/dL (9-20); Calcium 9.3 mg/dL (8.4-10.2); Carbon Dioxide 29 mmol/L (22-30); Chloride 100 mmol/L (98-107); Estimated CRCL calculation 65 ml/min; Estimated Glomerular Filt Rate > 60; Glucose 99 mg/dL (65-110); Potassium 4.5 mmol/L (3.4-5.0); Sodium 135 mmol/L (137-145)
[2022-05-11 10:33] VITALS: BP 124/60; PULSE 59
[2022-05-11 10:34] VITALS: BP 118/65; PULSE 62
[2022-05-11 10:35] LABS: Appearance Urine Clear (Clear); Bilirubin Urine Negative (Negative); Blood Urine Negative (Negative); Color Urine Yellow (Yellow); Glucose Urine UA Negative (Negative); Ketones Urine Negative (Negative); Leukocyte Esterase Ur Trace LEU/UL (Negative); Nitrate Urine Negative (Negative); Protein Urine 1+ mg/dL (Negative); Specific Grav Ur 1.015 (1.001-1.035); pH Urine 7.5 (5.0-9.0)
[2022-05-11 10:36] VITALS: BP 109/72; PULSE 82
[2022-05-11 10:43] LABS: Add Urine Microscopic? YES; Bacteria Urine Trace /hpf; Mucus Urine Rare /lpf; RBC Urine 0-2 /hpf (0-2)
[2022-05-11] MEDS: SODIUM CHLORIDE 0.9% IV 1,000 ML 999 ML IV CONT (12:07)
--- NOTE | 2022-05-11 13:49 | PC.NURSE ---
Patient ambulated with walker with no difficulty. WILLIAM Hernandez notified.
--- NOTE | 2022-05-11 14:07 | ED.WEAKNESS ---
HPI - Weakness General Chief complaint: Weakness Stated complaint: weak lethargic loss of bladder Time Seen by Provider: 05/11/22 09:23 History of Present Illness HPI Narrative: Patient is a 71-year-old male who presents ER with weakness. Patient reports he woke up this morning and had urinated himself which was of concern. His girlfriend then came downstairs and helped set him up in bed and he became very dizzy. Recently was released from rehab. No fevers or chills or sweats. No chest pain or chest pressure. He has history of previous stroke. No new focal weakness. Has no additional concerns at this time. Dizziness is not rotational. There is no sweats or nausea related to it. Related Data Allergies Allergy/AdvReac Type Severity Reaction Status Date / Time No Known Allergies Allergy Unknown Verified 01/14/22 18:40 Review of Systems Review of Systems: All systems reviewed & are unremarkable except as noted in HPI and below Constitutional: Constitutional: Denies chills, Denies fatigue and Denies fever(s) ENT: Denies nasal congestion and Denies sore throat Cardiovascular: Cardiovascular: Denies chest pain, Denies rapid heart rate and Denies radiating jaw, neck or arm pain Gastrointestinal: Gastrointestinal: Denies abdominal pain, Denies nausea and Denies vomiting Genitourinary: Genitourinary: Denies dysuria, Denies urinary frequency and Reports urinary incontinence [facility] Past Medical History Medical History (Updated 05/11/22 @ 14:09 by Arjun Hernandez MD) Cerebrovascular accident Residual left-sided weakness. Community acquired pneumonia Coronary artery disease Nonobstructive coronary artery disease heard in February 2011. Hepatic steatosis Hypercholesterolemia Hypertension Hypothyroidism Tobacco abuse Surgical History Surgical History History of cardiac catheterization History of right inguinal hernia repair History of right nephrectomy Removed as a child for recurrent infections. S/P hip hemiarthroplasty Family History Family History Father Heat stroke Other Diabetes mellitus Heart disease Hypertension Social History Social History (Updated 04/09/22 @ 14:10 by Mikayla Gardner NP) Social History: Surrogate decision maker: Anastacio Hi, friend. He said he has quit smoking it was noted that he was still smoking this past January. He is retired from [employer] [place]. He lives with a significant other and has no children. Code status: Full code. Smoking packs per day: 2 Smoking cigarettes per day: 40.0 Years smoked: 44 Smoking pack-years: 88.00 Smoking status: Current every day smoker Tobacco type: cigarettes Alcohol intake: never Substance use: former Substance use type: marijuana Spiritual care concerns: No Exam Narrative: GENERAL: Well-appearing, well-nourished, and in no acute distress. HEAD: Normocephalic, atraumatic. EYES: PERRL and EOMI. ENT: Mucous membranes moist. CHEST: Clear to auscultation. No respiratory distress. HEART: Regular rate and rhythm. Normal peripheral pulses. ABDOMEN: Soft, nontender, nondistended. EXTREMITIES: Normal range of motion. No edema. SKIN: Warm, dry, no rash. NEURO: Alert and oriented x3. Course Course Emergency Course: Patient resting comfortably. Hydrated. He did have some orthostasis. Patient has been up and ambulatory with steady gait using a walker. He does use a walker at home. Vital Signs Vital signs: Vital Signs Temperature 98.1 F 05/11/22 09:11 Pulse Rate 65 05/11/22 09:11 Respiratory Rate 18 05/11/22 09:11 Blood Pressure 120/69 05/11/22 09:11 Pulse Oximetry 97 05/11/22 09:11 Oxygen Delivery Room Air 05/11/22 09:11 Temperature 98.1 F 05/11/22 09:11 Pulse Rate 82 05/11/22 10:36 Respiratory Rate 18 05/11/22 09:11 Blood Pressure 109/72 05/11/22 10:36
--- NOTE | 2022-05-11 14:34 | PC.NURSE ---
Care coordination called for possible placement in senior living. Friend Anastacio states that he has nobody to take care of him at home and can't return home.
--- NOTE | 2022-05-11 15:38 | PCCCNOTE ---
Called by bedside KOLE Campuzano about meeting with patient about resources and caring for himself. Met with patient at bedside he states that he lives on 4th floor and has a friend caregiver Mindy Fernandez that lives on the 5th floor. Patient states that he is able to walk around his apartment with a walker, he is able to dress, bath himself and able to fix his own meals. He was discharged last week from [facility], today per nursing note he was able to walk around ED stable with walker. Asked his friends are concerned about him going back home and he states it was because he woke up wet today but it isn't something that happens all the time. Asked if he has any family and he denies states that he was never and does not have any children, all siblings have passed. Thinks that maybe a caregiver or resources from states like some of the apartment residents would be helpful. Provided patient with Senior Hotline from [place] Department of Aging, Private duty caregiver list, assisted living list and custodial. Patient verbalizes understanding and is thankful for the resources, advised that he needs to do some work and make the calls and he states that he will, he is getting a phone on and plans to call. Patient gives permission to call his friend Anastacio, about transportation, called Anastacio advised him that patient is doing better, and able to walk around ER with walker, insurance would not pay for admission to custodial so it would be for patient to private pay. Advised that this health care assistant provided resources to call Department of Aging of [place], but also private duty resources and assisted living. Anastacio verbalizes understanding and agrees to assist patient with transportation home. Bedside RNTatianna updated.
== END 2022-05-11 15:38 | disposition home or self-care (01) ==
PROVIDERS: Emergency Provider Emergency Medicine; PCP Internal Medicine
DX: N39.0 Urinary tract infection, site not specified (principal); E86.0 Dehydration; I69.954 Hemiplegia and hemiparesis following unspecified cerebrovascular disease affecting left non-dominant side; I25.10 Atherosclerotic heart disease of native coronary artery without angina pectoris; E78.00 Pure hypercholesterolemia, unspecified; I10 Essential (primary) hypertension; E03.9 Hypothyroidism, unspecified; Z87.01 Personal history of pneumonia (recurrent); Z90.5 Acquired absence of kidney; F17.210 Nicotine dependence, cigarettes, uncomplicated
CPT/HCPCS: 36415; 51701; 71046; 80053; 81001; 82948; 85025; 87086; 87147; 87181; 87186; 93005; 96360; 99283; J7030

== ENCOUNTER 2022-06-04 10:34 | Emergency (ER) | payer MEDICARE, MEDICAID, SELFPAY ==
[2022-06-04] VITALS (21 sets, daily range): BP systolic 99–166; BP diastolic 57–75; PULSE 54–64; RESP 14–26; TEMP 36.2; O2SAT 96–100
--- NOTE | ~2022-06-04 | XR_ITS ---
EXAMINATION: XR chest 1V portable 06/04/2022 11:49 INDICATION: Weakness. Weight loss. PROCEDURE: 2 view chest COMPARISON: 05/11/2022 FINDINGS: There is a nodular density left lower thorax. No focal pneumonia, edema. The cardiomediasti nal silhouette is within normal limits. There are no pleural effusions. There is no pneumothorax harris spected. IMPRESSION: 1: NO ACUTE CARDIOPULMONARY DISEASE. 2: Focal nodular density left lower thorax. Recommend correlation with CT to exclude parenchymal nod ule. Reviewed, dictated and finalized at location B. IMPRESSION: 1: NO ACUTE CARDIOPULMONARY DISEASE. 2: Focal nodular density left lower thorax. Recommend correlation with CT to e xclude parenchymal nodule.
--- NOTE | ~2022-06-04 | CT_ITS ---
EXAMINATION: CT diagnostic chest wo con DATE: 06/04/2022 12:44 INDICATION: nodule TECHNIQUE: Computed tomography (CT) of the chest was performed without intravenous contrast. Addition al 3D reconstructions utilizing coronal maximum intensity projection (MIP) were performed. Automated exposure control and iterative reconstruction technique were employed. The dose-length product was 17 2.50 mGy-cm. COMPARISON: None FINDINGS: Minimal emphysema with minimal biapical pleural-parenchymal scarring. Elevation the right hemidiaphra gm with mild atelectasis at the dependent right lung base. Calcified right middle lobe nodule along w ith calcified right hilar and mediastinal lymph nodes, multiple splenic calcifications and a few scat tered hepatic and desiccation, all consistent with old granulomatous disease. No suspicious pulmonary nodules identified. The nodular opacity projecting over the left lower lung zone appears to correspo nd to a nipple shadow superimposed over the intersection of the anterior fifth and posterior ninth ri bs. No pneumonia, pulmonary edema or pleural effusion. Heart size is normal. Atherosclerotic coronary artery calcifications. Thoracic aorta is normal in caliber. No pathologically enlarged thoracic lymp hadenopathy. There are couple surgical clips along side the right 12th rib. There are tiny bilateral hypoplastic riblets at L1. There are a few old left-sided rib fractures. IMPRESSION: 1. No suspicious pulmonary nodules or acute cardiopulmonary disease. The nodular opacity of concern a ppears to result from a nipple shadow accentuated by superimposed rib shadows. 2. Elevation of the right hemidiaphragm with mild dependent right basilar atelectasis. Reviewed, dictated and finalized at [facility]. IMPRESSION: 1. No suspicious pulmonary nodules or acute cardiopulmonary disease. The nodula r opacity of concern appears to result from a nipple shadow accentuated by supe rimposed rib shadows. 2. Elevation of the right hemidiaphragm with mild dependent right basilar atele ctasis.
--- NOTE | ~2022-06-04 | CT_ITS ---
EXAMINATION: CT brain wo con DATE: 06/04/2022 12:44 INDICATION: Left-sided weakness TECHNIQUE: Computed tomography (CT) of the head was performed without intravenous contrast. The mA wa s adjusted according to patient size. Iterative reconstruction technique was employed. Exam dose: 60 5.33 mGy-cm total exam DLP. COMPARISON: 04/09/2022 CT brain FINDINGS: Small lacunar infarct is suggested in the left hillary. Chronic right basal ganglia lacunar an d right frontoparietal infarcts. There is nonspecific diminished attenuation of the cerebral white matter, likely due to chronic small vessel ischemic changes. Prominent lateral carotid siphon internal carotid artery calcifications are noted. No intracranial mass lesion or hemorrhage, midline shift or mass effect. Mild to moderate cerebral and cerebellar volume loss. No subdural or epidural hematoma. No fracture or bone destruction of the cranial vault. Included mastoid air cells and paranasal sinuse s are unremarkable. 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 Reviewed, dictated and finalized at [facility]. IMPRESSION: Limited infarcts of left hillary, right basal ganglia and chronic sma ll right frontoparietal infarct Cerebral atherosclerosis and chronic small vessel ischemic changes of cerebral white matter
--- NOTE | 2022-06-04 10:59 | ECG_ITS ---
Measurements Intervals [place] Rate: 63 P: 78 [place]: 162 QRS: 68 QRSD: 90 T: 66 QT: 395 QTc: 405 Interpretive Statements SINUS RHYTHM WITH OCCASIONAL SUPRAVENTRICULAR PREMATURE COMPLEXES COMPARED TO ECG 05/11/2022 09:17:54 NO SIGNIFICANT CHANGES Electronically Signed On 06-04-2022 14:33:30 CDT by Constanza Houser M.D.
[2022-06-04 11:35] LABS: Basophils Absolute Auto 0.1 K/mm3 (0.0-0.1); Eosinophils Absolute Auto 0.4 K/mm3 (0-0.3); Eosinophils Percent Auto 4.6 % (0-4.4); Hematocrit 44.9 % (42.0-52.0); Hemoglobin 14.5 g/dL (14.0-18.0); Immature Granulocyte Absolute 0.04 K/mm3 (0.00-0.031); Immature Granulocyte Percent A 0.4 % (0-0.5); Lymphocytes Absolute Auto 2.38 K/mm3 (0.9-3.2); Lymphocytes Percent Auto 26.7 % (18.3-44.2); Mean Corpuscular HGB Conc 32.3 g/dl (32-36); Mean Corpuscular Hemoglobin 29.2 pg (26-34); Mean Corpuscular Volume 90.5 fl (80-100); Mean Platelet Volume 10.1 fl (7.4-10.4); Monocytes Absolute Auto 0.7 K/mm3 (0.1-0.6); Monocytes Percent Auto 7.7 % (2.6-8.5); Neutrophils Absolute Auto 5.3 K/mm3 (1.3-6.7); Neutrophils Percent Auto 59.6 % (45.5-73.1); Platelet Count Result 201 k/mm3 (150-375); Red Blood Count 4.96 M/mm3 (4.6-6.20); Red Cell Distribution Width 16.5 % (11.5-14.5); White Blood Count 8.9 K/mm3 (4.5-10.0)
[2022-06-04 11:50] LABS: Alanine Aminotransferase 12 U/L (6-50); Albumin Level 4.2 g/dL (3.5-5.1); Alkaline Phosphatase 75 U/L (38-126); Anion Gap 10 mmol/L (8-16); Aspartate Amino Transferase 19 U/L (17-59); Bilirubin,Total 0.4 mg/dL (0.2-1.3); Blood Urea Nitrogen 22 mg/dL (9-20); Calcium 9.4 mg/dL (8.4-10.2); Carbon Dioxide 27 mmol/L (22-30); Chloride 99 mmol/L (98-107); Estimated CRCL calculation 53 ml/min; Estimated Glomerular Filt Rate > 60; Glucose 88 mg/dL (65-110); Potassium 4.7 mmol/L (3.4-5.0); Sodium 136 mmol/L (137-145)
--- NOTE | 2022-06-04 12:26 | ED.WEAKNESS ---
HPI - Weakness General Chief complaint: Weakness Stated complaint: failure to care for self (wants NH placement) Time Seen by Provider: 06/04/22 12:00 Source: RN notes reviewed History of Present Illness HPI Narrative: Patient presents emergency department from home for weakness. Patient states he has a history of previous stroke in the past as well as falling and breaking his left hip he states that he has been in a rehab facility before in the past but is currently back at home has been having a difficult time getting up and taking care of himself at home states he is just been feeling generally more weak. He denies any focal illness he denies any recent fevers or chills chest pain shortness of breath cough abdominal pain nausea vomiting diarrhea or any other symptoms he states he feels like he will require placement in a penitentiary Related Data Allergies Allergy/AdvReac Type Severity Reaction Status Date / Time No Known Allergies Allergy Unknown Verified 01/14/22 18:40 Review of Systems Review of Systems: Gen.: Denies fevers or chills Eyes: Denies eye pain or visual change ENT: Denies congestion Respiratory: Denies shortness of breath or cough CV: Denies chest pain or palpitations GI: Denies abdominal pain nausea, emesis or diarrhea Musculoskeletal: Denies back pain or muscle pain Neuro: Reports generalized weakness Skin: Denies rash Except as documented, all other systems reviewed and negative [facility] Past Medical History Medical History Cerebrovascular accident Residual left-sided weakness. Community acquired pneumonia Coronary artery disease Nonobstructive coronary artery disease heard in February 2011. Hepatic steatosis Hypercholesterolemia Hypertension Hypothyroidism Tobacco abuse Surgical History Surgical History History of cardiac catheterization History of right inguinal hernia repair History of right nephrectomy Removed as a child for recurrent infections. S/P hip hemiarthroplasty Family History Family History Father Heat stroke Other Diabetes mellitus Heart disease Hypertension Social History Social History Social History: Surrogate decision maker: Anastacio Hi, friend. He said he has quit smoking it was noted that he was still smoking this past January. He is retired from [employer]. He lives with a significant other and has no children. Code status: Full code. Smoking packs per day: 2 Smoking cigarettes per day: 40.0 Years smoked: 44 Smoking pack-years: 88.00 Smoking status: Current every day smoker Tobacco type: cigarettes Alcohol intake: never Substance use: former Substance use type: marijuana Spiritual care concerns: No Exam Narrative: APPEARANCE: No acute distress, nontoxic, resting in bed EYES: EOMI HEENT: Normocephalic, atraumatic, OMM RESPIRATORY: No respiratory distress Clear to auscultation bilaterally with no rhonchi wheezing or rales. CARDIOVASCULAR: Regular rate and rhythm without murmurs rubs or gallops. ABDOMINAL: Soft, nontender, nondistended, no rebound or guarding MUSCULOSKELETAl: Moves all extremities. No clubbing, cyanosis or edema. NEURO: Awake and alert x 4. Following commands, speech normal, muscle strength 5 out of 5 in the bilateral upper extremities and the right lower extremity muscle strength 4 out of 5 in the left lower EXTR SKIN:: Warm, dry. No rashes lesions or abrasions PSYCHIATRIC: Normal affect/mood, Course Course Emergency Course: Reviewed old records With case management who came down and evaluated patient patient is been [facility] she was able discussed with original nursing rehab and the patient is excepted that facility Discussed with patient results of workup and diagnos
[2022-06-04 12:32] LABS: Creatine Kinase 20 U/L (55-170)
--- NOTE | 2022-06-04 13:27 | PCCCNOTE ---
Met with patient bedside, patient is alert and oriented x 4, lives alone and has been unable to care for self. patients family brought to ER for weakness. CC met with patient regarding placement. patient has been to ENR in the past and would like to go back on his [place] Medicaid Benefit. Referral sent to [facility], Wendy from facility accepted with plan to initiate therapy at facility and obtain an [facility] auth. patient will dc today. MD and RN notified. CC will continue to follow for any needs that may arise.
[2022-06-04 13:35] LABS: Add Urine Microscopic? YES; Appearance Urine Cloudy (Clear); Bilirubin Urine Negative (Negative); Blood Urine Negative (Negative); Color Urine Yellow (Yellow); Glucose Urine UA Negative (Negative); Ketones Urine Negative (Negative); Leukocyte Esterase Ur Negative LEU/UL (Negative); Nitrate Urine Negative (Negative); Protein Urine Negative (Negative); RBC Urine 0-2 /hpf (0-2); Specific Grav Ur 1.016 (1.001-1.035); WBC Urine 0-3 /hpf
[2022-06-04 13:49] LABS: SARS-CoV-2 RNA PCR Negative
--- NOTE | 2022-06-04 14:26 | PC.NURSE ---
Report given to Nic at [facility].
== END 2022-06-04 16:05 ==
PROVIDERS: Emergency Medicine; Emergency Provider Emergency Medicine; PCP Internal Medicine
DX: R53.1 Weakness (principal); Z20.822 Contact with and (suspected) exposure to COVID-19; I69.954 Hemiplegia and hemiparesis following unspecified cerebrovascular disease affecting left non-dominant side; I25.10 Atherosclerotic heart disease of native coronary artery without angina pectoris; I10 Essential (primary) hypertension; E78.00 Pure hypercholesterolemia, unspecified; E03.9 Hypothyroidism, unspecified; F17.210 Nicotine dependence, cigarettes, uncomplicated; Z90.5 Acquired absence of kidney; Z87.01 Personal history of pneumonia (recurrent); I67.2 Cerebral atherosclerosis; I49.3 Ventricular premature depolarization
CPT/HCPCS: 36415; 70450; 71045; 71250; 80053; 81001; 82550; 85025; 93005; 99284; U0003; U0005